=== PATIENT | female | born 1935 | race Caucasian/White ===

== ENCOUNTER 2016-11-21 21:41 | Inpatient (IN) | payer MEDICAID ==
[~2016-11-21] VITALS: Ht 160 cm; Wt 45.0 kg
[2016-11-21] MEDS: DEXTROSE 5%-0.45% NACL 1,000 ML IV SCH (01:00)
[~2016-11-21 21:41] MED LIST: ACET-2047 PO; AMLO5TAB4 PO; ATOR80TA75 PO; CIPR-193 PO; CLOP75TA4 PO; LISI40TA9 PO; METO-448 PO; NEPH PO
[2016-11-21] MEDS ORDERED: VANCOMYCIN 1 GM (PMX) 250 ML IVPB STA (21:58)
[2016-11-21] MEDS ORDERED: CEFEPIME 2GM/50 ML (PMX) 50 ML IVPB STA (21:58)
--- NOTE | 2016-11-21 22:53 | RADRPT ---
PROCEDURE: CT Brain without contrast. CLINICAL INDICATION: Altered mental status changes TECHNIQUE: A CT of the brain was performed on a GE Collaberapeed 64-slice CT scanner utilizing axial imaging from the skull base through the vertex without IV contrast. Multiplanar reformatted images were made. Images were reviewed on a PACS workstation. The CTDIvol is 45.01 mGy and the DLP is 720 .23 mGycm. One of the following 3 dose reduction techniques were used: Automated exposure control; adjustment of the mA and/or kV according to patient size; or use of iterative reconstruction technique. COMPARISON: None FINDINGS: There is no intracranial hemorrhage, mass effect, or midline shift. No extra-axial fluid collection is seen. The ventricles and sulci are age appropriate. Moderate diffuse volume loss is present. A large wedge-shaped decreased attenuation is present in the right cerebral hemisphere involving the right anterior and middle cerebral artery distribution as well as a right chronic occipital lobe inf arct in the right posterior cerebral artery distribution. Subtle decreased attenuation is also note d in the bilateral cerebellar hemispheres and in the right greater than left centrum semiovale and p eriventricular white matter. Moderate vascular calcifications are present of the bilateral intracra nial internal carotid arteries and the bilateral vertebral arteries. The appearance of right [place] tiana degeneration is noted. The visualized scalp and calvarium are normal. The bilateral orbits demonstrate sequela of prior ca taract surgery. The bilateral paranasal sinuses, mastoid air cells and middle ear cavities are royce r. IMPRESSION: 1. No evidence of acute intracranial hemorrhage, infarcts, or acute intracranial pathology. MRI is recommended to further evaluate this patient to exclude an acute superimposed on above chronic infar cts. 2. Chronic right anterior and middle cerebral artery as well as subtotal posterior cerebral artery infarct with involvement of the right cerebral hemisphere as noted above. 3. 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 Severe volume loss in the right cerebral hemisphere with moderate volume loss diffusely. 5. Moderate atherosclerotic vascular disease RPTAT: HDC .Cara Arteaga MD, Date Time Electronically viewed and signed by .Cara Arteaga MD, on 11/21/2016 22:52 .C/
--- NOTE | 2016-11-21 23:07 | RADRPT ---
PROCEDURE: XR Chest. CLINICAL INDICATION: Possible sepsis. TECHNIQUE: Single frontal view of the chest was obtained COMPARISON: None FINDINGS: The heart and mediastinum are within normal limits. Atherosclerotic calcifications in the tortuous thoracic aorta. The lungs are clear. There is no pleural effusion or pneumothorax. IMPRESSION: Atherosclerotic calcifications in the tortuous thoracic aorta, otherwise, no evident acute cardiopul monary disease. RPTAT: [facility] Physician Giovanni Date Time Electronically viewed and signed by Physician Giovanni on 11/21/2016 23:07 RS/
[2016-11-21] MEDS ORDERED: ALBUTEROL 0.5% (NEB) 2.5 MG/0.5 ML AMP NEB PRN (23:30)
[2016-11-21] MEDS ORDERED: NACL 0.9% 3 ML SYG IV SCH (23:30)
[2016-11-21] MEDS ORDERED: ACETAMINOPHEN 325 MG TAB PO PRN (23:30)
[2016-11-21] MEDS ORDERED: HYDROCODONE/APAP (5/325) TAB PO PRN (23:30)
[2016-11-21] MEDS ORDERED: VANCOMYCIN IV PER PHARMACY XX SCH (23:30)
[2016-11-21] MEDS ORDERED: IPRATROPIUM (NEB) 0.5 MG/2.5 ML AMP NEB PRN (23:30)
[2016-11-21] MEDS ORDERED: ONDANSETRON 4 MG INJ IV PRN (23:30)
[2016-11-21 23:31] LABS: BASOPHIL # 0.1 10^3/ul (0.0-0.1); BASOPHILS % 0.6 % (0.0-2.0); EOSINOPHILS % 0.1 % (0.0-7.0); HEMATOCRIT 40.3 % (37.0-47.0); HEMOGLOBIN 12.5 g/dl (12.0-16.0); LYMPHOCYTES # 2.9 10^3/ul (0.8-2.9); MEAN CORPUSCULAR HEMOGLOBIN 20.4 pg (29.0-33.0); MEAN CORPUSCULAR HGB CONC 31.1 g/dl (32.0-37.0); MEAN CORPUSCULAR VOLUME 65.5 fl (82.0-101.0); MEAN PLATELET VOLUME 9.3 fl (7.4-10.4); MONOCYTE # 0.9 10^3/ul (0.3-0.9); MONOCYTES % 5.2 % (0.0-11.0); NEUTROPHIL # 14.2 10^3/ul (1.6-7.5); NEUTROPHILS % 78.1 % (39.0-77.0); PLATELET COUNT 328 10^3/UL (140-440); RED BLOOD COUNT 6.16 10^6/ul (4.20-5.40); RED CELL DISTRIBUTION WIDTH 19.5 % (11.5-14.5); UNCORRECTED WBC 18.2 10^3/ul (4.8-10.8); WHITE BLOOD COUNT 18.2 10^3/ul (4.8-10.8)
[2016-11-21 23:32] LABS: CONDITION 1; LH ANALYZER COMMENTS 1
--- NOTE | 2016-11-21 23:46 | ERA ---
ER Documentation Chief Complaint Date/Time DATE: 11/21/16 TIME: 23:44 Chief Complaint biba from snf due to alocn and difficulty swallowing since this am hx ofcva HPI This is an 81-year-old was brought in by ambulance for altered level consciousness from a halfway facility. She does have difficulty swallowing. Her transition she possibly aspirated. No fevers no chills. No other current complaints ROS All systems reviewed and are negative except as per history of present illness. PMhx/Soc History of Surgery: No (tamika) Anesthesia Reaction: No Hx Neurological Disorder: Yes (cva with left side weakness) Hx Respiratory Disorders: No (tamika) Hx Cardiac Disorders: No (tamika) Hx Psychiatric Problems: No (tamika) Hx Miscellaneous Medical Probl: No (tamika) Hx Alcohol Use: No Hx Substance Use: No Hx Tobacco Use: No Smoking Status: Never smoker Physical Exam Vitals Vital Signs Date Time Temp Pulse Resp B/P Pulse Ox O2 Delivery O2 Flow Rate FiO2 11/21/16 22:08 97.7 91 20 103/66 97 11/21/16 22:08 Nasal Cannula 2 Physical Exam Const: [] Head: Atraumatic Eyes: Normal Conjunctiva ENT: Normal External Ears, Nose and Mouth. Neck: Full range of motion..~ No meningismus. Resp: Clear to auscultation bilaterally Cardio: Regular rate and rhythm, no murmurs Abd: Soft, non tender, non distended. Normal bowel sounds Skin: No petechiae or rashes Back: No midline or flank tenderness Ext: No cyanosis, or edema Neur: Awake and alert Psych: Normal Mood and Affect Result Diagram: 11/21/165 Results 24 hrs Laboratory Tests Test 11/21/16 22:15 Basophils # 0.110^3/ul Basophils % 0.6% Blood Morphology Comment Eosinophils # 0.010^3/ul Eosinophils % 0.1% Hematocrit 40.3% Hemoglobin 12.5g/dl Lymphocytes # 2.910^3/ul Lymphocytes % 16.0% Mean Corpuscular Hemoglobin 20.4pg Mean Corpuscular Hemoglobin Concent 31.1g/dl Mean Corpuscular Volume 65.5fl Mean Platelet Volume 9.3fl Monocytes # 0.910^3/ul Monocytes % 5.2% Neutrophils # 14.210^3/ul Neutrophils % 78.1% Nucleated Red Blood Cells # 0.010^3/ul Nucleated Red Blood Cells % 0.0/100WBC Platelet Count 42493^3/UL Red Blood Count 6.1610^6/ul Red Cell Distribution Width 19.5% White Blood Count 18.210^3/ul Current Medications Medications (Trade) Dose Ordered Sig/Kary Route PRN Reason Start Time Stop Time Status Last Admin Dose Admin Vancomycin HCl 250 ml @ 125 mls/hr ONCE STAT IVPB 11/21/16 21:58 11/21/16 23:57 Cefepime HCl 50 ml @ 100 mls/hr ONCE STAT IVPB 11/21/16 21:58 11/21/16 22:27 DC 11/21/16 23:14 Dextrose/Sodium Chloride (D5-1/2ns) 1,000 ml @ 70 mls/hr [id number] IV 11/21/16 23:25 UNV IV Flush (NS 3 ml) 3 ml PER PROTOCOL IV 11/21/16 23:30 UNV Ondansetron HCl (Zofran Inj) 4 mg Q6H PRN IV NAUSEA AND/OR VOMITING 11/21/16 23:30 UNV Acetaminophen (Tylenol Tab) 650 mg Q6H PRN PO PAIN LEVEL 1-3 OR FEVER 11/21/16 23:30 UNV Acetaminophen/ Hydrocodone Bitart ([place] (5/325)) 1 tab Q6H PRN PO PAIN LEVEL 4-6 11/21/16 23:30 UNV Morphine Sulfate (morphine) 2 mg Q4H PRN IV PAIN LEVEL 7-10 11/21/16 23:30 UNV Docusate Sodium (Colace) 100 mg Q12H PRN PO CONSTIPATION 11/21/16 23:30 UNV Pantoprazole 40 mg 40 mg DAILY@06 IV 11/22/16 06:00 UNV Cefepime HCl (Maxipime 1gm/50 ml (Pmx)) 50 ml @ 100 mls/hr Q12 IV 11/22/16 09:00 UNV Vancomycin HCl (Vanco Iv Per Pharmacy) 1 ea PER PROTOCOL XX 11/21/16 23:30 UNV Albuterol (Proventil 0.5% (Neb)) 2.5 mg Q2H RESP THERAPY PRN NEB SHORTNESS OF BREATH 11/21/16 23:30 UNV Ipratropium [place] (Atrovent 0.02% (Neb)) 0.5 mg Q2H RESP THERAPY PRN NEB SHORTNESS OF BREATH 11/21/16 23:30 UNV Procedures/MDM EKG: Rate/Rhythm: [Normal Sinus Rhythm] QRS, ST, T-waves: [No changes consistent w/ acute ischemia] Impression: [No evidence of ischemia or arrhythmia] Chest X-ray 1V Interpreted by me: Soft Tissue: No acute abnormalities Bones: No acute abnormalities Mediastinum/Cardiac Silhouette/Lungs: Aspiration pattern Medical decision making: Is an 78-year-old female as well as aspiration pattern pneumonia. At this point is clinically stable. Patient will be admitted to Dr. Lr who is the patient's primary care physician. Started on broad- spectrum antibiotics. Departure Diagnosis: Primary Impression: Altered level of consciousness Additional Impression: Aspiration pneumonia Qualified Code: J69.0 - Aspiration pneumonia, unspecified aspiration pneumonia type, unspecified laterality, unspecified part of lung Condition: Stable EMI PERALTA Nov 21, 2016 23:46
[2016-11-22] VITALS (13 sets, daily range): BP systolic 105–158; BP diastolic 63–92; PULSE 88–109; RESP 20; Ht 160 cm; Wt 45.0 kg
[2016-11-22 00:17] LABS: ADD UMIC YES; URINE BILIRUBIN (Dip) NEGATIVE (NEGATIVE); URINE BLOOD (Dip) 3+ (NEGATIVE); URINE COLOR YELLOW (YELLOW); URINE GLUCOSE (Dip) NEGATIVE (NEGATIVE); URINE KETONES (Dip) NEGATIVE (NEGATIVE); URINE LEUKOCYTE ESTERASE (Dip) 3+ (NEGATIVE); URINE NITRITE (Dip) POSITIVE (NEGATIVE); URINE TOTAL PROTEIN (Dip) 2+ (NEGATIVE); URINE UROBILINOGEN (Dip) 0.2 E.U./dL (0.1-1.0)
[2016-11-22 00:21] LABS: ALBUMIN 3.7 g/dl (3.3-4.9)
[2016-11-22 00:22] LABS: POTASSIUM 4.3 mmol/L (3.5-5.1)
[2016-11-22 00:24] LABS: ALBUMIN/GLOBULIN RATIO 0.75; BILIRUBIN,INDIRECT 0.1 mg/dl (0-1.1); BILIRUBIN,TOTAL 0.1 mg/dl (0.2-1.3); CREATININE 1.9 mg/dl (0.44-1.00); TOTAL PROTEIN 8.6 g/dl (6.1-8.1)
[2016-11-22 00:25] LABS: CALCIUM 11.6 mg/dl (8.4-10.2)
[2016-11-22 00:34] LABS: BACTERIA,URINE MANY; SQUAMOUS EPITHELIAL CELL,UR FEW
[2016-11-22 00:39] LABS: TROPONIN-I 0.203 ng/ml (0.00-0.12)
[2016-11-22 05:19] LABS: PROTIME 82.3 Sec (12.2-14.2); PT RATIO 6.4
[2016-11-22 05:38] LABS: ALBUMIN 3.6 g/dl (3.3-4.9); POTASSIUM 4.5 mmol/L (3.5-5.1)
[2016-11-22 05:40] LABS: BASOPHILS % 0.4 % (0.0-2.0); CREATININE 1.85 mg/dl (0.44-1.00); EOSINOPHILS # 0.1 10^3/ul (0.0-0.5); EOSINOPHILS % 0.5 % (0.0-7.0); HEMATOCRIT 42.4 % (37.0-47.0); HEMOGLOBIN 13.1 g/dl (12.0-16.0); LYMPHOCYTES # 2.6 10^3/ul (0.8-2.9); LYMPHOCYTES % 20.3 % (15.0-51.0); MEAN CORPUSCULAR HEMOGLOBIN 20.5 pg (29.0-33.0); MEAN CORPUSCULAR VOLUME 66.3 fl (82.0-101.0); MEAN PLATELET VOLUME 9.3 fl (7.4-10.4); MONOCYTES % 8.2 % (0.0-11.0); NEUTROPHIL # 8.9 10^3/ul (1.6-7.5); NEUTROPHILS % 70.6 % (39.0-77.0); PLATELET COUNT 318 10^3/UL (140-440); RED CELL DISTRIBUTION WIDTH 19.5 % (11.5-14.5); UNCORRECTED WBC 12.6 10^3/ul (4.8-10.8); WHITE BLOOD COUNT 12.6 10^3/ul (4.8-10.8)
[2016-11-22 05:41] LABS: ALBUMIN/GLOBULIN RATIO 0.73; BILIRUBIN,INDIRECT 0.1 mg/dl (0-1.1); BILIRUBIN,TOTAL 0.1 mg/dl (0.2-1.3); CALCIUM 11.4 mg/dl (8.4-10.2); TOTAL PROTEIN 8.5 g/dl (6.1-8.1)
[2016-11-22 05:52] LABS: CONDITION 1; LH ANALYZER COMMENTS 1
[2016-11-22 05:57] LABS: PARTIAL THROMBOPLASTIN TIME 99.2 Sec (25.0-35.0)
[2016-11-22 06:03] LABS: THYROID STIMULATING HORMONE 1.41 MIU/L (0.465-4.680)
[2016-11-22 06:04] LABS: INR > 10.00
[2016-11-22] MEDS: PANTOPRAZOLE 40 MG INJ IV SCH (06:20)
[2016-11-22] MEDS ORDERED: PHYTONADIONE 10 MG in DEXTROSE 5% 50 ML IVPB ONE (07:00)
[2016-11-22] MEDS ORDERED: CEFEPIME 1GM/50 ML (PMX) 50 ML IV SCH (09:00)
[2016-11-22] MEDS: DEXTROSE 5%-0.45% NACL 1,000 ML IV SCH ×2 (14:28→23:40)
[2016-11-22] MEDS: ASPIRIN 81 MG TAB PO SCH (20:30)
[2016-11-22] MEDS: METOPROLOL 25 MG TAB GTB SCH (21:00)
--- NOTE | 2016-11-22 21:09 | HP ---
DATE OF ADMISSION: 11/21/2016 REASON FOR ADMISSION: Sepsis, UTI, hypernatremia, non-ST elevation myocardial, profound dehydration . 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 Currently, she resides at [facility]. Unfortunately, she also developed a left heel necrotic ulcer. She is being followed closely at [facility]. The patient, unfortunately prior to adm ission, was noted to be more lethargic and not eating. I decided to send her to the hospital for ev aluation, as the patient was more confused and encephalopathic. Upon arrival to the hospital, the p atient underwent extensive workup. Labs revealed a white count of 18.2. UA was profoundly positive . She had +3 leukocyte esterase, positive nitrite, and WBC greater than 50. In addition, INR was s upratherapeutic, greater than 10. Chest x-ray was read as negative, but she may have developed omi y aspiration pneumonia. CAT scan of the brain did not reveal any evidence of acute bleeding. It wa s decided to admit the patient for further care, as patient also had elevated BUN and creatinine at BUN of 100, creatinine of 1.9 with a lactic acid of 3.2, all suggestive of sepsis. The patient was hydrated aggressively and started on broad-spectrum antibiotic with vancomycin and cefepime. Sodium was high as well at 160. Since arrival, I also gave her vitamin K 10 mg IV x1. The patient cannot provide any history because of her encephalopathy. Family is at bedside, both son and daughter. I spoke with them for over 50 minutes about patient's condition and plan of care. We reviewed labs a nd old radiographic imaging. Case discussed with nursing staff as well, and I have spoken today wit h the speech therapist, as patient is high risk of aspiration and currently lethargic because of her acute medical issues. The patient is admitted for further care stable, but guarded condition overa ll. 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 CODE STATUS: The patient is FULL CODE. SURGICAL HISTORY: None. MEDICATIONS: The patient's medication includes: 1. Coumadin 3 mg daily, currently on hold because of supratherapeutic INR. Actually was changed 2 mg daily. 2. Recently was treated with Cipro for UTI for 7 days, on 11/02/2016. 3. Folic acid 1 mg daily. 4. Multivitamin 1 tablet daily. 5. Plavix 75 mg daily. 6. On pureed diet, no added salt. 7. Metoprolol 25 b.i.d. 8. Tylenol p.r.n. 9. Lipitor 20 mg at bedtime. 10. Dexilant 20 mg daily. 11. Lisinopril 40 mg daily. 12. Vitamin D 50,000 every week. 13. ____ 30 mL daily. 14. Zofran p.r.n. 15. Ibuprofen p.r.n. ALLERGIES: NO KNOWN DRUG ALLERGIES. PHYSICAL EXAMINATION: VITAL SIGNS: Temperature 98.4, pulse is 100, respirations 20, blood pressure 125/79, saturation 96% on 2 liters. GENERAL: The patient in no acute distress, frail, thin looking, pale. CARDIOVASCULAR: S1, S2, regular rate. LUNGS: Decreased bilaterally, poor effort. ABDOMEN: Soft, nontender. EXTREMITIES: No clubbing, cyanosis, or edema. The patient with severe muscle atrophy throughout. She has a necrotic left heel ulcer. NEUROLOGIC: Decreased mobility throughout. EKG: Shows sinus rhythm with short CT, possible left atrial enlargement, septal infarct, age undete rmined, at 90 beats per minute. IMAGING: Chest x-ray shows atherosclerotic calcification and tortuous thoracic aorta, otherwise no evidence of acute cardiopulmonary disease. CT scan of the brain shows no evidence of acute intracra nial hemorrhage, infarct, or acute intracranial pathology. MRI is recommended to further evaluate t his patient to exclude an acute superimposed on above chronic infarct. There is chronic right anter ior and middle cerebral artery as well as subtotal posterior cerebral artery infarct with involvemen t of the right cerebral hemisphere noted. There is chronic, right greater than left, bilateral micr ovascular ischemic changes, severe volume loss in the right cerebral hemisphere with moderate volume loss diffusely, and moderate atherosclerotic vascular disease. LABORATORY DATA: White count initially was 18.2, now is 12.6, hemoglobin 13.1, hematocrit 42, plate let count 318 with normal differential. Chemistry: Sodium is 162, potassium 4.5, chloride 120, bic arbonate 23, BUN is 102, creatinine 1.85, glucose 141. Hemoglobin A1c 6.0. Troponin was slightly h igh at 0.29, 0.15. Calcium elevated at 11.4. Lactic acid normalized. It was 3.2 to 2.6, now 0.7. TSH 1.4. Cholesterol is 135, LDL 84. Total protein 8.5. UA was remarkably positive as noted abov e. INR greater than 10. Urine culture showed gram-negative rods greater than 100,000 ____. ASSESSMENT AND PLAN: This is an unfortunate 81-year-old female with history of cereb rovascular accident, very debilitated, dysphagia, hypertension, left hemiplegia, carotid stenosis wh o presents with encephalopathy, dehydration, acute renal failure, urinary tract infection, and sepsi s. 1. Respiratory. Stable. The patient is high risk for aspiration. In the meantime, we will keep h er n.p.o. until she is more alert. I appreciate speech therapy. May consider giving her food for o ral gratification, but overall will have to monitor. In the meantime, n.p.o. as the patient is too lethargic. Continue oxygen support and monitor. 2. Cardiovascular. The patient with supratherapeutic INR status post vitamin K 10 mg IV x1. Follo w up INR. Goal INR between 2 and 3, as she had history of deep vein thrombosis. We will obtain a l ower extremity ultrasound to rule out deep vein thrombosis and will follow. Continue medical manage ment, otherwise. This patient has elevated troponin as well. Cardiology was consulted. Aspirin on hold secondary to elevated INR. Continue statin and we will follow. 3. Renal. The patient with acute renal failure, severe dehydration, hypernatremia. Continue IV fl uids with D5 half normal saline. 4. Malnutrition. We will obtain GI consultation for G-tube placement, as family is overall in agre ement. 5. History of elevated CEA. We will repeat. GI to follow. Will check stool for occult blood. 6. Sepsis. The patient with urosepsis. We will continue antibiotics with vancomycin and cefepime. White count is already improving. Follow up urine culture results. 7. Left heel necrotic tissue. Will obtain venous and arterial ultrasound of the lower extremities to check for circulation. Will consult the [facility] for further recommendations . 8. Air mattress bed was ordered to be placed soon. 9. Case discussed with family members in detail at bedside. We will follow. Dictated By: SHAWNA DONALD/RAQUEL Conf#: [id number] DID#: [id number]
--- NOTE | 2016-11-22 21:34 | RADRPT ---
PROCEDURE: US bilateral lower extremity veins. CLINICAL INDICATION: Bilateral leg pain and swelling. Left heel ulcer. TECHNIQUE: Multiple longitudinal and transverse images of the bilateral lower extremity veins were obtained with quick scale and color Doppler imaging. The common femoral vein, femoral vein, and popl iteal vein were evaluated. 2D grayscale measurements with compression sonography, color Doppler, and pulsed Doppler with augmentation. COMPARISON: No prior studies are available for comparison. FINDINGS: The bilateral common femoral, femoral and popliteal veins are normally compressible throughout. Col or flow demonstrates normal filling of the vessels. Normal waveforms are visualized and there is no rmal response to augmentation. 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 IMPRESSION: 1. No evidence of deep vein thrombosis involving either lower extremity. 2. 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 RPTAT: QQ .Marc Hernandez MD, MD Date Time Electronically viewed and signed by .Marc Hernandez MD, on 11/22/2016 21:34 .R/
--- NOTE | 2016-11-22 21:38 | RADRPT ---
PROCEDURE: US bilateral lower extremity arteries. CLINICAL INDICATION: Bilateral leg pain. Claudication that interferes significantly with the julio césar ent's lifestyle. Left heel ulcer. TECHNIQUE: Multiple longitudinal and transverse images of the bilateral lower extremity arteries w ere obtained with quick scale, pulsed Doppler, and color Doppler imaging. COMPARISON: No prior studies are available for comparison. FINDINGS: Right COMMERCIAL REAL ESTATE AGENT:58 cm/sec PSFA:44 cm/sec MSFA:30 cm/sec DSFA:26 cm/sec POP:55 cm/sec CHUTE GREASER:30 cm/sec DPA:Not visualized Left COMMERCIAL REAL ESTATE AGENT:73 cm/sec PSFA:75 cm/sec MSFA:83 cm/sec DSFA:54 cm/sec POP:75 cm/sec CHUTE GREASER:34 cm/sec DPA:20 cm/sec This is a suboptimal study due to patient inability to cooperate. 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 IMPRESSION: 1. Suboptimal study. 2. 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 Correl ation with CT angiogram of the abdominal aorta and runoff vessel should be considered. RPTAT: QQ .Marc Hernandez MD, MD Date Time Electronically viewed and signed by .Marc Hernandez MD, on 11/22/2016 21:38 .R/
[2016-11-22] MEDS: ASPIRIN 300 MG SUPP PR SCH (22:34)
[2016-11-23] VITALS (12 sets, daily range): BP systolic 123–146; BP diastolic 74–90; PULSE 87–107; RESP 18–20
[2016-11-23] MEDS: PANTOPRAZOLE 40 MG INJ IV SCH (06:07)
[2016-11-23 07:10] LABS: BASOPHILS % 0.3 % (0.0-2.0); EOSINOPHILS # 0.1 10^3/ul (0.0-0.5); EOSINOPHILS % 0.9 % (0.0-7.0); HEMATOCRIT 41.9 % (37.0-47.0); LYMPHOCYTES # 2.3 10^3/ul (0.8-2.9); LYMPHOCYTES % 19.1 % (15.0-51.0); MEAN CORPUSCULAR HEMOGLOBIN 20.6 pg (29.0-33.0); MEAN CORPUSCULAR VOLUME 66.5 fl (82.0-101.0); MEAN PLATELET VOLUME 9.5 fl (7.4-10.4); MONOCYTE # 0.9 10^3/ul (0.3-0.9); MONOCYTES % 7.1 % (0.0-11.0); NEUTROPHIL # 8.9 10^3/ul (1.6-7.5); NEUTROPHILS % 72.6 % (39.0-77.0); PLATELET COUNT 261 10^3/UL (140-440); RED CELL DISTRIBUTION WIDTH 19.4 % (11.5-14.5); UNCORRECTED WBC 12.2 10^3/ul (4.8-10.8); WHITE BLOOD COUNT 12.2 10^3/ul (4.8-10.8)
[2016-11-23 07:45] LABS: INR 1.53; PROTIME 18.5 Sec (12.2-14.2); PT RATIO 1.4
[2016-11-23 07:46] LABS: CONDITION 1; LH ANALYZER COMMENTS 1; PARTIAL THROMBOPLASTIN TIME 41.9 Sec (25.0-35.0)
[2016-11-23 07:49] LABS: ALBUMIN 3.4 g/dl (3.3-4.9); POTASSIUM 4.7 mmol/L (3.5-5.1)
[2016-11-23 07:51] LABS: BILIRUBIN,INDIRECT 0.2 mg/dl (0-1.1); BILIRUBIN,TOTAL 0.2 mg/dl (0.2-1.3); CREATININE 1.17 mg/dl (0.44-1.00)
[2016-11-23 07:52] LABS: ALBUMIN/GLOBULIN RATIO 0.72; TOTAL PROTEIN 8.1 g/dl (6.1-8.1)
--- NOTE | 2016-11-23 08:07 | CONS ---
DATE OF ADMISSION: 11/21/2016 DATE OF CONSULTATION: 11/22/2016 TYPE OF CONSULTATION: Cardiology. REFERRING PHYSICIAN: Carlos Bowers MD REASON FOR CONSULTATION: Abnormal troponin. CHIEF COMPLAINT: Possible aspiration pneumonia, difficulty swallowing, altered level of consciousne ss. HISTORY OF PRESENT ILLNESS: Thank you for this referral. History obtained from the extensive revie w of the chart, review of the old chart, discussion with the staff and physician. The patient is un able to provide any history to me. This is an unfortunate 81-year-old female with multiple complica calos medical history who was brought from senior living, apparently because of altered level of consci ousness. She was felt to have underlying infection. Her troponin was mildly elevated for which I w as kindly asked ____. No history could be obtained from the patient. No reported chest pain or pre ssure; however, again unable to provide any history from the patient. PAST MEDICAL HISTORY: Mostly from review of the old chart, history of CVA, hypertension, hyponatrem ia, dyslipidemia, dysphagia, history of complete chronic occlusion of the right internal carotid art bunny. ALLERGIES: NO KNOWN DRUG ALLERGIES. PAST SURGICAL HISTORY: None. SOCIAL HISTORY: No reported active tobacco or drug abuse, in a senior living. FAMILY HISTORY: No reported coronary artery disease. MEDICATIONS: As per medication reconciliation, personally reviewed. REVIEW OF SYSTEMS: Unable to obtain except for the above-mentioned. PHYSICAL EXAMINATION: VITAL SIGNS: Temperature 98.4, heart rate 100, blood pressure 125/79, respiration rate of 20, satur ating 96%. HEENT: Normocephalic, atraumatic. Thin female. Pupils are equal. CARDIOVASCULAR: Regular rate and rhythm. PULMONARY: No wheezes heard. GASTROINTESTINAL: Soft. No rebound. EXTREMITIES: With positive ankle edema. NEUROLOGIC: Opens eyes. Does not answer questions. LABORATORY: 1. WBC of 12.6, hemoglobin 13.1, platelets of 318. Sodium 162, potassium 4.5, BUN of 102, creatini ne 1.85, glucose of 141. Troponin is 0.203, second was 0.153. Review of the old chart shows that c reatinine was normal at 0.6 a few months ago. 2. EKG shows normal sinus rhythm. Anteroseptal infarct, age undetermined. 3. Urine shows gram-negative rods. 4. Chest x-ray shows ____ calcification, tortuous thoracic aorta. No acute cardiopulmonary disease . Brain CT shows no evidence of acute intracranial hemorrhage, infarct, or acute intracranial patho logy. ASSESSMENT AND PLAN: 1. Abnormal troponin, most likely ____ false positive troponin secondary to renal failure. 2. Acute renal failure. 3. Acute hypernatremia. 4. Dehydration. 5. Urinary tract infection. 6. Encephalopathy, probably related to above. 7. History of cerebrovascular accident. 8. Hypertension. RECOMMENDATIONS: I will start the patient on aspirin. Will start the patient on low dose of beta-b locker. IV fluid as per internal medicine. Follow up electrolytes and correct as needed. Dictated By: REBECA RADFORD/RAQUEL Conf#: [id number] DID#: [id number]
[2016-11-23 08:21] LABS: THYROID STIMULATING HORMONE 2.8 MIU/L (0.465-4.680)
[2016-11-23] MEDS ORDERED: CEFEPIME 1GM/50 ML (PMX) 50 ML IV SCH (09:00)
[2016-11-23] MEDS: ASPIRIN 81 MG TAB PO SCH (09:00)
[2016-11-23] MEDS ORDERED: INFLUENZA VIRUS VACCINE 0.5 ML (DISPENSING) IM* ONE (09:00)
[2016-11-23] MEDS: METOPROLOL 25 MG TAB GTB SCH ×2 (09:00→21:00)
[2016-11-23 09:10] LABS: MAGNESIUM 2.6 mg/dl (1.7-2.5); PHOSPHORUS 3.4 mg/dl (2.5-4.9)
[2016-11-23] MEDS: DEXTROSE 5%-0.45% NACL 1,000 ML IV SCH ×2 (09:40→21:48)
--- NOTE | 2016-11-23 11:02 | RADRPT ---
Echocardiogram Report Patient Name: JASE LOYA Gender: Female Date: 1935 Study Date: 23-Nov-2016 Monitoring And Evaluation Advisor: Ed Mendieta [facility] Location: [id number] Ref. Physician: REBECA CLANCY Quality: Technically Difficult Study Procedures: Transthoracic echocardiogram with complete 2D, M-Mode, and doppler examination. Indications: positive troponin. 2D/M Mode Doppler Measurement Value Normal Ranges Measurement Value Normal Ranges LVIDd 2D 3.2 3.5 - 5.6 cm AV Peak Matthew 1.7 m/sec LVIDs 2D 2.0 2.1 - 4.1 cm AV Peak PG 11.0 mmHg FS 2D 38.9 % LVOT Peak Matthew 1.0 m/sec LVPWd 2D 0.9 0.6 - 1.1 cm LVOT Peak PG 4.0 mmHg IVSd 2D 0.8 0.6 - 1.1 cm MV E Peak Matthew 0.5 m/sec IVS/LVPW 2D 0.9 MV A Peak Matthew 1.1 m/sec AoR Diam 2D 2.6 2.0 - 3.7 cm MV E/A 0.5 LA/Ao 2D 1 0 - 1 MV Decel Time 173 msec EDV 2D 33.1 cm3 MV E/A 0.5 ESV 2D 7.5 cm3 TR Peak Matthew 2.5 m/sec LA Dimen 2D 3.2 2.3 - 4.0 cm TR Peak PG 25.0 mmHg RVSP 28.0 mmHg Findings Left Ventricle: Normal left ventricular systolic function. Normal left ventricular cavity size. Normal left ventricular wall thickness. Ejection fraction is visually estimated at 65 - 70 %. Tissue Doppler/Mitral Doppler indices are consistent with impaired relaxation (Stage I diastolic dysfunction). Right Ventricle: Mild enlargement of right ventricle. Mild right ventricular hypokinesis. Left Atrium: The left atrium is normal in size. Right Atrium: There is mild enlargement of right atrium. Mitral Valve: Mitral valve leaflets appear mildly thickened. Mild mitral annular calcification. Trace mitral regurgitation. Aortic Valve: No significant aortic stenosis or insufficiency. Aortic cusps appear moderately calcified. Tricuspid Valve: Normal appearance of the tricuspid valve. Estimated peak PA systolic pressure 28 mmHg. There is trace tricuspid regurgitation. Pericardium: Normal pericardium with no significant pericardial effusion. Aorta: Normal aortic root. IVC: Normal size and normal respiratory collapse consistent with normal right atrial pressure. Conclusions 1.Normal left ventricular systolic function. Normal left ventricular cavity size. Normal left ventricular wall thickness. Ejection fraction is visually estimated at 65 - 70 %. Tissue Doppler/Mitral Doppler indices are consistent with impaired relaxation (Stage I diastolic dysfunction). 2.The left atrium is normal in size. 3.Mitral valve leaflets appear mildly thickened. Mild mitral annular calcification. Trace mitral regurgitation. 4.No significant aortic stenosis or insufficiency. Aortic cusps appear moderately calcified. 5.Normal appearance of the tricuspid valve. Estimated peak PA systolic pressure 28 mmHg. There is trace tricuspid regurgitation. Electronically Signed By: Rebeca Clancy 23-Nov-2016 11:01:30 -0800 Patient Name: JASE LOYA Study Date: 23-Nov-[id number]
[2016-11-23 11:43] LABS: CK-MB 4.49 ng/ml (0.0-2.4)
[2016-11-23 11:46] LABS: TROPONIN-I 0.093 ng/ml (0.00-0.12)
[2016-11-23] MEDS ORDERED: VANCOMYCIN 750 MG in SOD CHLORIDE 0.9% 150 ML IVPB SCH ×2 (12:00→23:00)
[2016-11-23] MEDS: ASPIRIN 300 MG SUPP PR SCH (13:00)
[2016-11-23] MEDS ORDERED: GENTAMICIN IV PER PHARMACY XX SCH (15:00)
[2016-11-23] MEDS ORDERED: GENTAMICIN 80 MG/NS (PMX) 50 ML IVPB SCH (16:00)
--- NOTE | 2016-11-23 17:32 | PN ---
DATE: 11/23/2016 CARDIOLOGY FOLLOWUP PROGRESS NOTE SUBJECTIVE: Surgery discussed with the staff. Rhythm strip was reviewed. The patient remains in s inus rhythm, frequent PACs, nonverbal, unable to obtain history from the patient. MEDICATIONS: Reviewed. The patient is n.p.o., unable to take any p.o. medications. PHYSICAL EXAMINATION: VITAL SIGNS: Temperature 97.8, heart rate of 103, blood pressure 137/85, respiratory rate of 18. HEENT: Normocephalic, atraumatic. Elderly female. Pupils are equal. NECK: No JVD. CARDIOVASCULAR: Regular rate and rhythm. Systolic murmur. PULMONARY: With minimal rhonchi. GASTROINTESTINAL: Soft, nontender. EXTREMITIES: With no significant lower extremity edema. NEUROLOGIC: Opens her eyes, but drowsy. Left-sided weakness noted as well. LABORATORY: WBC of 12.2, hemoglobin 13.0, platelets 261. Sodium 157, potassium 4.7, BUN of 70, cre atinine 1.17, glucose 125. Troponin 0.093. Echocardiogram was obtained which was personally review ed, showed ejection fraction of 65% to 70%. ASSESSMENT AND PLAN: 1. Abnormal troponin consistent with false positive troponin. 2. Acute renal failure. 3. Severe hypernatremia. 4. Dehydration. 5. Urinary tract infection. 6. Severe encephalopathy with history of cerebrovascular accident. 7. Hypertension. RECOMMENDATIONS: Will correct electrolytes as needed. IV fluid as per internal medicine. Aspirin will be continued. Otherwise, beta sandip to be started once the patient tolerates p.o. medication . Dictated By: REBECA RADFORD/RAQUEL Conf#: [id number] DID#: [id number]
--- NOTE | 2016-11-23 18:54 | PN ---
DATE: 11/23/2016 SUBJECTIVE: The patient seen, alert and nonverbal, overall appears to be comfortable. Noted wound care consult. I spoke with the son today who has stated that he would like to defer the G-tube plac ement for 1 more day when he is here and present for the procedure. PHYSICAL EXAMINATION: VITAL SIGNS: Temperature 97.6, pulse 103, respirations 18, blood pressure 137/95, saturation 98% on 2 liters. GENERAL: The patient is in no acute distress. Pale, and very debilitated. CARDIOVASCULAR: S1 and S2, tachycardic. LUNGS: Decreased bilaterally. ABDOMEN: Soft, nontender. EXTREMITIES: No clubbing, cyanosis, or edema. Patient has a left heel necrotic wound and some sacr al skin changes. LABORATORY DATA: White count is 12.2, hemoglobin 13, hematocrit 42, platelet count is 261, neutroph ils 72%, lymphocytes 19%, MCV is low at 67. Chemistry: Sodium improved to ____, potassium 4.7, chl oride 120, bicarbonate 21, BUN is 70, creatinine 1.17, glucose 125. AST 32, ALT 18, alkaline phosph atase 96. TSH 2.8, free T4 is 1.46. INR went down to 1.53, status post vitamin K. We will hold it and start her on Lovenox until she gets the G-tube. UA was positive for +3 leukocyte esterase, WBC greater than 50. Cultures of the urine showed Proteus mirabilis actually resistant to cefotaxime, resistant to Bactrim, only sensitive to tobramycin, gentamicin, intermediate for imipenem. MEDICATIONS: 1. Vancomycin IV dose per pharmacy. 2. Cefepime 1 gram q.24 hours. 3. Lopressor 12.5 b.i.d. 4. Aspirin 81 mg daily. 5. Protonix 40 mg IV daily. 6. Zofran p.r.n. 7. Tylenol p.r.n. 8. [place] p.r.n. 9. Morphine p.r.n. 10. Colace p.r.n. 11. Albuterol and Atrovent p.r.n. 12. Remains on D5 half normal at 100 mL an hour. ASSESSMENT AND PLAN: This is an unfortunate 81-year-old female with history of cereb rovascular accident, very debilitated, dysphagia, hypertension, left hemiplegia, carotid stenosis wh o presented with encephalopathy, dehydration, acute renal failure, urinary tract infection and sepsi s. 1. Respiratory. Stable. Continue aspiration precautions. I would definitely recommend a feeding tube until she is more alert. Speech therapy may follow to see if patient can be fed for ____. The patient is treated for possible early aspiration pneumonia. 2. Cardiovascular. Resume Lovenox. Hold Coumadin or Eliquis as the patient to undergo G-tube plac ement. Beta blockers to be initiated. We will place a possible NG tube to perform medication admin istration and feeding for now until consent is obtained for G-tube. 3. Renal. Continue IV hydration with D5 half normal saline. Sodium level is improving. Kidney fu nction is improving. 4. Malnutrition. Definitely needs a G-tube placement. 5. Left heel wound with peripheral vascular disease. Amputation Prevention consultation was obtain ed. Continue wound care consult recommendations. 6. History of elevated CEA, we will follow up with levels, check stool for occult blood. 7. Urosepsis and possible aspiration pneumonia and multidrug resistant urinary tract infection. I added gentamicin. May switch cefepime to imipenem. 8. The patient now with air mattress bed to keep the patient comfortable. Family was informed. Dictated By: SHAWNA DONALD/RAQUEL Conf#: [id number] DID#: [id number]
--- NOTE | 2016-11-23 20:34 | CONS ---
Date/Time of Note Date/Time of Note DATE: 11/23/16 TIME: 20:29 Assessment/Plan Assessment/Plan Additional Assessment/Plan ASSESSMENT AND PLAN: 1. Abnormal troponin, most likely false positive troponin secondary to renal failure. 2. Acute renal failure. 3. Acute hypernatremia. 4. Dehydration. 5. Urinary tract infection. 6. Encephalopathy, probably related to above. 7. History of cerebrovascular accident. 8. Hypertension. 9.dysphagia Plan PEG if family agrees,pt.failed swallow studyand family wants to repeat it Consultation Date/Type/Reason Admit Date/Time Nov 21, 2016 at 23:08 Subjective hx not possible: pt non-verbal Constitutional: poor po Gastrointestinal: other (dysphagia) Genitourinary: dysuria Neurologic: confusion Past Medical History Medical History: GERD, hypertension, urinary tract infection, other (cva) Family History Significant Family History: no pertinent family hx Social History Alcohol Use: none Smoking Status: Current every day smoker Drug Use: none Exam/Review of Systems Vital Signs Vitals Vital Signs Date Time Temp Pulse Resp B/P Pulse Ox O2 Delivery O2 Flow Rate FiO2 11/23/16 20:23 87 11/23/16 19:53 97.7 18 138/90 98 11/23/16 18:42 2.0 11/23/16 08:30 Nasal Cannula Intake and Output 11/22/16 11/22/16 11/23/16 15:00 23:00 07:00 Intake Total 0 ml 0 ml Output Total 600 ml 550 ml Balance -600 ml -550 ml Exam Constitutional: frail Psych: confusion Head: atraumatic, normocephalic Eyes: EOMI, PERRL, nl conjunctiva, nl lids, nl sclera ENMT: nl external ears & nose, nl lips & teeth, nl nasal mucosa & septum Neck: non-tender, supple Respiratory: clear to auscultation, normal air movement Cardiovascular: nl pulses, regular rate and rhythm Gastrointestinal: nl liver, spleen, non-tender, soft Results Result Diagram: 11/23/16 0600 11/23/16 0600 Results 24 hrs Laboratory Tests Test 11/23/16 06:00 Activated Partial Thromboplast Time 41.9 H Alanine Aminotransferase (ALT/SGPT) 18 Albumin 3.4 Albumin/Globulin Ratio 0.72 Alkaline Phosphatase 96 Anion Gap 21 H Aspartate Amino Transf (AST/SGOT) 32 B-Type Natriuretic Peptide 428 Basophils # 0.0 Basophils % 0.3 Blood Morphology Comment Blood Urea Nitrogen 70 #H Calcium Level 11.0 H Carbon Dioxide Level 21 Chloride Level 120 H Cholesterol Level 125 Cholesterol/HDL Ratio 5.0 Creatine Kinase 52 Creatine Kinase Index 8.6 Creatinine 1.17 H Creatinine Kinase MB (Mass) 4.49 H Direct Bilirubin 0.00 Eosinophils # 0.1 Eosinophils % 0.9 Free Thyroxine 1.46 Globulin 4.70 H Glucose Level 125 HDL Cholesterol 25 L Hematocrit 41.9 Hemoglobin 13.0 INR International Normalized Ratio 1.53 Indirect Bilirubin 0.2 LDL Cholesterol, Calculated 76 Lymphocytes # 2.3 Lymphocytes % 19.1 Magnesium Level 2.6 H Mean Corpuscular Hemoglobin 20.6 L Mean Corpuscular Hemoglobin Concent 31.0 L Mean Corpuscular Volume 66.5 L Mean Platelet Volume 9.5 Monocytes # 0.9 Monocytes % 7.1 Neutrophils # 8.9 H Neutrophils % 72.6 Nucleated Red Blood Cells # 0.0 Nucleated Red Blood Cells % 0.0 Phosphorus Level 3.4 Platelet Count 261 Potassium Level 4.7 Prothrombin Time 18.5 #H Prothrombin Time Ratio 1.4 Red Blood Count 6.30 H Red Cell Distribution Width 19.4 H Sodium Level 157 H Thyroid Stimulating Hormone (TSH) 2.800 Total Bilirubin 0.2 Total Protein 8.1 Triglycerides Level 119 Troponin I 0.093 White Blood Count 12.2 H Medications Medications Current Medications Dextrose/Sodium Chloride (D5-1/2ns) 1,000 ml @ 100 mls/hr Q10H IV Last administered on 11/22/16t 23:40; Admin Dose 100 MLS/HR; Start 11/21/16 at 23:25 Ondansetron HCl (Zofran Inj) 4 mg Q6H PRN IV NAUSEA AND/OR VOMITING; Start at 23:30 Acetaminophen (Tylenol Tab) 650 mg Q6H PRN PO PAIN LEVEL 1-3 OR FEVER; Start at 23:30 Acetaminophen/ Hydrocodone Bitart ([place] (5/325)) 1 tab Q6H PRN PO PAIN LEVEL 4 -6; Start 11/21/16 at 23:30 Morphine Sulfate (morphine) 2 mg Q4H PRN IV PAIN LEVEL 7-10; Start 11/21/16 at 23:30 Docusate Sodium (Colace) 100 mg Q12H PRN PO CONSTIPATION; Start 11/21/16 at 23: 30 Pantoprazole (Protonix Iv) 40 mg DAILY@06 IV Last administered on 11/23/16 06: 07; Admin Dose 40 MG; Start 11/22/16 at 06:00 Aspirin (Aspirin) 81 mg DAILY PO ; Start 11/22/16 at 20:30 Aspirin (Aspirin) 300 mg DAILY MA Last administered on 11/23/16 13:00; Admin Dose 300 MG; Start 11/22/16 at 20:30 Metoprolol Tartrate 25 mg 25 mg BID GTB ; Start 11/23/16 at 21:00 Imipenem/ Cilastatin Sodium (Primaxin 500 Mg/ 100 ml (Pmx)) 100 ml @ 100 mls/ hr Q12 IVPB ; Start 11/23/16 at 21:00 Gentamicin Sulfate GENTAMICIN PER PHARMACY NOTE XX ; Start 11/23/16 at 15:00 Gentamicin Sulfate (Gentamicin) 50 ml @ 104 mls/hr Q48H IVPB Last administered on 11/23/16 16:22; Admin Dose 104 MLS/HR; Start 11/23/16 at 16:00 LEANDRO BELL MD Nov 23, 2016 20:34
[2016-11-23] MEDS: IMIPENEM-CILAST 500MG IV (PMX) 100 ML IVPB SCH (21:47)
--- NOTE | 2016-11-23 23:34 | CONS ---
Date/Time of Note Date/Time of Note DATE: 11/23/16 TIME: 23:33 Assessment/Plan Assessment/Plan Problems: (1) Decubitus ulcer, heel Qualifiers: Additional Assessment/Plan Heels must be touching AIR only; no surgery recommended at this time. Thank you very much for involving me in the care of this patient. Patient will be followed in-house. Consultation Date/Type/Reason Admit Date/Time Nov 21, 2016 at 23:08 Date of Consultation: Dec 24, 2016 Type of Consultation: Foot and ankle surgery Reason for Consultation Evaluation of b/l feet and heel ulcers. Referring Provider: SHAWNA CAROLINA MD Hx of Present Illness Thank you very much for involving me in the care of this patient. As you know, this is an 81 year old female patient with multiple medical problems including history of CVA with left sided hemiplegia, hypertension, right ICA occlusion, GERD, dysphagia, and is debilitated. Patient resides at [facility] where she has developed an ulcer on her left heel. I was consulted for evaluation and treatment. At the time of the visit, patient's daughter was present and most of the history was obtained from her and chart review. Patient apparently has been treated for her ulceration at [facility]. Patient is currently on antibiotics and there are no heel elevators on her feet As per history of present illness. Constitutional: poor po Gastrointestinal: other (dysphagia) Genitourinary: dysuria Neurologic: confusion Psychological: confusion Past Medical History As per history of present illness. Medical History: GERD, hypertension, urinary tract infection, other (cva) Past Surgical History As per history of present illness. Social History As per history of present illness. Alcohol Use: none Smoking Status: Current every day smoker Drug Use: none Exam/Review of Systems Vital Signs Vitals Vital Signs Date Time Temp Pulse Resp B/P Pulse Ox O2 Delivery O2 Flow Rate FiO2 11/23/16 21:21 2.0 11/23/16 20:23 87 11/23/16 20:00 Nasal Cannula 11/23/16 19:53 97.7 18 138/90 98 Intake and Output 11/22/16 11/22/16 11/23/16 15:00 23:00 07:00 Intake Total 0 ml 0 ml Output Total 600 ml 550 ml Balance -600 ml -550 ml Exam Patient is laying supine in bed. She appears to be debilitated and contracted. Patient is non-communicative. Patient's daughter is present in the room and reports on her history. Bilateral feet were examined. Left heel decubitus ulceration present. The ulcer appears to be dry with black eschar plug. Surrounding skin is hyperkeratotic and there is no erythema. No fluctuance noted. Mild malodor present. There is dry skin noted on the posterior aspect of the right heel as well. No other open wounds noted on bilateral feet. Dorsalis pedis and posterior tibial pulse is weakly palpable bilateral feet. Temperature gradient is increased bilaterally. Labs and imaging were reviewed. Results Result Diagram: 11/23/16 0600 11/23/16 0600 Results 24 hrs Laboratory Tests Test 11/23/16 06:00 Activated Partial Thromboplast Time 41.9 H Alanine Aminotransferase (ALT/SGPT) 18 Albumin 3.4 Albumin/Globulin Ratio 0.72 Alkaline Phosphatase 96 Anion Gap 21 H Aspartate Amino Transf (AST/SGOT) 32 B-Type Natriuretic Peptide 428 Basophils # 0.0 Basophils % 0.3 Blood Morphology Comment Blood Urea Nitrogen 70 #H Calcium Level 11.0 H Carbon Dioxide Level 21 Chloride Level 120 H Cholesterol Level 125 Cholesterol/HDL Ratio 5.0 Creatine Kinase 52 Creatine Kinase Index 8.6 Creatinine 1.17 H Creatinine Kinase MB (Mass) 4.49 H Direct Bilirubin 0.00 Eosinophils # 0.1 Eosinophils % 0.9 Free Thyroxine 1.46 Globulin 4.70 H Glucose Level 125 HDL Cholesterol 25 L Hematocrit 41.9 Hemoglobin 13.0 INR International Normalized Ratio 1.53 Indirect Bilirubin 0.2 LDL Cholesterol, Calculated 76 Lymphocytes # 2.3 Lymphocytes % 19.1 Magnesium Level 2.6 H Mean Corpuscular Hemoglobin 20.6 L Mean Corpuscular Hemoglobin Concent 31.0 L Mean Corpuscular Volume 66.5 L Mean Platelet Volume 9.5 Monocytes # 0.9 Monocytes % 7.1 Neutrophils # 8.9 H Neutrophils % 72.6 Nucleated Red Blood Cells # 0.0 Nucleated Red Blood Cells % 0.0 Phosphorus Level 3.4 Platelet Count 261 Potassium Level 4.7 Prothrombin Time 18.5 #H Prothrombin Time Ratio 1.4 Red Blood Count 6.30 H Red Cell Distribution Width 19.4 H Sodium Level 157 H Thyroid Stimulating Hormone (TSH) 2.800 Total Bilirubin 0.2 Total Protein 8.1 Triglycerides Level 119 Troponin I 0.093 White Blood Count 12.2 H Medications Medications Current Medications Dextrose/Sodium Chloride (D5-1/2ns) 1,000 ml @ 100 mls/hr Q10H IV Last administered on 11/23/16 21:48; Admin Dose 100 MLS/HR; Start 11/21/16 at 23:25 Ondansetron HCl (Zofran Inj) 4 mg Q6H PRN IV NAUSEA AND/OR VOMITING; Start at 23:30 Acetaminophen (Tylenol Tab) 650 mg Q6H PRN PO PAIN LEVEL 1-3 OR FEVER; Start at 23:30 Acetaminophen/ Hydrocodone Bitart ([place] (5/325)) 1 tab Q6H PRN PO PAIN LEVEL 4 -6; Start 11/21/16 at 23:30 Morphine Sulfate (morphine) 2 mg Q4H PRN IV PAIN LEVEL 7-10; Start 11/21/16 at 23:30 Docusate Sodium (Colace) 100 mg Q12H PRN PO CONSTIPATION; Start 11/21/16 at 23: 30 Pantoprazole (Protonix Iv) 40 mg DAILY@06 IV Last administered on 11/23/16 06: 07; Admin Dose 40 MG; Start 11/22/16 at 06:00 Aspirin (Aspirin) 81 mg DAILY PO ; Start 11/22/16 at 20:30 Aspirin (Aspirin) 300 mg DAILY IN Last administered on 11/23/16 13:00; Admin Dose 300 MG; Start 11/22/16 at 20:30 Metoprolol Tartrate 25 mg 25 mg BID GTB ; Start 11/23/16 at 21:00 Imipenem/ Cilastatin Sodium (Primaxin 500 Mg/ 100 ml (Pmx)) 100 ml @ 100 mls/ hr Q12 IVPB Last administered on 11/23/16 21:47; Admin Dose 100 MLS/HR; Start 11/23/16 at 21:00 Gentamicin Sulfate GENTAMICIN PER PHARMACY NOTE XX ; Start 11/23/16 at 15:00 Gentamicin Sulfate (Gentamicin) 50 ml @ 104 mls/hr Q48H IVPB Last administered on 11/23/16 16:22; Admin Dose 104 MLS/HR; Start 11/23/16 at 16:00 LEON FLYNN DPM Nov 23, 2016 23:34
[2016-11-24] VITALS (12 sets, daily range): BP systolic 131–164; BP diastolic 72–95; PULSE 101–132; RESP 18–20
[2016-11-24] MEDS: DEXTROSE 5%-0.45% NACL 1,000 ML IV SCH ×3 (05:40→23:40)
[2016-11-24] MEDS: PANTOPRAZOLE 40 MG INJ IV SCH (05:45)
[2016-11-24 07:05] LABS: BASOPHIL # 0.1 10^3/ul (0.0-0.1); BASOPHILS % 0.5 % (0.0-2.0); EOSINOPHILS # 0.1 10^3/ul (0.0-0.5); EOSINOPHILS % 1.1 % (0.0-7.0); HEMATOCRIT 38.6 % (37.0-47.0); HEMOGLOBIN 12.1 g/dl (12.0-16.0); LYMPHOCYTES # 1.8 10^3/ul (0.8-2.9); LYMPHOCYTES % 15.7 % (15.0-51.0); MEAN CORPUSCULAR HEMOGLOBIN 20.8 pg (29.0-33.0); MEAN CORPUSCULAR HGB CONC 31.4 g/dl (32.0-37.0); MEAN CORPUSCULAR VOLUME 66.3 fl (82.0-101.0); MEAN PLATELET VOLUME 9.2 fl (7.4-10.4); MONOCYTES % 9.4 % (0.0-11.0); NEUTROPHIL # 8.2 10^3/ul (1.6-7.5); NEUTROPHILS % 73.3 % (39.0-77.0); PLATELET COUNT 259 10^3/UL (140-440); RED BLOOD COUNT 5.82 10^6/ul (4.20-5.40); RED CELL DISTRIBUTION WIDTH 19.8 % (11.5-14.5); UNCORRECTED WBC 11.2 10^3/ul (4.8-10.8); WHITE BLOOD COUNT 11.2 10^3/ul (4.8-10.8)
[2016-11-24 07:11] LABS: CONDITION 1; LH ANALYZER COMMENTS 1
[2016-11-24 07:18] LABS: MAGNESIUM 2.2 mg/dl (1.7-2.5); PHOSPHORUS 3.4 mg/dl (2.5-4.9); POTASSIUM 4.2 mmol/L (3.5-5.1)
[2016-11-24 07:20] LABS: CREATININE 0.99 mg/dl (0.44-1.00)
[2016-11-24] MEDS: IMIPENEM-CILAST 500MG IV (PMX) 100 ML IVPB SCH ×2 (08:36→23:44)
[2016-11-24] MEDS: METOPROLOL 25 MG TAB GTB SCH ×2 (09:00→21:00)
[2016-11-24] MEDS: ASPIRIN 81 MG TAB PO SCH (09:00)
--- NOTE | 2016-11-24 10:45 | PN ---
DATE: SUBJECTIVE: Regular rate and rhythm strip, patient remains in sinus rhythm with sinus tachycardia w ith frequent PACs. Remains nonverbal. MEDICATIONS: Reviewed. PHYSICAL EXAMINATION: VITAL SIGNS: Temperature 97.6, heart rate of 100, blood pressure 130/90, respiration rate of 20, sa turating 98%. HEENT: Normocephalic, atraumatic. Elderly female. CARDIOVASCULAR: Regular rate and rhythm. Systolic murmur. PULMONARY: With mild wheezes heard. GASTROINTESTINAL: Soft, nontender. EXTREMITIES: With trivial edema. NEUROLOGIC: Opens her eyes, does not verbalize, appears to have left-sided weakness. LABORATORY: WBC of 7.2, hemoglobin 12.1, platelets 25. Sodium 156, potassium 4.2, BUN of 49, creat inine 0.99, glucose of 93. ASSESSMENT AND PLAN: 1. Mildly abnormal troponin consistent with false positive troponin. 2. Renal failure, currently improved. 3. Hypernatremia. 4. Dehydration. 5. Urinary tract infection. 6. Encephalopathy. 7. History of cerebrovascular accident. 8. Hypertension 9. Dysphagia. RECOMMENDATIONS: We will continue with the aspirin as tolerated. IV fluid will be continued. Anti biotic as per Dr. Bowers and associates. Dictated By: REBECA RADFORD/RAQUEL Conf#: [id number] DID#: [id number]
[2016-11-24] MEDS: ASPIRIN 300 MG SUPP PR SCH (11:06)
[2016-11-24] MEDS: FLUCONAZOLE 100 MG/NS (PMX) 50 ML IVPB SCH (16:00)
--- NOTE | 2016-11-24 16:36 | PN ---
DATE: 11/24/2016 SUBJECTIVE: The patient is seen and remains encephalopathic. Not much responsive to me. Lying on the right side. The patient failed swallowing evaluation. A video swallow to be done as discussed with the son. In the meantime, he agreed to proceed with NG tube feeding. In addition, per nursing staff, the patient has some vaginal discharge. OBJECTIVE: VITAL SIGNS: Temperature is 98.1, pulse 62 to 118, respirations 18, blood pressure 150/77, saturati on 100% on 2 liters. GENERAL: The patient again lethargic, pale. CARDIOVASCULAR: S1 and S2, tachycardic. LUNGS: Decreased bilaterally. ABDOMEN: Soft, nontender. EXTREMITIES: No clubbing, cyanosis, or edema. The patient with left heel ulcer. LABORATORIES: Arterial ultrasound showed suboptimal study, biphasic and monophasic flow throughout bilaterally consistent with aortoiliac disease. Correlation with CT angiogram of the abdominal aort a and runoff vessels should be considered. Venous ultrasound showed no evidence of DVT. There is a neurysm or pseudoaneurysm measuring 1.5 x 1.5 cm arising from the left common femoral vein posterior ly. MEDICATIONS: Include 1. Lopressor 25 b.i.d. 2. Imipenem 500 IV q. 12. 3. Gentamicin IV dose per pharmacy. 4. Aspirin 81 mg daily. 5. Protonix 40 IV daily. 6. Zofran p.r.n. 7. Tylenol p.r.n. 8. [place] p.r.n. 9. Morphine p.r.n. 10. Colace p.r.n. 11. Albuterol and Atrovent p.r.n. 12. D5 half normal at 100 mL an hour. ASSESSMENT AND PLAN: This is an 81-year-old female with history of cerebrovascular, very debilitated, dysphagia, hypertension, left hemiplegia, carotid stenosis who presented with ence phalopathy, dehydration, acute renal failure, urinary tract infection, and sepsis. 1. Respiratory. Continue O2 support. The patient is too risky for feeding. In the meantime, we w ill place an NG tube. Video swallow will be done. Again, the patient may have early aspiration pne umonia. 2. Cardiovascular. Eliquis is on hold as patient may need a G-tube placement. In the meantime, co ntinue Lovenox for DVT prophylaxis. The patient with tachycardia in sinus with PVCs. Continue beta sandip, aspirin. Cardiology is following. 3. Mal[address]. Place NG tube for feeding for now. I would recommend a G-tube feeding to maximiz e wound healing and safety. 4. History of elevated CEA. Awaiting stool occult blood and CEA level. 5. Acute renal failure and hypernatremia. Continue D5 half normal saline. We will reduce the rate to 50 mL an hour. Then we can do free water flushes via NG tube when it is placed. 6. Infectious disease. The patient with broad spectrum antibiotic with imipenem, vancomycin, and G entamicin. This patient has multiple drug resistant UTI. 7. Continue air mattress bed. Keep heel off pressure. Long-term prognosis is guarded. I believe the family is more optimistic than medical history sugges ts and medical condition. We will continue to monitor. The patient remains FULL CODE. Condition r emains guarded. We will follow. Dictated By: SHAWNA DONALD/RAQUEL Conf#: [id number] DID#: [id number]
[2016-11-24] MEDS ORDERED: LIDOCAINE 1% (MDV) 20 ML INJ SC ONE (20:30)
[2016-11-24] MEDS ORDERED: GENTAMICIN 80 MG/NS (PMX) 50 ML IVPB SCH (22:00)
[2016-11-25] VITALS (18 sets, daily range): BP systolic 91–130; BP diastolic 52–87; PULSE 91–124; RESP 17–19
--- NOTE | 2016-11-25 02:30 | RADRPT ---
PROCEDURE: XR Chest. CLINICAL INDICATION: For NG tube placement verification TECHNIQUE: Portable single view of the chest COMPARISON: 08/11/2016 FINDINGS: Nasogastric tube is seen in place with the tip and side-hole within the stomach. Heart size appears within normal limits. The aorta is ectatic and calcified. No acute infiltrate, pleural effusion, or overt congestive heart failure is seen. No bony abnormality. IMPRESSION: Nasogastric tube and side-hole within the stomach. Aortic atherosclerosis. RPTAT: [facility] Physician Yayo Date Time Electronically viewed and signed by Fe Mccann Physician on 11/25/2016 02:29 LE/
[2016-11-25] MEDS: PANTOPRAZOLE 40 MG INJ IV SCH (05:25)
[2016-11-25] MEDS: DEXTROSE 5%-0.45% NACL 1,000 ML IV SCH ×2 (05:28→11:55)
[2016-11-25 08:17] LABS: BASOPHILS % 0.2 % (0.0-2.0); EOSINOPHILS % 0.2 % (0.0-7.0); HEMATOCRIT 38.5 % (37.0-47.0); HEMOGLOBIN 12.1 g/dl (12.0-16.0); LYMPHOCYTES # 1.7 10^3/ul (0.8-2.9); LYMPHOCYTES % 14.7 % (15.0-51.0); MEAN CORPUSCULAR HEMOGLOBIN 20.8 pg (29.0-33.0); MEAN CORPUSCULAR HGB CONC 31.5 g/dl (32.0-37.0); MEAN CORPUSCULAR VOLUME 65.9 fl (82.0-101.0); MEAN PLATELET VOLUME 9.3 fl (7.4-10.4); MONOCYTE # 0.7 10^3/ul (0.3-0.9); NEUTROPHIL # 9.3 10^3/ul (1.6-7.5); NEUTROPHILS % 78.9 % (39.0-77.0); PLATELET COUNT 246 10^3/UL (140-440); RED BLOOD COUNT 5.84 10^6/ul (4.20-5.40); RED CELL DISTRIBUTION WIDTH 19.4 % (11.5-14.5); UNCORRECTED WBC 11.8 10^3/ul (4.8-10.8); WHITE BLOOD COUNT 11.8 10^3/ul (4.8-10.8)
[2016-11-25 08:24] LABS: CREATININE 1.05 mg/dl (0.44-1.00)
[2016-11-25 08:31] LABS: CONDITION 1; LH ANALYZER COMMENTS 1
[2016-11-25] MEDS: METOPROLOL 25 MG TAB GTB SCH (09:00)
[2016-11-25] MEDS: ASPIRIN 81 MG TAB PO SCH (09:00)
[2016-11-25] MEDS: ASPIRIN 300 MG SUPP PR SCH (09:19)
[2016-11-25] MEDS: IMIPENEM-CILAST 500MG IV (PMX) 100 ML IVPB SCH ×2 (09:19→20:27)
--- NOTE | 2016-11-25 10:37 | PN ---
DATE: 11/25/2016 CARDIOLOGY FOLLOWUP SUBJECTIVE: Discussed with the surgeons. The patient remains in sinus rhythm, sinus tachycardia. Remains nonverbal. MEDICATIONS: Reviewed as per medication reconciliation, personally reviewed. PHYSICAL EXAMINATION: VITAL SIGNS: Temperature 98.1, heart rate of 120, blood pressure 92/52, respiration rate of 17. HEENT: Normocephalic, atraumatic. Elderly female. Status post NG tube in place. CARDIOVASCULAR: Tachycardic. PULMONARY: No wheezes heard. GASTROINTESTINAL: Soft, no rebound or guarding. EXTREMITIES: No significant edema. NEUROLOGIC: Opens her eyes. Does not answer questions. LABORATORY: Chest x-ray done shows NG tube in the stomach. ASSESSMENT AND PLAN: 1. Mildly abnormal troponin consistent with false positive troponin. 2. Renal failure, improved now. 3. Severe hypernatremia. 4. Dehydration. 5. Tachycardia. 6. Urinary tract infection. 7. Encephalopathy with history of cerebrovascular accident. 8. History of hypertension, currently hypotensive. 7. Dysphagia, status post NG tube in place. RECOMMENDATIONS: Will continue IV fluids. Followup labs from the morning. Beta sandip as tolerat ed to be given. Aspirin will be continued. Dictated By: REBECA SOLIMAN MD AV/NTS Conf#: [id number] DID#: [id number] CC: SHAWNA CAROLINA MD;*End*
[2016-11-25] MEDS ORDERED: BARIUM SULFATE 135 ML (E-Z HD) PO ONE (10:57)
[2016-11-25 12:45] LABS: PHOSPHORUS 3.2 mg/dl (2.5-4.9)
[2016-11-25 12:46] LABS: MAGNESIUM 2.1 mg/dl (1.7-2.5)
--- NOTE | 2016-11-25 13:52 | RADRPT ---
PROCEDURE: Video-fluoroscopy swallowing study. CLINICAL INDICATION: Dysphagia. TECHNIQUE: Fluoroscopic guided video swallowing study was done in conjunction with the speech ther apist. The study was confined to the oral, pharyngeal, and cervical phases of the swallowing mechani sm. 2.9 minutes of fluoroscopy time was used. COMPARISON: No prior study is available for comparison. FINDINGS: There is no evidence of aspiration during the exam. IMPRESSION: 1. Normal study. No aspiration. 2. Please refer to the speech therapist's recommendations for future feedings. RPTAT: QQ .Marc Hernandez MD, MD Date Time Electronically viewed and signed by .Marc Hernandez MD, on 11/25/2016 13:51 .R/
--- NOTE | 2016-11-25 13:56 | RADRPT ---
PROCEDURE: Ultrasound guidance for placement of needle in right upper extremity vein. CLINICAL INDICATION: Venous access. TECHNIQUE: Limited sonography of the right upper extremity was performed. Ultrasound images were recorded and stored in the patient's medical record. COMPARISON: None. FINDINGS: The ultrasound images demonstrate a patent right upper extremity vein. The PICC line was inserted b y the PICC line nurse. IMPRESSION: 1. Ultrasound guidance for a needle placement in a right upper extremity vein. 2. The visualized right upper extremity vein is patent. RPTAT: QQ .Marc Hernandez MD, MD Date Time Electronically viewed and signed by .Marc Hernandez MD, MD on 11/25/2016 13:56 .R/
--- NOTE | 2016-11-25 13:57 | RADRPT ---
PROCEDURE: XR Chest. CLINICAL INDICATION: Check PICC line position. TECHNIQUE: Single frontal view. COMPARISON: 11/24/2016. FINDINGS: There is a right arm PICC line with the tip in the lower superior vena cava. The lungs are clear. The heart size is normal. There is calcification in the aorta consistent with atherosclerosis. There is no pleural effusion or pneumothorax. Contrast is present in the colon from a prior study. IMPRESSION: 1. Satisfactory position of right arm PICC line. 2. Atherosclerosis. 3. Clear lungs. RPTAT: QQ .Marc Hernandez MD, MD Date Time Electronically viewed and signed by .Marc Hernandez MD, on 11/25/2016 13:57 .R/
[2016-11-25] MEDS: FLUCONAZOLE 100 MG/NS (PMX) 50 ML IVPB SCH (15:31)
--- NOTE | 2016-11-25 15:41 | PN ---
DATE: The patient is seen, appears lethargic upon evaluation. The son is at bedside. Case was discussed. The patient is in no distress. The patient is status post a video swallow test. I was informed t hat she passed the test, but looking at her she looks quite weak and lethargic, so I doubt this a sa fety of feeding her. The patient's speech therapy notes stated overall the patient presented with mi ld to moderately delayed swallow. The patient can go on pureed and nectar thickened liquids by spoon , but the patient remains at high risk. The patient may not meet nutritional needs for the p.o. diet . Recommend a dietary consult. The patient will be a good candidate for PEG, for meeting nutrition needs and p.o. for oral if unable to get nutritional needs with a p.o. diet only. PHYSICAL EXAMINATION: VITAL SIGNS: The patient's temperature is 97.9, pulse is 64 to 109. Currently on the monitor the p atient is in sinus, but multiple PACs. Again, blood pressure is 125/78, saturation is 100% on 2 lit ers. GENERAL: The patient is frail, pale. CARDIOVASCULAR: S1 and S2. Irregular. LUNGS: Decreased bilaterally. ABDOMEN: Soft, thin. EXTREMITIES: No clubbing, cyanosis, or edema. Left heel necrotic tissue. LABORATORY: White count remains high at 11.8, hemoglobin 12.1, hematocrit 39, platelet count is 246 , neutrophils 79%, lymphocytes 15%. Chemistry: Sodium 133, potassium 4.0, chloride 121, bicarbonat e 21, BUN is 41, creatinine 1.05, glucose of 96. Calcium is high at 11. CEA is 4.3. UA did show positive nitrites, +2 leukocyte esterase. Urine cultures did show Pr oteus mirabilis, only sensitive to gentamicin and tobramycin. MEDICATIONS: Include the followin. Gentamicin, IV dose per pharmacy. 2. Diflucan 100 mg IV daily, was held because of the planned procedure. She has a PICC line placed also in the right upper extremity. Other medications include: 3. Metoprolol 25 b.i.d. 4. Imipenem 500 IV q.12. 5. Aspirin 81 daily. 6. Protonix 40 mg IV daily. 7. Zofran p.r.n. 8. Tylenol p.r.n. 9. Morphine p.r.n. 10. Colace p.r.n. 11. Breathing treatments p.r.n. 12. On D5 half-normal saline at 50 mL an hour. Chest x-ray done yesterday shows a NG tube in a side hole within the stomach. Aortic atherosclerosi s. Again, since then the NG tube was removed as the patient had a swallow evaluation. ASSESSMENT AND PLAN: This is an 81-year-old female with a history of cerebrovascular , very debilitated, dysphagia, hypertension, left hemiplegia and carotid stenosis, who presented wit h encephalopathy, dehydration, acute renal failure, UTI, sepsis, and left heel wound. 1. Respiratory. Continue O2 support. Continue aspiration precautions. 2. Cardiovascular. The patient with arrhythmia. Continue beta blockers. Aspirin for cardiac prot ection. 3. Malnutrition. Recommend G-tube feedings for nutritional support. In the meantime, also oral fe eding, as the patient passed a video swallow, but would do placement on a nectar pureed diet. 4. Anemia. H and H is stable. 5. Acute renal failure and hypernatremia, improving with D5 half-normal saline. 6. Infectious disease. The patient with a urinary tract infection and possible aspiration pneumoni a. Urinary tract infection is Proteus mirabilis. On gentamicin and also on imipenem and vancomycin. Try to disconnect antibiotics soon. 7. Continue wound care and avoid pressure to the left heel, keep off pressure. 8. Long-term prognosis is guarded. Patient remains FULL CODE. The case was discussed with the son at bedside. 9. Vaginal discharge. I started her on Diflucan. Long-term prognosis remains guarded. 10. The patient is with a BMI of 17.6, suggestive at least of moderate protein malnutrition. We wi ll check a prealbumin. We will follow. Dictated By: SHAWNA DONALD/RAQUEL Conf#: [id number] DID#: [id number]
[2016-11-25] MEDS: METOPROLOL 25 MG TAB PO SCH (18:49)
[2016-11-25] MEDS ORDERED: METOPROLOL 25 MG TAB PO SCH (21:00)
--- NOTE | 2016-11-25 23:45 | CONS ---
Date/Time of Note Date/Time of Note DATE: 11/25/16 TIME: 23:45 Consult Date/Type/Reason Admit Date/Time Nov 21, 2016 at 23:08 Initial Consult Date Subjective Patient was seen at bedside. Daughter is present. Daughter denies any overnight adverse events. Patient remains unresponsive to verbal command. She is in no acute distress laying supine in bed. Objective Vital Signs Date Time Temp Pulse Resp B/P Pulse Ox O2 Delivery O2 Flow Rate FiO2 11/25/16 22:12 98.5 91 18 124/75 100 Nasal Cannula 2.0 Intake and Output 11/24/16 11/24/16 11/25/16 15:00 23:00 07:00 Intake Total 1100 ml 0 ml 420 ml Output Total 400 ml 400 ml Balance 1100 ml -400 ml 20 ml Patient is laying supine in bed in no acute distress. Patient has heel protectors intact to both feet. Left heel decubitus ulceration is unchanged. There is no sign of infection. Pedal pulses remain palpable and temperature gradient continues to be increased. No other major changes noted on examination. Results/Medications Result Diagram: 11/25/16 0700 11/25/16 0700 Results 24 hrs Laboratory Tests Test 11/25/16 07:00 Anion Gap 15 Basophils # 0.0 Basophils % 0.2 Blood Morphology Comment Blood Urea Nitrogen 41 H Calcium Level 11.0 H Carbon Dioxide Level 21 Carcinoembryonic Antigen 4.3 Chloride Level 121 H Creatinine 1.05 H Eosinophils # 0.0 Eosinophils % 0.2 Glucose Level 96 Hematocrit 38.5 Hemoglobin 12.1 Lymphocytes # 1.7 Lymphocytes % 14.7 L Magnesium Level 2.1 Mean Corpuscular Hemoglobin 20.8 L Mean Corpuscular Hemoglobin Concent 31.5 L Mean Corpuscular Volume 65.9 L Mean Platelet Volume 9.3 Monocytes # 0.7 Monocytes % 6.0 Neutrophils # 9.3 H Neutrophils % 78.9 H Nucleated Red Blood Cells # 0.0 Nucleated Red Blood Cells % 0.0 Phosphorus Level 3.2 Platelet Count 246 Potassium Level 4.0 Red Blood Count 5.84 H Red Cell Distribution Width 19.4 H Sodium Level 153 H White Blood Count 11.8 H Medications Current Medications Dextrose/Sodium Chloride (D5-1/2ns) 1,000 ml @ 50 mls/hr Q20H IV Last administered on 11/24/16t 23:40; Admin Dose 50 MLS/HR; Start 11/21/16 at 23:25 Ondansetron HCl (Zofran Inj) 4 mg Q6H PRN IV NAUSEA AND/OR VOMITING; Start at 23:30 Acetaminophen (Tylenol Tab) 650 mg Q6H PRN PO PAIN LEVEL 1-3 OR FEVER; Start at 23:30 Acetaminophen/ Hydrocodone Bitart ([place] (5/325)) 1 tab Q6H PRN PO PAIN LEVEL 4 -6; Start 11/21/16 at 23:30 Morphine Sulfate (morphine) 2 mg Q4H PRN IV PAIN LEVEL 7-10; Start 11/21/16 at 23:30 Docusate Sodium (Colace) 100 mg Q12H PRN PO CONSTIPATION; Start 11/21/16 at 23: 30 Pantoprazole (Protonix Iv) 40 mg DAILY@06 IV Last administered on 11/25/16 05: 25; Admin Dose 40 MG; Start 11/22/16 at 06:00 Aspirin (Aspirin) 81 mg DAILY PO ; Start 11/22/16 at 20:30 Aspirin 300 mg 300 mg DAILY [place] Last administered on 11/25/16 09:19; Admin Dose 300 MG; Start 11/22/16 at 20:30 Imipenem/ Cilastatin Sodium (Primaxin 500 Mg/ 100 ml (Pmx)) 100 ml @ 100 mls/ hr Q12 IVPB Last administered on 11/25/16 20:27; Admin Dose 100 MLS/HR; Start 11/23/16 at 21:00 Gentamicin Sulfate GENTAMICIN PER PHARMACY NOTE XX ; Start 11/23/16 at 15:00 Fluconazole/ Sodium Chloride (Diflucan 100 Mg/ NS (Pmx)) 50 ml @ 50 mls/hr Q24H IVPB Last administered on 11/25/16 15:31; Admin Dose 50 MLS/HR; Start at 16:00 IV Flush 10 ml 10 ml PRN PRN IV IV PROTOCOL; Start 11/25/16 at 14:00 Gentamicin Sulfate (Gentamicin) 50 ml @ 100 mls/hr Q24H IVPB ; Start 11/26/16 at 01:00 Miscellaneous Information (*Rx Drug Level Order Reminder*) 1 ONCE ONCE XX ; Start 11/26/16 at 00:00; Stop 11/26/16 at 00:01 Miscellaneous Information (*Rx Drug Level Order Reminder*) 1 ONCE ONCE XX ; Start 11/26/16 at 01:00; Stop 11/26/16 at 01:01 Miscellaneous Information (*Rx Drug Level Order Reminder*) 1 ONCE ONCE XX ; Start 11/26/16 at 02:00; Stop 11/26/16 at 02:01 Metoprolol Tartrate (Lopressor) 25 mg BID PO Last administered on 11/25/16t 18: 49; Admin Dose 25 MG; Start 11/25/16 at 18:44 Assessment/Plan Problems: (1) Decubitus ulcer, heel (2) Altered level of consciousness Additional Assessment/Plan Continue heel elevators bilateral feet. Patient will be followed in-house. The ulceration on the heel is stable. Remains at risk for infection. LEON FLYNN DPM Nov 25, 2016 23:45
[2016-11-26] VITALS (14 sets, daily range): BP systolic 98–129; BP diastolic 67–78; PULSE 63–86; RESP 17–19
[2016-11-26] MEDS ORDERED: GENTAMICIN 80 MG/NS (PMX) 50 ML IVPB SCH ×2 (01:00→13:00)
[2016-11-26] MEDS: DEXTROSE 5%-0.45% NACL 1,000 ML IV SCH ×2 (04:03→07:55)
[2016-11-26] MEDS: PANTOPRAZOLE 40 MG INJ IV SCH (05:08)
--- NOTE | 2016-11-26 06:59 | CONS ---
Date/Time of Note Date/Time of Note DATE: 11/26/16 TIME: 06:58 Assessment/Plan Assessment/Plan Additional Assessment/Plan Additional Assessment/Plan ASSESSMENT AND PLAN: 1. Abnormal troponin, most likely false positive troponin secondary to renal failure. 2. Acute renal failure. 3. Acute hypernatremia. 4. Dehydration. 5. Urinary tract infection. 6. Encephalopathy, probably related to above. 7. History of cerebrovascular accident. 8. Hypertension. 9.dysphagia,barium swallow study negative for aspiration Plan dysphagia diet as per speech therapist. Consultation Date/Type/Reason Admit Date/Time Nov 21, 2016 at 23:08 Initial Consult Date 24 HR Interval Summary Constitutional: no complaints Exam/Review of Systems Vital Signs Vitals Vital Signs Date Time Temp Pulse Resp B/P Pulse Ox O2 Delivery O2 Flow Rate FiO2 11/26/16 06:08 2.0 11/26/16 06:00 97.4 86 18 129/78 95 Nasal Cannula Intake and Output 11/25/16 11/25/16 11/26/16 15:00 23:00 07:00 Intake Total 210 ml 600 ml Output Total 350 ml 460 ml Balance -140 ml 140 ml Exam Constitutional: alert, oriented, well developed Psych: nl mood/affect, no complaints Head: atraumatic, normocephalic Eyes: EOMI, PERRL, nl conjunctiva, nl lids, nl sclera ENMT: nl external ears & nose, nl lips & teeth, nl nasal mucosa & septum Neck: non-tender, supple Respiratory: clear to auscultation, normal air movement Cardiovascular: nl pulses, regular rate and rhythm Gastrointestinal: nl liver, spleen, non-tender, soft Musculoskeletal: nl extremities to inspection, nl gait and stance Extremities: normal pulses Neurological: VESSEL LINER II-XII intact, nl mental status, nl speech, nl strength Skin: nl turgor, No rash or lesions Lymph: nl lymph nodes Results Result Diagram: 11/25/16 0700 11/25/16 0700 Results 24 hrs Laboratory Tests Test 11/25/16 07:00 11/26/16 00:05 Anion Gap 15 Basophils # 0.0 Basophils % 0.2 Blood Morphology Comment Blood Urea Nitrogen 41 H Calcium Level 11.0 H Carbon Dioxide Level 21 Carcinoembryonic Antigen 4.3 Chloride Level 121 H Creatinine 1.05 H Eosinophils # 0.0 Eosinophils % 0.2 Glucose Level 96 Hematocrit 38.5 Hemoglobin 12.1 Lymphocytes # 1.7 Lymphocytes % 14.7 L Magnesium Level 2.1 Mean Corpuscular Hemoglobin 20.8 L Mean Corpuscular Hemoglobin Concent 31.5 L Mean Corpuscular Volume 65.9 L Mean Platelet Volume 9.3 Monocytes # 0.7 Monocytes % 6.0 Neutrophils # 9.3 H Neutrophils % 78.9 H Nucleated Red Blood Cells # 0.0 Nucleated Red Blood Cells % 0.0 Phosphorus Level 3.2 Platelet Count 246 Potassium Level 4.0 Red Blood Count 5.84 H Red Cell Distribution Width 19.4 H Sodium Level 153 H White Blood Count 11.8 H Gentamicin Level Trough 2.5 *H Medications Medications Current Medications Dextrose/Sodium Chloride (D5-1/2ns) 1,000 ml @ 50 mls/hr Q20H IV Last administered on 11/26/16 04:03; Admin Dose 50 MLS/HR; Start 11/21/16 at 23:25 Ondansetron HCl (Zofran Inj) 4 mg Q6H PRN IV NAUSEA AND/OR VOMITING; Start at 23:30 Acetaminophen (Tylenol Tab) 650 mg Q6H PRN PO PAIN LEVEL 1-3 OR FEVER; Start at 23:30 Acetaminophen/ Hydrocodone Bitart ([place] (5/325)) 1 tab Q6H PRN PO PAIN LEVEL 4 -6; Start 11/21/16 at 23:30 Morphine Sulfate (morphine) 2 mg Q4H PRN IV PAIN LEVEL 7-10; Start 11/21/16 at 23:30 Docusate Sodium (Colace) 100 mg Q12H PRN PO CONSTIPATION; Start 11/21/16 at 23: 30 Pantoprazole (Protonix Iv) 40 mg DAILY@06 IV Last administered on 11/26/16 05: 08; Admin Dose 40 MG; Start 11/22/16 at 06:00 Aspirin (Aspirin) 81 mg DAILY PO ; Start 11/22/16 at 20:30 Aspirin 300 mg 300 mg DAILY [place] Last administered on 11/25/16 09:19; Admin Dose 300 MG; Start 11/22/16 at 20:30 Imipenem/ Cilastatin Sodium (Primaxin 500 Mg/ 100 ml (Pmx)) 100 ml @ 100 mls/ hr Q12 IVPB Last administered on 11/25/16 20:27; Admin Dose 100 MLS/HR; Start 11/23/16 at 21:00 Gentamicin Sulfate GENTAMICIN PER PHARMACY NOTE XX ; Start 11/23/16 at 15:00 Fluconazole/ Sodium Chloride (Diflucan 100 Mg/ NS (Pmx)) 50 ml @ 50 mls/hr Q24H IVPB Last administered on 11/25/16 15:31; Admin Dose 50 MLS/HR; Start at 16:00 IV Flush (NS 10 ml) 10 ml PRN PRN IV IV PROTOCOL; Start 11/25/16 at 14:00 Metoprolol Tartrate 25 mg 25 mg BID PO Last administered on 11/25/16 18:49; Admin Dose 25 MG; Start 11/25/16 at 18:44 Gentamicin Sulfate (Gentamicin) 50 ml @ 100 mls/hr Q36H IVPB ; Start 11/26/16 at 13:00 LEANDRO BELL MD Nov 26, 2016 06:59
[2016-11-26 08:09] LABS: BASOPHILS % 0.1 % (0.0-2.0); EOSINOPHILS # 0.2 10^3/ul (0.0-0.5); EOSINOPHILS % 1.3 % (0.0-7.0); HEMATOCRIT 32.4 % (37.0-47.0); HEMOGLOBIN 10.2 g/dl (12.0-16.0); LYMPHOCYTES # 1.9 10^3/ul (0.8-2.9); LYMPHOCYTES % 14.5 % (15.0-51.0); MEAN CORPUSCULAR HEMOGLOBIN 20.9 pg (29.0-33.0); MEAN CORPUSCULAR HGB CONC 31.6 g/dl (32.0-37.0); MEAN CORPUSCULAR VOLUME 66.2 fl (82.0-101.0); MEAN PLATELET VOLUME 9.5 fl (7.4-10.4); MONOCYTES % 7.7 % (0.0-11.0); NEUTROPHIL # 10.3 10^3/ul (1.6-7.5); NEUTROPHILS % 76.4 % (39.0-77.0); PLATELET COUNT 195 10^3/UL (140-440); RED CELL DISTRIBUTION WIDTH 19.5 % (11.5-14.5); UNCORRECTED WBC 13.4 10^3/ul (4.8-10.8); WHITE BLOOD COUNT 13.4 10^3/ul (4.8-10.8)
[2016-11-26 08:24] LABS: ALBUMIN 2.6 g/dl (3.3-4.9)
[2016-11-26 08:25] LABS: POTASSIUM 3.5 mmol/L (3.5-5.1)
[2016-11-26 08:27] LABS: ALBUMIN/GLOBULIN RATIO 0.7; CREATININE 1.06 mg/dl (0.44-1.00); TOTAL PROTEIN 6.3 g/dl (6.1-8.1)
[2016-11-26 08:28] LABS: CALCIUM 10.2 mg/dl (8.4-10.2); MAGNESIUM 1.9 mg/dl (1.7-2.5)
[2016-11-26 08:31] LABS: CONDITION 1; LH ANALYZER COMMENTS 1; SUSPECT 1
[2016-11-26] MEDS: ASPIRIN 300 MG SUPP PR SCH (09:00)
[2016-11-26] MEDS: ASPIRIN 81 MG TAB PO SCH (09:25)
[2016-11-26] MEDS: METOPROLOL 25 MG TAB PO SCH ×2 (09:26→20:49)
[2016-11-26] MEDS: IMIPENEM-CILAST 500MG IV (PMX) 100 ML IVPB SCH (10:05)
[2016-11-26] MEDS ORDERED: SOD CHLORIDE 0.9% 100 ML ONE (11:23)
[2016-11-26] MEDS ORDERED: METOCLOPRAMIDE 5 MG TAB PO SCH (15:30)
--- NOTE | 2016-11-26 16:07 | PN ---
DATE: 11/26/2016 SUBJECTIVE: The patient is seen and remains lethargic. She does respond to verbal stimuli, but ear lier she attempted to eat with the son, but unfortunately she vomited. I noted extensive recommenda tion by speech therapy which were noted. Case discussed in detail with nursing staff. In addition, the son was concerned about epigastric pain. I told him that she is on Protonix. As I recall, I t hink she had a history of C. diff, so we will entertain that to see if that is maybe the issue. We will deescalate antibiotics. OBJECTIVE: VITAL SIGNS: Temperature is 97.9, pulse 72, respirations 17, blood pressure is 98/67, saturation 95 % on 2 liters. GENERAL: The patient is in no acute distress, appears comfortable, pale, nonresponsive. CARDIOVASCULAR: S1 and S2, irregular at times. LUNGS: Clear bilaterally. ABDOMEN: Soft, nontender. EXTREMITIES: No clubbing, cyanosis, or edema. She does have a left heel necrotic wound. LABORATORY DATA: White count is 13.4, hemoglobin 10.2, hematocrit 32, platelet count 195, neutrophi ls 76%, lymphocytes 15%. Chemistry: Sodium is 151, potassium 3.5, chloride 118, bicarbonate 21, BU N is 37, creatinine 1.06, glucose of 100. Prealbumin is low at 8.8, albumin 2.6. CEA is 4.3, twan l. Urine culture did show Proteus mirabilis sensitive to gentamicin and tobramycin intermediate to imipenem. MEDICATIONS: Include 1. Gentamicin. 2. Lopressor 25 b.i.d. 3. Diflucan daily. 4. Imipenem 500 IV q.12 which I just stopped. 5. Aspirin 81 daily. 6. Protonix 40 IV daily. 7. Zofran p.r.n. 8. Tylenol p.r.n. 9. [place] p.r.n. 10. Morphine p.r.n. 11. Colace p.r.n. 12. Breathing treatments p.r.n. 13. D5 half normal at 50 mL an hour until patient will tolerate diet. ASSESSMENT AND PLAN: This is an 81-year-old female with history of cerebrovascular a ccident, debilitated, dysphagia, hypertension, left hemiplegia, colic, stenosis who presented with e ncephalopathy, dehydration, acute renal failure, UTI, sepsis, and left heel wound. 1. Respiratory. Continue O2 support. Recent chest x-ray does not show any evidence of any infecti on. Continue oxygen support. 2. Cardiovascular. The patient with arrhythmia. Continue beta sandip. Continue aspirin for card iac protection. Continue Lovenox for DVT prophylaxis. 3. Malnutrition. We will obtain a dietitian consultation. We will start the patient on a calorie count. In the meantime, we will continue pureed diet as per request. She does not want right now a ny form of feedings. I will put on Reglan around the clock and observe. 4. Persistent leukocytosis with remote history of C. diff. We will obtain stool for C. difficile. The patient is with persistent leukocytosis, and we will start the patient on Flagyl and discontinu e imipenem. 5. Urinary tract infection. Continue gentamicin. 6. Dehydration. Remains on D5 half normal saline at 50 mL an hour. 7. The patient remains FULL CODE. Long-term prognosis remains guarded. DISCHARGE: 1. I placed her on Diflucan. 2. Moderate protein malnutrition with prealbumin of 8.8. I again recommend other forms of feedings . 3. Left heel wound. I appreciate podiatry consultation. Recommended elevation of the left heel ab ove the mattress. Case discussed with son in detail. We will follow. Dictated By: SHAWNA DONALD/RAQUEL Conf#: [id number] DID#: [id number]
[2016-11-26] MEDS: metroNIDAZOLE 500 MG/NS (PMX) 100 ML IVPB SCH ×2 (16:30→22:21)
--- NOTE | 2016-11-26 16:45 | PN ---
DATE: 11/26/2016 CARDIOLOGY FOLLOWUP SUBJECTIVE: Discussed with staff. No new cardiac events. The patient remains in sinus rhythm, sin us tachycardia with frequent PACs, nonverbal. MEDICATIONS: Reviewed. PHYSICAL EXAMINATION: VITAL SIGNS: Temperature 97.9, heart rate of 72, blood pressure 98/68, respiration rate of 18, sat urating 95%. HEENT: Normocephalic, atraumatic. Elderly female. Pupils are equal. CARDIOVASCULAR: Regular rate and rhythm. Systolic murmur. PULMONARY: With no wheezes anteriorly. GASTROINTESTINAL: Soft. No rebound or guarding. EXTREMITIES: Positive lower extremity edema. NEUROLOGIC: Awake. Does not answer my questions. LABORATORY: WBC of 13.4, hemoglobin 10.2, platelets of 195. Sodium 151, potassium 3.5, BUN of 37, creatinine of 1.006, glucose 100. ASSESSMENT AND PLAN: 1. Mildly abnormal troponin consistent with false positive troponin with normal ejection fraction. 2. Renal failure, improved. 3. Hypernatremia with dehydration. 4. Tachycardia secondary to above. 5. Urinary tract infection. 6. Encephalopathy with history of cerebrovascular accident. 7. History of hypertension. 8. Dysphagia. RECOMMENDATIONS: We will continue with the current cardiac care. Electrolytes including potassium and magnesium to be replaced as needed. Beta sandip was initiated to be given as tolerated. No fu rther cardiac workup is needed. Will follow up p.r.n. over the weekend. Dictated By: REBECA RADFORD/RAQUEL Conf#: [id number] DID#: [id number]
[2016-11-26] MEDS ORDERED: POTASSIUM CHLORIDE 20 MEQ in SOD CHLORIDE 0.9% 100 ML IVPB ONE (17:30)
[2016-11-26] MEDS: FLUCONAZOLE 100 MG/NS (PMX) 50 ML IVPB SCH (17:38)
[2016-11-26] MEDS: METOCLOPRAMIDE 10 MG INJ IV SCH (20:47)
[2016-11-27] VITALS (12 sets, daily range): BP systolic 112–157; BP diastolic 61–88; PULSE 63–84; RESP 15–20
[2016-11-27] MEDS: DEXTROSE 5%-0.45% NACL 1,000 ML IV SCH ×2 (03:55→23:55)
[2016-11-27] MEDS: metroNIDAZOLE 500 MG/NS (PMX) 100 ML IVPB SCH ×3 (06:16→21:43)
[2016-11-27] MEDS: PANTOPRAZOLE 40 MG INJ IV SCH (06:16)
[2016-11-27 06:31] LABS: BASOPHIL # 0.1 10^3/ul (0.0-0.1); BASOPHILS % 0.4 % (0.0-2.0); EOSINOPHILS # 0.1 10^3/ul (0.0-0.5); EOSINOPHILS % 0.5 % (0.0-7.0); HEMATOCRIT 35.3 % (37.0-47.0); HEMOGLOBIN 11.3 g/dl (12.0-16.0); LYMPHOCYTES # 2.9 10^3/ul (0.8-2.9); LYMPHOCYTES % 22.3 % (15.0-51.0); MEAN CORPUSCULAR HEMOGLOBIN 20.8 pg (29.0-33.0); MEAN CORPUSCULAR HGB CONC 31.8 g/dl (32.0-37.0); MEAN CORPUSCULAR VOLUME 65.3 fl (82.0-101.0); MEAN PLATELET VOLUME 9.5 fl (7.4-10.4); MONOCYTE # 1.1 10^3/ul (0.3-0.9); MONOCYTES % 8.7 % (0.0-11.0); NEUTROPHIL # 8.8 10^3/ul (1.6-7.5); NEUTROPHILS % 68.1 % (39.0-77.0); PLATELET COUNT 184 10^3/UL (140-440); RED BLOOD COUNT 5.41 10^6/ul (4.20-5.40); RED CELL DISTRIBUTION WIDTH 19.8 % (11.5-14.5); UNCORRECTED WBC 12.9 10^3/ul (4.8-10.8); WHITE BLOOD COUNT 12.9 10^3/ul (4.8-10.8)
[2016-11-27 06:35] LABS: CONDITION 1; LH ANALYZER COMMENTS 1; SUSPECT 1
[2016-11-27 06:55] LABS: POTASSIUM 4.6 mmol/L (3.5-5.1)
[2016-11-27 06:57] LABS: CREATININE 1.01 mg/dl (0.44-1.00)
[2016-11-27 06:58] LABS: CALCIUM 10.3 mg/dl (8.4-10.2)
[2016-11-27] MEDS: ASPIRIN 300 MG SUPP PR SCH (09:00)
[2016-11-27] MEDS: METOCLOPRAMIDE 10 MG INJ IV SCH ×3 (09:13→21:09)
[2016-11-27] MEDS: ENOXAPARIN 30 MG/0.3 ML SYG SC SCH (09:14)
[2016-11-27] MEDS: ASPIRIN 81 MG TAB PO SCH (09:15)
[2016-11-27] MEDS: METOPROLOL 25 MG TAB PO SCH ×2 (09:15→21:10)
[2016-11-27 10:12] LABS: PHOSPHORUS 2.5 mg/dl (2.5-4.9)
--- NOTE | 2016-11-27 14:55 | CONS ---
Date/Time of Note Date/Time of Note DATE: 11/27/16 TIME: 14:50 Assessment/Plan Assessment/Plan Chief Complaint/Hosp Course Impression: 1. Dysphagia 2. protein calorie malnutrition 3. Arrhythmia: stable 4. Persistent leukocytosis with remote history of C. diff. 5. Urinary tract infection. 6. Dehydration. REcommendation: 1. agree with starting Megace. 2. continue current dysphagia diet 3. Placed dietitian consult for calorie count and assess for adequate nutrition and hydration per speech therapy. 4. f/u stool for C. difficile. 5. continue current abx per pcp and ID Problems: Consultation Date/Type/Reason Admit Date/Time Nov 21, 2016 at 23:08 Initial Consult Date Type of Consultation: GI 24 HR Interval Summary Free Text/Dictation lethargic, discussed with nurse and no n/v, tolerates PO including medications Exam/Review of Systems Vital Signs Vitals Vital Signs Date Time Temp Pulse Resp B/P Pulse Ox O2 Delivery O2 Flow Rate FiO2 11/27/16 12:25 63 11/27/16 12:01 98.2 16 130/67 95 11/27/16 08:09 Nasal Cannula 2.0 Intake and Output 11/26/16 11/26/16 11/27/16 15:00 23:00 07:00 Intake Total 400 ml 0 ml Output Total 350 ml 300 ml Balance 50 ml -300 ml Exam Psych: confusion Head: atraumatic, normocephalic Eyes: EOMI, nl conjunctiva, nl lids, nl sclera ENMT: mucosa pink and moist, nl external ears & nose, nl lips & teeth, nl nasal mucosa & septum Neck: non-tender, supple Respiratory: clear to auscultation, normal air movement Cardiovascular: nl pulses, regular rate and rhythm Gastrointestinal: bowel sounds, nl liver, spleen, non-tender, soft Results Result Diagram: 11/27/16 0515 11/27/16 0515 Results 24 hrs Laboratory Tests Test 11/27/16 05:15 Anion Gap 14 Basophils # 0.1 Basophils % 0.4 Blood Morphology Comment Blood Urea Nitrogen 35 H Calcium Level 10.3 H Carbon Dioxide Level 22 Chloride Level 117 H Creatinine 1.01 H Eosinophils # 0.1 Eosinophils % 0.5 Glucose Level 97 Hematocrit 35.3 L Hemoglobin 11.3 L Lymphocytes # 2.9 Lymphocytes % 22.3 Magnesium Level 2.0 Mean Corpuscular Hemoglobin 20.8 L Mean Corpuscular Hemoglobin Concent 31.8 L Mean Corpuscular Volume 65.3 L Mean Platelet Volume 9.5 Monocytes # 1.1 H Monocytes % 8.7 Neutrophils # 8.8 H Neutrophils % 68.1 Nucleated Red Blood Cells # 0.0 Nucleated Red Blood Cells % 0.0 Phosphorus Level 2.5 Platelet Count 184 Potassium Level 4.6 Red Blood Count 5.41 H Red Cell Distribution Width 19.8 H Sodium Level 148 H White Blood Count 12.9 H Medications Medications Current Medications Dextrose/Sodium Chloride (D5-1/2ns) 1,000 ml @ 50 mls/hr Q20H IV Last administered on 11/26/16 04:03; Admin Dose 50 MLS/HR; Start 11/21/16 at 23:25 Ondansetron HCl (Zofran Inj) 4 mg Q6H PRN IV NAUSEA AND/OR VOMITING; Start at 23:30 Acetaminophen (Tylenol Tab) 650 mg Q6H PRN PO PAIN LEVEL 1-3 OR FEVER; Start at 23:30 Acetaminophen/ Hydrocodone Bitart ([place] (5/325)) 1 tab Q6H PRN PO PAIN LEVEL 4 -6; Start 11/21/16 at 23:30 Morphine Sulfate (morphine) 2 mg Q4H PRN IV PAIN LEVEL 7-10; Start 11/21/16 at 23:30 Docusate Sodium (Colace) 100 mg Q12H PRN PO CONSTIPATION; Start 11/21/16 at 23: 30 Pantoprazole (Protonix Iv) 40 mg DAILY@06 IV Last administered on 11/27/16 06: 16; Admin Dose 40 MG; Start 11/22/16 at 06:00 Aspirin (Aspirin) 81 mg DAILY PO Last administered on 11/27/16 09:15; Admin Dose 81 MG; Start 11/22/16 at 20:30 Aspirin (Aspirin) 300 mg DAILY [place] Last administered on 11/25/16 09:19; Admin Dose 300 MG; Start 11/22/16 at 20:30 Gentamicin Sulfate GENTAMICIN PER PHARMACY NOTE XX ; Start 11/23/16 at 15:00 Fluconazole/ Sodium Chloride (Diflucan 100 Mg/ NS (Pmx)) 50 ml @ 50 mls/hr Q24H IVPB Last administered on 11/26/16 17:38; Admin Dose 50 MLS/HR; Start at 16:00 IV Flush (NS 10 ml) 10 ml PRN PRN IV IV PROTOCOL; Start 11/25/16 at 14:00 Metoprolol Tartrate 25 mg 25 mg BID PO Last administered on 11/27/16 09:15; Admin Dose 25 MG; Start 11/25/16 at 18:44 Metronidazole (Flagyl 500 Mg (Pmx)) 100 ml @ 100 mls/hr Q8 IVPB Last administered on 11/27/16 14:36; Admin Dose 100 MLS/HR; Start 11/26/16 at 15:00 Enoxaparin Sodium (Lovenox) 30 mg DAILY [place] Last administered on 11/27/16 09:14 ; Admin Dose 30 MG; Start 11/27/16 at 09:00 Metoclopramide HCl 5 mg 5 mg TID IV Last administered on 11/27/16 14:36; Admin Dose 5 MG; Start 11/26/16 at 21:00 Gentamicin Sulfate (Gentamicin) 50 ml @ 100 mls/hr Q36H IVPB ; Start 11/28/16 at 03:00 Megestrol Acetate (Megace Susp) 400 mg BID PO ; Start 11/27/16 at 14:00 RICO LATIF MD Nov 27, 2016 14:55
[2016-11-27] MEDS: FLUCONAZOLE 100 MG/NS (PMX) 50 ML IVPB SCH (15:06)
[2016-11-27] MEDS: MEGESTROL (40 MG/ML) 10ML CUP PO SCH ×2 (15:06→21:09)
--- NOTE | 2016-11-27 18:04 | PN ---
DATE: 11/27/2016 SUBJECTIVE: Patient is seen. The patient is awake, alert, does not speak much, does not seem to ea t much. She has a pureed diet next to her bed, there is probably she ate a few spoons. Noted xavier acosta recommendations, as the patient most likely cannot meet ____calorie needs, as the patient is al ready malnourished. However, tried to convince the family to proceed with G-tube feeding as the pat ient remains FULL CODE and family wants everything done. I also consulted Dr. Putnam, the GI specia list for G-tube placement. In the meantime, we do not have a consent. PHYSICAL EXAMINATION: VITAL SIGNS: Temperature 98.2, pulse 62, respirations 18, blood pressure 130/67, saturation 95% on 2 liters. GENERAL: The patient remains frail, pale. HEENT: Decreased dentition. CARDIOVASCULAR: S1 and S2. LUNGS: Decreased bilaterally with poor inspiratory effort. ABDOMEN: Soft, nontender. EXTREMITIES: No clubbing, cyanosis, or edema. Left heel wound. Overall very debilitated. LABORATORY DATA: Done today: White count is slightly better at 12.9, hemoglobin 11.2, hematocrit 3 5, platelet count is 184, neutrophils 68%, lymphocytes 22%. Chemistry: Sodium is 148, potassium 4. 6, chloride 117, bicarbonate 22, BUN is 35, creatinine 1.01 and glucose of 97, calcium 10.3. UA was positive on admission, which shows Proteus mirabilis sensitive both to gentamicin and tobramycin. MRSA of the nares was negative. CURRENT MEDICATIONS: Include: 1. Gentamicin, dosed per pharmacy. 2. Lovenox 30 mg subcutaneous daily. 3. Reglan 5 mg t.i.d. 4. Flagyl 500 q.8 hours. 5. Lopressor 25 b.i.d. 6. Diflucan 100 mg daily. 7. Aspirin 81 mg daily. 8. Protonix 40 mg IV daily. 9. Zofran p.r.n. 10. Tylenol p.r.n. 11. [place] p.r.n. 12. Morphine p.r.n. 13. Colace p.r.n. 14. Albuterol and Atrovent every 2 hours p.r.n. 15. Remains on D5 half normal saline at 50 mL an hour. ASSESSMENT AND PLAN: This is a very unfortunate 81-year-old female with history of c erebrovascular accident, debilitated, dysphagia, hypertension, left hemiplegia, carotid stenosis who presented with encephalopathy, dehydration, acute renal failure, urinary tract infection, sepsis, a nd left heel wound. 1. Respiratory. Continue O2 support. Always I am concerned about dysphagia. The patient did pass a video swallow for now. Continue O2 support and will monitor; breathing treatments are being prov ided as needed. 2. Cardiovascular. Patient with history of arrhythmia. Continue beta blockers. Continue aspirin and Lovenox for deep venous thrombosis prophylaxis. 3. Malnutrition. Recommended the G-tube placement. Will proceed when family agrees. In the meant lou[place], the patient remains on a pureed diet. I will add Megace to see if that may help her appetite. Continue calorie count. Patient with prealbumin of 8.8, overall, suggestive of moderate to almost severe protein malnutrition. 4. Dehydration with hypernatremia, improving with D5 half normal saline, continue fluid hydration, low dose. 5. The patient is FULL CODE. 6. Urinary tract infection. The patient is on gentamicin, empirically I started her on Flagyl. 7. Has previous history of Clostridium difficile. Would follow up with Clostridium difficile resu lts. White count is slightly better. 8. Left heel wound. Continue offloading. Keep left lower extremity elevated. 9. Overall, long-term prognosis is not good. I believe the family is more optimistic. Continue Re glan prior to meals and observe. Make sure the patient is comfortable at all times. We will follow . Dictated By: SHAWNA DONALD/RAQUEL Conf#: [id number] DID#: [id number]
[2016-11-28] VITALS (12 sets, daily range): BP systolic 97–138; BP diastolic 63–86; PULSE 69–88; RESP 15–18
[2016-11-28] MEDS: GENTAMICIN 80 MG/NS (PMX) 50 ML IVPB SCH (03:09)
[2016-11-28] MEDS: PANTOPRAZOLE 40 MG INJ IV SCH (05:51)
[2016-11-28] MEDS: metroNIDAZOLE 500 MG/NS (PMX) 100 ML IVPB SCH ×3 (05:52→22:19)
[2016-11-28 08:41] LABS: BASOPHIL # 0.1 10^3/ul (0.0-0.1); BASOPHILS % 0.4 % (0.0-2.0); EOSINOPHILS % 0.3 % (0.0-7.0); HEMOGLOBIN 10.1 g/dl (12.0-16.0); LYMPHOCYTES % 21.1 % (15.0-51.0); MEAN CORPUSCULAR HEMOGLOBIN 20.9 pg (29.0-33.0); MEAN CORPUSCULAR HGB CONC 32.7 g/dl (32.0-37.0); MEAN CORPUSCULAR VOLUME 63.9 fl (82.0-101.0); MEAN PLATELET VOLUME 9.4 fl (7.4-10.4); MONOCYTE # 1.3 10^3/ul (0.3-0.9); MONOCYTES % 9.6 % (0.0-11.0); NEUTROPHIL # 9.6 10^3/ul (1.6-7.5); NEUTROPHILS % 68.6 % (39.0-77.0); PLATELET COUNT 192 10^3/UL (140-440); RED BLOOD COUNT 4.84 10^6/ul (4.20-5.40); RED CELL DISTRIBUTION WIDTH 19.9 % (11.5-14.5)
--- NOTE | 2016-11-28 08:59 | CONS ---
Date/Time of Note Date/Time of Note DATE: 11/28/16 TIME: 08:55 Assessment/Plan Assessment/Plan Chief Complaint/Hosp Course Impression: 1. Dysphagia 2. protein calorie malnutrition 3. Arrhythmia: stable 4. Persistent leukocytosis with remote history of C. diff. 5. Urinary tract infection. 6. Dehydration. REcommendation: 1. continue Megace to stimulate appetite 2. continue current dysphagia diet 3. f/u calorie count 4. f/u stool for C. difficile. 5. continue current abx per pcp and ID 6. If calorie count documents pt not eating enough to meet nutrition requirement , will need to place PEG. Awaiting consent for PEG. Family not at bedside and will sign out to Dr. Putnam to d/w family regarding PEG. Problems: Consultation Date/Type/Reason Admit Date/Time Nov 21, 2016 at 23:08 Type of Consultation: GI 24 HR Interval Summary Free Text/Dictation patient very lethargic, not eating much, nutrition eval noted, I&O -800 yesterday Exam/Review of Systems Vital Signs Vitals Vital Signs Date Time Temp Pulse Resp B/P Pulse Ox O2 Delivery O2 Flow Rate FiO2 11/28/16 08:09 98.9 73 18 123/74 98 11/28/16 06:31 2.0 11/27/16 20:38 Nasal Cannula Intake and Output 11/27/16 11/27/16 11/28/16 15:00 23:00 07:00 Intake Total 400 ml 150 ml Output Total 550 ml 800 ml Balance -150 ml -650 ml Exam Constitutional: frail Psych: nl mood/affect, no complaints Head: atraumatic, normocephalic Eyes: EOMI, nl conjunctiva, nl lids, nl sclera ENMT: mucosa pink and moist, nl external ears & nose, nl lips & teeth, nl nasal mucosa & septum Neck: non-tender, supple Respiratory: clear to auscultation, normal air movement Cardiovascular: nl pulses, regular rate and rhythm Gastrointestinal: bowel sounds, non-tender, soft Results Result Diagram: 11/27/16 0515 11/27/16 0515 Medications Medications Current Medications Dextrose/Sodium Chloride (D5-1/2ns) 1,000 ml @ 50 mls/hr Q20H IV Last administered on 11/26/16t 04:03; Admin Dose 50 MLS/HR; Start 11/21/16 at 23:25 Ondansetron HCl (Zofran Inj) 4 mg Q6H PRN IV NAUSEA AND/OR VOMITING; Start at 23:30 Acetaminophen (Tylenol Tab) 650 mg Q6H PRN PO PAIN LEVEL 1-3 OR FEVER; Start at 23:30 Acetaminophen/ Hydrocodone Bitart ([place] (5/325)) 1 tab Q6H PRN PO PAIN LEVEL 4 -6; Start 11/21/16 at 23:30 Morphine Sulfate (morphine) 2 mg Q4H PRN IV PAIN LEVEL 7-10; Start 11/21/16 at 23:30 Docusate Sodium (Colace) 100 mg Q12H PRN PO CONSTIPATION; Start 11/21/16 at 23: 30 Pantoprazole (Protonix Iv) 40 mg DAILY@06 IV Last administered on 11/28/16 05: 51; Admin Dose 40 MG; Start 11/22/16 at 06:00 Aspirin (Aspirin) 81 mg DAILY PO Last administered on 11/27/16 09:15; Admin Dose 81 MG; Start 11/22/16 at 20:30 Aspirin (Aspirin) 300 mg DAILY CO Last administered on 11/25/16 09:19; Admin Dose 300 MG; Start 11/22/16 at 20:30 Gentamicin Sulfate GENTAMICIN PER PHARMACY NOTE XX ; Start 11/23/16 at 15:00 Fluconazole/ Sodium Chloride (Diflucan 100 Mg/ NS (Pmx)) 50 ml @ 50 mls/hr Q24H IVPB Last administered on 11/27/16 15:06; Admin Dose 50 MLS/HR; Start at 16:00 IV Flush (NS 10 ml) 10 ml PRN PRN IV IV PROTOCOL; Start 11/25/16 at 14:00 Metoprolol Tartrate 25 mg 25 mg BID PO Last administered on 11/27/16 21:10; Admin Dose 25 MG; Start 11/25/16 at 18:44 Metronidazole (Flagyl 500 Mg (Pmx)) 100 ml @ 100 mls/hr Q8 IVPB Last administered on 11/28/16 05:52; Admin Dose 100 MLS/HR; Start 11/26/16 at 15:00 Enoxaparin Sodium (Lovenox) 30 mg DAILY SC Last administered on 11/27/16 09:14 ; Admin Dose 30 MG; Start 11/27/16 at 09:00 Metoclopramide HCl 5 mg 5 mg TID IV Last administered on 11/27/16 21:09; Admin Dose 5 MG; Start 11/26/16 at 21:00 Gentamicin Sulfate (Gentamicin) 50 ml @ 100 mls/hr Q36H IVPB Last administered on 11/28/16 03:09; Admin Dose 100 MLS/HR; Start 11/28/16 at 03:00 Megestrol Acetate (Megace Susp) 400 mg BID PO Last administered on 11/27/16 21 :09; Admin Dose 400 MG; Start 11/27/16 at 14:00 RICO LATIF MD Nov 28, 2016 08:59
[2016-11-28] MEDS: ASPIRIN 300 MG SUPP PR SCH (09:00)
[2016-11-28 09:02] LABS: CONDITION 1; LH ANALYZER COMMENTS 1; SUSPECT 1
[2016-11-28 09:13] LABS: POTASSIUM 3.6 mmol/L (3.5-5.1)
[2016-11-28 09:15] LABS: CREATININE 0.81 mg/dl (0.44-1.00)
[2016-11-28 09:16] LABS: CALCIUM 9.8 mg/dl (8.4-10.2)
[2016-11-28 09:17] LABS: MAGNESIUM 1.7 mg/dl (1.7-2.5); PHOSPHORUS 2.5 mg/dl (2.5-4.9)
[2016-11-28] MEDS: METOCLOPRAMIDE 10 MG INJ IV SCH ×3 (10:12→20:39)
[2016-11-28] MEDS: MEGESTROL (40 MG/ML) 10ML CUP PO SCH ×2 (10:15→20:50)
[2016-11-28] MEDS: ASPIRIN 81 MG TAB PO SCH (10:15)
[2016-11-28] MEDS: METOPROLOL 25 MG TAB PO SCH ×2 (10:15→20:40)
[2016-11-28] MEDS: ENOXAPARIN 30 MG/0.3 ML SYG SC SCH (10:17)
[2016-11-28] MEDS: DEXTROSE 5%-0.45% NACL 1,000 ML IV SCH (13:10)
[2016-11-28] MEDS: FLUCONAZOLE 100 MG/NS (PMX) 50 ML IVPB SCH (16:30)
--- NOTE | 2016-11-28 19:10 | PN ---
DATE: 11/28/2016 SUBJECTIVE: The patient seen. She is still on a calorie count. Since the son is at bedside he is feeding her. I did advise them still to proceed with G-tube placement. Family still has to make a decision. Clinically improving as she is tolerating her diet with her son. ____ she does have sign ificant moderate to severe protein malnutrition with a low BMI and low prealbumin. PHYSICAL EXAMINATION: VITAL SIGNS: T-max is 99, temperature 98.7, pulse 70, respirations 16, blood pressure 97/63, satura tion is 98% on 2 liters. GENERAL: The patient is in no acute distress, frail, pale. HEENT: Temporal wasting. CARDIOVASCULAR: S1 and S2, regular rate and rhythm. LUNGS: Decreased bilaterally. ABDOMEN: Soft, distended. EXTREMITIES: No clubbing, cyanosis, or edema. Very debilitated. She has a left heel wound. LABORATORY DATA: White count increased to 14, hemoglobin 10.1, hematocrit 31, platelet count is 192 , neutrophils 69%, lymphocytes 21%. Chemistry: Sodium 143, potassium 3.6, chloride 112, bicarbonat e 24, BUN is 25, creatinine 0.81 and glucose of 87. Kidney function has improved. UA did show Prot eus mirabilis sensitive to tobramycin and gentamicin. MEDICATIONS: Include: 1. Gentamicin IV dose per pharmacy. 2. Megace 400 b.i.d. 3. Lovenox 30 mg subcutaneous daily. 4. Reglan 5 mg IV t.i.d. 5. Flagyl 500 q.8 IV. 6. Lopressor 25 b.i.d. 7. Diflucan q.24 hours. 8. Aspirin 81 daily. 9. Protonix 40 mg IV daily. 10. Zofran p.r.n. 11. Tylenol p.r.n. 12. [place] p.r.n. 13. Albuterol and Atrovent p.r.n. 14. D5 half normal at 50 mL an hour. ASSESSMENT AND PLAN: This is an 81-year-old female with history of cerebrovascular, debilitated, dysphagia, hypertension, left hemiplegia, carotid stenosis, who presented with encephal opathy, dehydration, acute renal failure, urinary tract infection, left heel wound. 1. Respiratory. Continue O2 support. Continue aspiration precautions, remains on a pureed diet. 2. Cardiovascular: Patient with history of arrhythmia. Continue beta blockers. Continue Lovenox for deep venous thrombosis prophylaxis. 3. Acute renal failure and hypernatremia, resolving with fluid hydration. Hep-Lock IV fluids. 4. Malnutrition with presentation initially with severe dehydration, would recommend feeding tube f or fluids and nutrition. 5. The patient is FULL CODE. 6. Urinary tract infection. Continue IV gentamicin. White count remains elevated. 7. Previous history of Clostridium difficile. We will follow up with CT results. Continue Flagyl IV. 8. Let hip wound, continue offloading, keep the left heel off pressure. 9. Long-term prognosis remains guarded. Try to keep the patient comfortable at all times. Case di scussed in detail with the son at bedside, remains on Reglan IV t.i.d. Will taper that off as well. We will follow. Dictated By: SHAWNA DONALD/RAQUEL Conf#: [id number] DID#: [id number]
[2016-11-29] VITALS (13 sets, daily range): BP systolic 99–146; BP diastolic 64–78; PULSE 79–100; RESP 17–20
[2016-11-29] MEDS: metroNIDAZOLE 500 MG/NS (PMX) 100 ML IVPB SCH ×3 (06:23→21:54)
[2016-11-29] MEDS: PANTOPRAZOLE 40 MG INJ IV SCH (06:23)
[2016-11-29 08:43] LABS: BASOPHILS % 0.3 % (0.0-2.0); EOSINOPHILS # 0.1 10^3/ul (0.0-0.5); EOSINOPHILS % 0.6 % (0.0-7.0); HEMATOCRIT 29.8 % (37.0-47.0); HEMOGLOBIN 9.8 g/dl (12.0-16.0); LYMPHOCYTES # 2.9 10^3/ul (0.8-2.9); LYMPHOCYTES % 22.8 % (15.0-51.0); MEAN CORPUSCULAR HEMOGLOBIN 20.9 pg (29.0-33.0); MEAN CORPUSCULAR HGB CONC 32.8 g/dl (32.0-37.0); MEAN CORPUSCULAR VOLUME 63.7 fl (82.0-101.0); MEAN PLATELET VOLUME 9.6 fl (7.4-10.4); MONOCYTE # 1.3 10^3/ul (0.3-0.9); MONOCYTES % 10.2 % (0.0-11.0); NEUTROPHIL # 8.4 10^3/ul (1.6-7.5); NEUTROPHILS % 66.1 % (39.0-77.0); PLATELET COUNT 186 10^3/UL (140-440); RED BLOOD COUNT 4.68 10^6/ul (4.20-5.40); RED CELL DISTRIBUTION WIDTH 18.9 % (11.5-14.5); UNCORRECTED WBC 12.7 10^3/ul (4.8-10.8); WHITE BLOOD COUNT 12.7 10^3/ul (4.8-10.8)
[2016-11-29 08:46] LABS: CONDITION 1; LH ANALYZER COMMENTS 1; SUSPECT 1
[2016-11-29 08:50] LABS: POTASSIUM 3.3 mmol/L (3.5-5.1)
[2016-11-29 08:53] LABS: CALCIUM 9.5 mg/dl (8.4-10.2); CREATININE 0.89 mg/dl (0.44-1.00); MAGNESIUM 1.6 mg/dl (1.7-2.5); PHOSPHORUS 2.3 mg/dl (2.5-4.9)
[2016-11-29] MEDS: ASPIRIN 300 MG SUPP PR SCH (09:00)
[2016-11-29] MEDS: METOPROLOL 25 MG TAB PO SCH ×2 (09:00→20:51)
[2016-11-29] MEDS: MEGESTROL (40 MG/ML) 10ML CUP PO SCH ×2 (09:39→20:51)
[2016-11-29] MEDS: METOCLOPRAMIDE 10 MG INJ IV SCH ×3 (09:40→20:50)
[2016-11-29] MEDS: ASPIRIN 81 MG TAB PO SCH (09:40)
[2016-11-29] MEDS: ENOXAPARIN 30 MG/0.3 ML SYG SC SCH (09:45)
[2016-11-29] MEDS ORDERED: MAGNESIUM SULFATE 2 GM/50 ML 50 ML IVPB ONE (13:30)
[2016-11-29] MEDS ORDERED: POTASSIUM PHOSPHATE 20 MEQ in SOD CHLORIDE 0.9% 250 ML IVPB ONE (14:30)
--- NOTE | 2016-11-29 15:38 | CONS ---
Date/Time of Note Date/Time of Note DATE: 11/29/16 TIME: 15:37 Assessment/Plan Assessment/Plan Additional Assessment/Plan Impression: 1. Dysphagia 2. protein calorie malnutrition 3. Arrhythmia: stable 4. Persistent leukocytosis with remote history of C. diff. 5. Urinary tract infection. 6. Dehydration. REcommendation: 1. continue Megace to stimulate appetite 2. continue current dysphagia diet 3. f/u calorie count 4. f/u stool for C. difficile. 5. continue current abx per pcp and ID 6. If calorie count documents pt not eating enough to meet nutrition requirement , will need to place PEG. Awaiting consent for PEG. son has agreed for PEG Consultation Date/Type/Reason Admit Date/Time Nov 21, 2016 at 23:08 Type of Consultation: GI 24 HR Interval Summary Constitutional: no complaints Exam/Review of Systems Vital Signs Vitals Vital Signs Date Time Temp Pulse Resp B/P Pulse Ox O2 Delivery O2 Flow Rate FiO2 11/29/16 12:05 79 11/29/16 12:00 98.7 18 137/71 100 Nasal Cannula 2.0 Intake and Output 11/28/16 11/28/16 11/29/16 15:00 23:00 07:00 Intake Total 980 ml Output Total 400 ml 400 ml Balance 580 ml -400 ml Exam Constitutional: alert, oriented, well developed Psych: nl mood/affect, no complaints Head: atraumatic, normocephalic Eyes: EOMI, PERRL, nl conjunctiva, nl lids, nl sclera ENMT: nl external ears & nose, nl lips & teeth, nl nasal mucosa & septum Neck: non-tender, supple Respiratory: clear to auscultation, normal air movement Cardiovascular: nl pulses, regular rate and rhythm Gastrointestinal: nl liver, spleen, non-tender, soft Musculoskeletal: nl extremities to inspection, nl gait and stance Extremities: normal pulses Neurological: PROGRESS WORKER II-XII intact, nl mental status, nl speech, nl strength Skin: nl turgor, No rash or lesions Lymph: nl lymph nodes Results Result Diagram: 11/29/16 0745 11/29/16 0745 Results 24 hrs Laboratory Tests Test 11/29/16 07:45 11/29/16 13:45 Anion Gap 12 Basophils # 0.0 Basophils % 0.3 Blood Morphology Comment Blood Urea Nitrogen 22 H Calcium Level 9.5 Carbon Dioxide Level 23 Chloride Level 112 H Creatinine 0.89 Eosinophils # 0.1 Eosinophils % 0.6 Glucose Level 85 Hematocrit 29.8 L Hemoglobin 9.8 L Lymphocytes # 2.9 Lymphocytes % 22.8 Magnesium Level 1.6 L Mean Corpuscular Hemoglobin 20.9 L Mean Corpuscular Hemoglobin Concent 32.8 Mean Corpuscular Volume 63.7 L Mean Platelet Volume 9.6 Monocytes # 1.3 H Monocytes % 10.2 Neutrophils # 8.4 H Neutrophils % 66.1 Nucleated Red Blood Cells # 0.0 Nucleated Red Blood Cells % 0.0 Phosphorus Level 2.3 L Platelet Count 186 Potassium Level 3.3 L Red Blood Count 4.68 Red Cell Distribution Width 18.9 H Sodium Level 144 White Blood Count 12.7 H Gentamicin Level Trough 1.2 Medications Medications Current Medications Ondansetron HCl (Zofran Inj) 4 mg Q6H PRN IV NAUSEA AND/OR VOMITING; Start at 23:30 Acetaminophen (Tylenol Tab) 650 mg Q6H PRN PO PAIN LEVEL 1-3 OR FEVER; Start at 23:30 Acetaminophen/ Hydrocodone Bitart ([place] (5/325)) 1 tab Q6H PRN PO PAIN LEVEL 4 -6; Start 11/21/16 at 23:30 Morphine Sulfate (morphine) 2 mg Q4H PRN IV PAIN LEVEL 7-10; Start 11/21/16 at 23:30 Docusate Sodium (Colace) 100 mg Q12H PRN PO CONSTIPATION; Start 11/21/16 at 23: 30 Pantoprazole (Protonix Iv) 40 mg DAILY@06 IV Last administered on 11/29/16 06: 23; Admin Dose 40 MG; Start 11/22/16 at 06:00 Aspirin (Aspirin) 81 mg DAILY PO Last administered on 11/29/16 09:40; Admin Dose 81 MG; Start 11/22/16 at 20:30 Gentamicin Sulfate GENTAMICIN PER PHARMACY NOTE XX ; Start 11/23/16 at 15:00 Fluconazole/ Sodium Chloride (Diflucan 100 Mg/ NS (Pmx)) 50 ml @ 50 mls/hr Q24H IVPB Last administered on 11/28/16 16:30; Admin Dose 50 MLS/HR; Start at 16:00 IV Flush (NS 10 ml) 10 ml PRN PRN IV IV PROTOCOL; Start 11/25/16 at 14:00 Metoprolol Tartrate 25 mg 25 mg BID PO Last administered on 11/28/16 20:40; Admin Dose 25 MG; Start 11/25/16 at 18:44 Metronidazole (Flagyl 500 Mg (Pmx)) 100 ml @ 100 mls/hr Q8 IVPB Last administered on 11/29/16 14:07; Admin Dose 100 MLS/HR; Start 11/26/16 at 15:00 Enoxaparin Sodium (Lovenox) 30 mg DAILY SC Last administered on 11/29/16 09:45 ; Admin Dose 30 MG; Start 11/27/16 at 09:00 Metoclopramide HCl 5 mg 5 mg TID IV Last administered on 11/29/16 14:07; Admin Dose 5 MG; Start 11/26/16 at 21:00 Gentamicin Sulfate (Gentamicin) 50 ml @ 100 mls/hr Q36H IVPB Last administered on 11/28/16 03:09; Admin Dose 100 MLS/HR; Start 11/28/16 at 03:00 Megestrol Acetate 400 mg 400 mg BID PO Last administered on 11/29/16 09:39; Admin Dose 400 MG; Start 11/27/16 at 14:00 Potassium Phosphate/Sodium Chloride (K Phos (Meq)/NS) 254.5455 ml @ 63.636 m... ONCE ONCE IVPB ; Start 11/29/16 at 14:30; Stop 11/29/16 at 18:29 LEANDRO BELL MD Nov 29, 2016 15:38
[2016-11-29] MEDS: GENTAMICIN 80 MG/NS (PMX) 50 ML IVPB SCH (15:57)
--- NOTE | 2016-11-29 16:53 | PN ---
DATE: 11/29/2016 SUBJECTIVE: Patient seen, overall appears comfortable, but still not much responding to me. Case d iscussed with nursing staff as she informed me that the son opted for a G-tube placement. Also, he is concerned about the patient's left wrist contracture. Noted this morning electrolytes as patient has hypokalemia, hypophosphatemia and hypomagnesemia. PHYSICAL EXAMINATION: VITAL SIGNS: Temperature 98.7, pulse 79, respirations 18, blood pressure 137/71, saturation 100% on 2 liters. GENERAL: The patient is in no acute distress, thin looking, pale. CARDIOVASCULAR: S1 and S2, regular rate and rhythm. LUNGS: Decreased bilaterally. ABDOMEN: Soft, nontender. EXTREMITIES: No clubbing, cyanosis, or edema. LABORATORY DATA: White count is 12.7, hemoglobin 10, hematocrit 30, platelet count of 186, neutroph ils 66%, lymphocytes 23%. Chemistry: Sodium is 144, potassium 3.3, chloride 112, bicarbonate 23, B UN is 22, creatinine 0.89, glucose of 85. Phosphorus 2.3, magnesium 1.6. UA on admission did show Proteus mirabilis sensitive to gentamicin. The patient's swab of the nares negative. MEDICATIONS: 1. K-Phos x1. 2. Magnesium sulfate x1. 3. Gentamicin dosed per pharmacy. 4. Megace 400 b.i.d. 5. Lovenox 30 mg subq every day. 6. Reglan 5 mg IV t.i.d. 7. Metronidazole 500 IV q.8 hours. 8. Lopressor b.i.d. 9. Diflucan 100 mg q.24h. 10. Gentamicin dosed per pharmacy. 11. Aspirin 81 mg daily. 12. Protonix 40 IV daily. 13. Zofran p.r.n. 14. Tylenol p.r.n. 15. [place] p.r.n. 16. Morphine p.r.n. 17. Albuterol and Atrovent p.r.n. ASSESSMENT AND PLAN: This 81-year-old female with history of cerebrovascular acciden t, debilitated, dysphagia, hypertension, left hemiplegia, carotid stenosis who presented with enceph alopathy, dehydration, acute renal failure, urinary tract infection and left heel wound. 1. Respiratory. Continue O2 support would definitely recommend feeding tube placement. The patien t is overall at risk of aspiration, despite passing the video swallow test. Remains on pureed diet for now. 2. Cardiovascular. Patient with history of arrhythmia, currently on beta blockers. Continue deep venous thrombosis prophylaxis with Lovenox. Recent venous ultrasound shows no evidence of deep veno us thrombosis. 3. Acute renal failure and hypernatremia, resolved with fluid hydration. 4. Malnutrition. The patient does not appear to meet caloric intake. Once she is eating again, we will proceed with G-tube placement if okay with family. 5. The patient is FULL CODE. 6. Urinary tract infection. Continue IV gentamicin. 7. Empirically also on Flagyl for possible Clostridium difficile colitis. 8. Left heel wound. Continue offloading and nutritional support. 9. Overall long-term prognosis is guarded. Patient is status post cerebrovascular accident and damien y debilitated and cachectic. 10. Moderate protein malnutrition. Again, we will proceed with G-tube placement as discussed with Dr. Putnam in the a.m. hopefully. 11. Left wrist contractures. Will consult orthopedics for possible brace placement. In the meanti me, pain control. 12. Renal. Replace magnesium, phosphorous and potassium. Monitor electrolytes. We will follow. Dictated By: SHAWNA DONALD/RAQUEL Conf#: [id number] DID#: [id number]
[2016-11-29] MEDS: FLUCONAZOLE 100 MG/NS (PMX) 50 ML IVPB SCH (16:54)
--- NOTE | 2016-11-29 20:03 | PN ---
DATE: 11/29/2016 SUBJECTIVE: Discussed with the staff. Rhythm strip was reviewed. The patient remains in sinus rhy thm, sinus tachycardia with frequent PACs. Nonverbal. Appears to be comfortable, is not in respira tory failure. MEDICATIONS: Reviewed. PHYSICAL EXAMINATION: VITAL SIGNS: Temperature 98.9, heart rate of 89, blood pressure 134/69, respiratory rate of 18, sat urating 100%. HEENT: Normocephalic, atraumatic. Pupils are equal. CARDIOVASCULAR: Regular rate and rhythm. PULMONARY: No wheezes anteriorly. Minimal rhonchi. GASTROINTESTINAL: Soft, nontender. EXTREMITIES: No significant edema. NEUROLOGIC: Awake and alert. Opens her eyes, does not answer questions though. LABORATORY: WBC of 12.7, hemoglobin 9.8, platelets of 186. Sodium 144, potassium 3.3, BUN of 22, c reatinine 0.89, glucose of 85. ASSESSMENT AND PLAN: 1. Mildly abnormal troponin. 2. Renal failure, improved now. 3. Hypernatremia. 4. Dehydration. 5. Tachycardia. 6. Urinary tract infection. 7. Encephalopathy. 8. History of cerebrovascular accident. 9. History of hypertension. 10. Dysphagia. RECOMMENDATIONS: Electrolytes including potassium and magnesium to be replaced. Will continue with the beta sandip as tolerated. Nutritional support as tolerated. Antibiotic as per Dr. Carolina. Dictated By: REBECA SOLIMAN MD AV/RAQUEL Conf#: [id number] DID#: [id number] CC: SHAWNA CAROLINA MD;*End*
[2016-11-30] VITALS (15 sets, daily range): BP systolic 101–176; BP diastolic 70–111; PULSE 93–129; RESP 18–24
[2016-11-30] MEDS: PANTOPRAZOLE 40 MG INJ IV SCH (05:23)
[2016-11-30] MEDS: metroNIDAZOLE 500 MG/NS (PMX) 100 ML IVPB SCH ×3 (05:23→21:33)
[2016-11-30 07:10] LABS: POTASSIUM 3.7 mmol/L (3.5-5.1)
[2016-11-30 07:13] LABS: CALCIUM 9.5 mg/dl (8.4-10.2); CREATININE 0.78 mg/dl (0.44-1.00)
[2016-11-30 07:14] LABS: BASOPHIL # 0.1 10^3/ul (0.0-0.1); BASOPHILS % 0.5 % (0.0-2.0); EOSINOPHILS # 0.1 10^3/ul (0.0-0.5); EOSINOPHILS % 0.6 % (0.0-7.0); HEMATOCRIT 31.7 % (37.0-47.0); HEMOGLOBIN 10.2 g/dl (12.0-16.0); LYMPHOCYTES # 2.7 10^3/ul (0.8-2.9); LYMPHOCYTES % 22.7 % (15.0-51.0); MEAN CORPUSCULAR HEMOGLOBIN 20.8 pg (29.0-33.0); MEAN CORPUSCULAR VOLUME 64.8 fl (82.0-101.0); MONOCYTE # 1.2 10^3/ul (0.3-0.9); MONOCYTES % 10.1 % (0.0-11.0); NEUTROPHIL # 7.9 10^3/ul (1.6-7.5); NEUTROPHILS % 66.1 % (39.0-77.0); PLATELET COUNT 257 10^3/UL (140-440); RED BLOOD COUNT 4.89 10^6/ul (4.20-5.40); RED CELL DISTRIBUTION WIDTH 19.2 % (11.5-14.5)
[2016-11-30 07:33] LABS: MAGNESIUM 2.1 mg/dl (1.7-2.5); PHOSPHORUS 3.7 mg/dl (2.5-4.9)
[2016-11-30 07:46] LABS: CONDITION 1; LH ANALYZER COMMENTS 1
[2016-11-30] MEDS: METOPROLOL 25 MG TAB PO SCH ×3 (09:00→21:33)
[2016-11-30] MEDS: ASPIRIN 81 MG TAB PO SCH (09:00)
[2016-11-30] MEDS: MEGESTROL (40 MG/ML) 10ML CUP PO SCH ×3 (09:00→21:32)
[2016-11-30] MEDS: METOCLOPRAMIDE 10 MG INJ IV SCH ×3 (09:44→21:33)
[2016-11-30] MEDS ORDERED: PROPOFOL 20 ML ONE (11:52)
[2016-11-30] MEDS ORDERED: CEFAZOLIN 1 GM/50 ML (PMX) 50 ML IVPB ONE (11:55)
[2016-11-30] MEDS ORDERED: EPHEDrine SULFATE 50 MG/5 ML SYG ONE (13:34)
--- NOTE | 2016-11-30 14:21 | PN ---
DATE: 11/30/2016 The patient is currently undergoing a G-tube placement. I saw the patient in the GI lab. The son i s present. He consented for the procedure, as he stated that he understands the patient has not bee n eating or not doing very well recently and definitely he is okay with G-tube placement. Case disc ussed with Dr. Putnam. PHYSICAL EXAMINATION: VITAL SIGNS: Temperature 96.8, slightly tachycardic today. Heart rate 129, respirations 22, blood pressure 148/98, saturation is 100% on 2 liters. GENERAL: The patient is in no acute distress, not much responsive. The patient is pale. CARDIOVASCULAR: S1 and S2. LUNGS: Decreased bilaterally. ABDOMEN: Soft, nontender. EXTREMITIES: No clubbing, cyanosis, or edema. LABORATORY DATA: White count is 12, hemoglobin 10.2, hematocrit 32, platelets of 57, lymphocytes 66 %, lymphocytes 23%. Chemistry: Sodium is 145, potassium 3.7, chloride 112, bicarbonate 21, BUN is 21, creatinine 0.7, glucose of 85. Phosphorus 3.7, magnesium is 2.1. Urine culture did show Proteu s mirabilis sensitive to gentamicin. MEDICATIONS: 1. Gentamicin dose per pharmacy. 2. Megace 400 b.i.d., which we can discontinue as patient will be placed on G-tube feedings soon. 3. Reglan 5 mg IV t.i.d. 4. Flagyl 500 IV q.8h. hours. 5. Lopressor 25 b.i.d. 6. Diflucan q.24h. 7. Gentamicin dose to pharmacy. 8. Aspirin 81 mg daily. 9. Protonix 40 mg daily. 10. Zofran p.r.n. 11. Tylenol p.r.n. 12. [place] p.r.n. 13. Colace p.r.n. 14. Breathing treatments p.r.n. ASSESSMENT AND PLAN: This is a very unfortunate 81-year-old female with history of c erebrovascular, debilitated, dysphagia, hypertension, left hemiplegia, carotid stenosis, who present ed with encephalopathy, dehydration, acute renal failure, UTI and left heel wound. 1. Respiratory. Continue O2 support. We will definitely recommend and possibly keep her n.p.o. fo r now until she is stronger to prevent aspiration. Follow up with chest x-ray. 2. Cardiovascular. Patient with arrhythmia on beta blockers. Continue Lovenox for DVT prophylaxis . Cardiology is following. 3. Gastrointestinal. The patient with moderate protein malnutrition. Risk for aspiration G-tube t o be placed and feeding will be started. We will consult dietitian for recommendations. 4. Infectious disease. The patient is on IV and gentamicin for urinary tract infection. We will r epeat urine studies to document resolution. 5. Left heel wound. Continue nutritional support, offloading vitamins. 6. Long-term prognosis remains guarded. 7. Left wrist contractures. I asked Dr. Fragoso to see the patient in consultation. Awaiting further recommendations from possible brace placement. Empirically on Flagyl for possible C. difficile. 8. Tachycardia, may be multifactorial from possible pain, possible infection, etc. SIMPSONMarco Antonio mike. Case discussed with son and Dr. Putnam, who will follow. Dictated By: SHAWNA DONALD/RAQUEL Conf#: [id number] DID#: [id number]
[2016-11-30] MEDS: FLUCONAZOLE 100 MG/NS (PMX) 50 ML IVPB SCH (17:42)
--- NOTE | 2016-11-30 18:02 | PN ---
Date/Time of Note Date/Time of Note DATE: 11/30/16 TIME: 17:55 Assessment/Plan Lines/Catheters IV Catheter Type (from Nrs): Peripheral IV [place] in Place (from Nrs): Yes Assessment/Plan Problems: (1) Decubitus ulcer, heel Qualifiers: Pressure ulcer stage: stage III Assessment/Plan Continue heel elevation on both feet. Patient will be followed in-house. Subjective 24 Hr Interval Summary Patient was seen and examined at bedside. Patient apparently had a GI operation today. Patient is daughter was in the room. Patient's daughter states that the heel elevators have been applied to both feet. Constitutional: no complaints Pain Control: well controlled Exam/Review of Systems Vital Signs Vitals Vital Signs Date Time Temp Pulse Resp B/P Pulse Ox O2 Delivery O2 Flow Rate FiO2 11/30/16 16:14 98.7 126 22 170/98 99 11/30/16 13:51 Nasal Cannula 2.0 Intake and Output 11/29/16 11/29/16 11/30/16 15:00 23:00 07:00 Intake Total 50 ml 150 ml Output Total 600 ml 400 ml Balance -550 ml -250 ml Exam Free Text/Dictation Patient was seen today at bedside. She is lethargic. She has boots on both feet with heels off the bed. Decubitus heel ulcerations present noninfected with no pus and no bleeding. Palpable pulses weak bilateral feet. Edema of both feet noted. Results Result Diagram: 11/30/16 0628 11/30/16 0625 LEON FLYNN DPM Nov 30, 2016 18:02
--- NOTE | 2016-11-30 21:05 | GILP ---
DATE OF PROCEDURE: An 81-year-old female suffering from dysphagia and also failure to thrive. Her p.o. intake had been extremely poor. The purpose of this procedure is to put a G-tube into the stomach for custodial ent eral nutrition. INFORMED CONSENT: The risk of the procedure, related and unrelated complications, anesthetic risks, alternatives discussed and informed consent was obtained. DESCRIPTION OF PROCEDURE: The patient was brought to the GI lab, sedated by Dr. Griffith and hari or to the procedure. After appropriate sedation, scope was passed with much ease into the esophagus , advanced further down into stomach and duodenum. There was no evidence of obstruction. By transi llumination and digital palpation technique, appropriate site was chosen on anterior abdominal wall. The site was sterilized with chlorhexidine solution, 2% Xylocaine instilled by safe method. A sma ll incision was made. Through that incision, trocar stylet passed into the stomach. Stylet was rem cj through the hollow tip of the catheter, the insertion wire was passed and the entire procedure was completed by modified Ponsky technique. The patient was rescoped. The position of the internal bumper confirmed. External bumper secured. Tolerated the procedure very well. IMPRESSION: Successful placement of G-tube done. PLAN: Resume feeding at 8 p.m., 20 mL per hour and gradually will increase it. Abdominal binder al l the time. Dictated By: LEANDRO DUMONT/RAQUEL Conf#: [id number] DID#: [id number]
--- NOTE | 2016-11-30 22:34 | GILP ---
DATE OF PROCEDURE: INDICATION: An 81-year-old female undergoing this procedure for failure to thrive. The risk of the procedure, related and unrelated complications, anesthetic risks, alternatives discussed and inform ed consent was obtained. DESCRIPTION OF PROCEDURE: The patient was brought to the GI lab, sedated by Dr. Griffith. After optima l sedation, she was given antibiotic. Scope was passed with much ease into esophagus, advanced down into stomach, then into the duodenum. No evidence of obstruction. By transillumination and digita l palpation technique, appropriate site was chosen on the anterior abdominal wall. The site was humberto rilized with chlorhexidine solution. Xylocaine 2% instilled by safe method. Small incision was mad e. Through that incision, trocar stylus passed into the stomach. Stylet was removed. Over the tip of the catheter, the insertion wire was passed and the entire procedure was completed by modified P estherky technique. The patient was rescoped. The position of the internal bumper confirmed. Externa l bumper secured. She tolerated the procedure very well. IMPRESSION: Percutaneous endoscopic gastrostomy done without any complication. PLAN: Resume feeding tonight. Abdominal binder all the time. Dictated By: LEANDRO DUMONT/RAQUEL Conf#: [id number] DID#: [id number] CC: LEANDRO BELL MD; SHAWNA CAROLINA MD;*End*
[2016-12-01] VITALS (13 sets, daily range): BP systolic 127–180; BP diastolic 66–94; PULSE 88–127; RESP 18–20
[2016-12-01] MEDS: GENTAMICIN 80 MG/NS (PMX) 50 ML IVPB SCH (03:00)
[2016-12-01] MEDS: PANTOPRAZOLE 40 MG INJ IV SCH (06:25)
[2016-12-01] MEDS: metroNIDAZOLE 500 MG/NS (PMX) 100 ML IVPB SCH ×3 (06:25→20:53)
[2016-12-01] MEDS: METOCLOPRAMIDE 10 MG INJ IV SCH ×3 (10:00→20:52)
[2016-12-01] MEDS: METOPROLOL 25 MG TAB PEG SCH ×2 (10:07→20:53)
[2016-12-01] MEDS: ASPIRIN 81 MG TAB PO SCH (10:07)
[2016-12-01] MEDS: MEGESTROL (40 MG/ML) 10ML CUP PO SCH (10:07)
--- NOTE | 2016-12-01 11:34 | PN ---
DATE: 12/01/2016 CARDIOLOGY FOLLOWUP SUBJECTIVE: Discussed with the staff. Rhythm strip was reviewed. The patient remains in sinus rhy thm, sinus tachycardia, mostly. Has frequent PACs. Patient remains nonverbal, still n.p.o. to take medication, even now. MEDICATIONS: Reviewed. PHYSICAL EXAMINATION: VITAL SIGNS: Temperature 98.3, heart rate of 125, blood pressure of 127/70, respiration rate of 20, saturating 100%. HEENT: Normocephalic, atraumatic. Elderly female. EYES: Pupils are equal. CARDIOVASCULAR: Tachycardic. PULMONARY: With no wheezes heard. GASTROINTESTINAL: Soft, nontender. EXTREMITIES: Trivial edema. NEUROLOGIC: Awake, nonverbal. ASSESSMENT AND PLAN: 1. Mildly abnormal troponin ____. 2. Renal failure, improved. 3. Electrolyte abnormality, hypernatremia. 4. Dysphagia, status post percutaneous endoscopic gastrostomy placement. 5. History of cerebrovascular accident. 6. Hypertension. RECOMMENDATIONS: The patient will resume her beta sandip through a PEG placement. We will continu e to correct electrolytes as needed. Antibiotic as per Dr. Bowers and associates. Dictated By: REBECA SOLIMAN MD AV/RAQUEL Conf#: [id number] DID#: [id number]
--- NOTE | 2016-12-01 16:01 | CONS ---
Date/Time of Note Date/Time of Note DATE: 12/01/16 TIME: 16:00 Assessment/Plan Assessment/Plan Additional Assessment/Plan Additional Assessment/Plan Impression: 1. Dysphagia,s/p PEG 2. protein calorie malnutrition 3. Arrhythmia: stable 4. Persistent leukocytosis with remote history of C. diff. 5. Urinary tract infection. 6. Dehydration. REcommendation: 1. continue Megace to stimulate appetite 2. continue current dysphagia diet 3. f/u calorie count 4. f/u stool for C. difficile. 5. continue current abx per pcp and ID 6.resume feeding Consultation Date/Type/Reason Admit Date/Time Nov 21, 2016 at 23:08 Type of Consultation: GI 24 HR Interval Summary Constitutional: improved, no complaints Exam/Review of Systems Vital Signs Vitals Vital Signs Date Time Temp Pulse Resp B/P Pulse Ox O2 Delivery O2 Flow Rate FiO2 12/01/16 12:12 125 12/01/16 12:00 98.3 19 138/81 99 12/01/16 08:26 2.0 12/01/16 08:10 Nasal Cannula Intake and Output 11/30/16 11/30/16 12/01/16 15:00 23:00 07:00 Intake Total 0 ml 150 ml Output Total 750 ml 250 ml 375 ml Balance -750 ml -250 ml -225 ml Exam Constitutional: alert, oriented, well developed Psych: nl mood/affect, no complaints Head: atraumatic, normocephalic Eyes: EOMI, PERRL, nl conjunctiva, nl lids, nl sclera ENMT: nl external ears & nose, nl lips & teeth, nl nasal mucosa & septum Neck: non-tender, supple Respiratory: clear to auscultation, normal air movement Cardiovascular: nl pulses, regular rate and rhythm Gastrointestinal: nl liver, spleen, non-tender, soft Musculoskeletal: nl extremities to inspection, nl gait and stance Extremities: normal pulses Neurological: EC TEACHER II-XII intact, nl mental status, nl speech, nl strength Skin: nl turgor, No rash or lesions Lymph: nl lymph nodes Results Result Diagram: 11/30/16 0628 11/30/16 0625 Medications Medications Current Medications Ondansetron HCl (Zofran Inj) 4 mg Q6H PRN IV NAUSEA AND/OR VOMITING; Start at 23:30 Acetaminophen (Tylenol Tab) 650 mg Q6H PRN PO PAIN LEVEL 1-3 OR FEVER; Start at 23:30 Acetaminophen/ Hydrocodone Bitart ([place] (5/325)) 1 tab Q6H PRN PO PAIN LEVEL 4 -6; Start 11/21/16 at 23:30 Morphine Sulfate (morphine) 2 mg Q4H PRN IV PAIN LEVEL 7-10; Start 11/21/16 at 23:30 Docusate Sodium (Colace) 100 mg Q12H PRN PO CONSTIPATION; Start 11/21/16 at 23: 30 Pantoprazole (Protonix Iv) 40 mg DAILY@06 IV Last administered on 12/01/16 06: 25; Admin Dose 40 MG; Start 11/22/16 at 06:00 Aspirin (Aspirin) 81 mg DAILY PO Last administered on 12/01/16 10:07; Admin Dose 81 MG; Start 11/22/16 at 20:30 Gentamicin Sulfate GENTAMICIN PER PHARMACY NOTE XX ; Start 11/23/16 at 15:00 Fluconazole/ Sodium Chloride (Diflucan 100 Mg/ NS (Pmx)) 50 ml @ 50 mls/hr Q24H IVPB Last administered on 11/30/16 17:42; Admin Dose 50 MLS/HR; Start at 16:00 IV Flush 10 ml 10 ml PRN PRN IV IV PROTOCOL; Start 11/25/16 at 14:00 Metronidazole (Flagyl 500 Mg (Pmx)) 100 ml @ 100 mls/hr Q8 IVPB Last administered on 12/01/16 15:05; Admin Dose 100 MLS/HR; Start 11/26/16 at 15:00 Metoclopramide HCl 5 mg 5 mg TID IV Last administered on 12/01/16 15:04; Admin Dose 5 MG; Start 11/26/16 at 21:00 Gentamicin Sulfate (Gentamicin) 50 ml @ 100 mls/hr Q36H IVPB Last administered on 12/01/16 03:00; Admin Dose 100 MLS/HR; Start 11/28/16 at 03:00 Megestrol Acetate (Megace Susp) 400 mg BID PO Last administered on 12/01/16 10: 07; Admin Dose 400 MG; Start 11/27/16 at 14:00 Metoprolol Tartrate (Lopressor) 25 mg BID PEG Last administered on 12/01/16t 10: 07; Admin Dose 25 MG; Start 12/01/16 at 09:00 LEANDRO BELL MD Dec 01, 2016 16:01
[2016-12-01] MEDS: FLUCONAZOLE 100 MG/NS (PMX) 50 ML IVPB SCH (17:15)
--- NOTE | 2016-12-01 18:39 | PN ---
DATE: 12/01/2016 SUBJECTIVE: The patient seen status post G-tube placement done yesterday. The patient tolerated th e procedure well. The patient is awaiting G-tube feeding. Case discussed with daughter at bedside. The patient continues to have a low-grade temperature. PHYSICAL EXAMINATION: VITAL SIGNS: T-max is 99.1, which was just now. Pulse 88, respirations 18, blood pressure 145/66, saturation 100% on 2 liters. GENERAL: The patient is in no acute distress, not very responsive, pale, staring. CARDIOVASCULAR: S1 and S2, regular rate. LUNGS: Clear bilaterally. ABDOMEN: Soft, nontender. EXTREMITIES: Upper extremity trace to +1 edema. Lower extremities, no significant edema. LABORATORY DATA: White count is 12, that was yesterday, with a BUN and creatinine of 21/0.78 yester day. No new labs today. Urine culture: She shows Proteus mirabilis sensitive to gentamicin. Othe rwise, MRSA of the nares negative. Blood cultures were negative. Chest x-ray dated 11/24/2016 show s no acute infiltrates. MEDICATIONS: Include the followin. Metoprolol 25 b.i.d. 2. Gentamicin IV dose per pharmacy. 3. Megace 400 b.i.d. 4. Reglan 5 mg IV t.i.d. 5. Flagyl 500 IV q.8h. 6. Diflucan q.24h. 7. Gentamicin dosed per pharmacy. 8. Aspirin 81 mg daily. 9. Protonix 40 IV daily. 10. Zofran p.r.n. 11. Tylenol p.r.n. 12. [place] p.r.n. 13. Morphine p.r.n. 14. Colace p.r.n. 15. Albuterol and Atrovent p.r.n. ASSESSMENT AND PLAN: This is an 81-year-old female with history of cerebrovascular a ccident, debility, dysphagia, hypertension, left hemiplegia, carotid stenosis who presented with enc ephalopathy, dehydration, acute renal failure, urinary tract infection, and left heel wounds. 1. Respiratory. Continue O2 support. Continue aspiration precautions. 2. Cardiovascular. The patient with arrhythmia on beta-blockers. Will restart patient on blood inner for deep vein thrombosis prophylaxis. Recent ultrasound of lower extremity shows no evidence of deep vein thrombosis. 3. Gastrointestinal. The patient with moderate protein malnutrition status post G-tube placement. Diet will be advanced and started. Monitor closely. Titrate the Reglan off. 4. Infectious disease. Remains on gentamicin for urinary tract infection. Stool for Clostridium d ifficile was not done, but empirically on Flagyl. Follow up a.m. CBC. Monitor fevers and white cou nt. 5. Left heel wound. Continue nutritional support, offloading, and vitamins. 6. Long-term prognosis is guarded. 7. Tachycardia, improved. Observe. Make sure the patient is pain free. 8. Case discussed with family. We will follow. Dictated By: SHAWNA DONALD/RAQUEL Conf#: [id number] DID#: [id number]
[2016-12-01] MEDS: ENOXAPARIN 40 MG/0.4 ML SYG SC SCH (18:56)
[2016-12-02] VITALS (12 sets, daily range): BP systolic 103–152; BP diastolic 59–94; PULSE 72–93; RESP 20
[2016-12-02] MEDS: metroNIDAZOLE 500 MG/NS (PMX) 100 ML IVPB SCH ×3 (05:37→21:31)
[2016-12-02] MEDS: PANTOPRAZOLE 40 MG INJ IV SCH (05:37)
[2016-12-02 07:52] LABS: BASOPHILS % 0.3 % (0.0-2.0); EOSINOPHILS % 0.2 % (0.0-7.0); HEMOGLOBIN 9.5 g/dl (12.0-16.0); LYMPHOCYTES # 2.1 10^3/ul (0.8-2.9); LYMPHOCYTES % 20.2 % (15.0-51.0); MEAN CORPUSCULAR HEMOGLOBIN 20.8 pg (29.0-33.0); MEAN CORPUSCULAR HGB CONC 31.7 g/dl (32.0-37.0); MEAN CORPUSCULAR VOLUME 65.7 fl (82.0-101.0); MEAN PLATELET VOLUME 8.9 fl (7.4-10.4); MONOCYTES % 9.2 % (0.0-11.0); NEUTROPHIL # 7.3 10^3/ul (1.6-7.5); NEUTROPHILS % 70.1 % (39.0-77.0); PLATELET COUNT 235 10^3/UL (140-440); RED BLOOD COUNT 4.56 10^6/ul (4.20-5.40); RED CELL DISTRIBUTION WIDTH 19.9 % (11.5-14.5); UNCORRECTED WBC 10.4 10^3/ul (4.8-10.8); WHITE BLOOD COUNT 10.4 10^3/ul (4.8-10.8)
[2016-12-02 07:54] LABS: POTASSIUM 3.2 mmol/L (3.5-5.1)
[2016-12-02 07:57] LABS: CREATININE 0.82 mg/dl (0.44-1.00)
[2016-12-02 07:58] LABS: CALCIUM 9.2 mg/dl (8.4-10.2); PHOSPHORUS 2.7 mg/dl (2.5-4.9)
[2016-12-02 08:04] LABS: CONDITION 1; LH ANALYZER COMMENTS 1
[2016-12-02] MEDS ORDERED: POTASSIUM CHLORIDE 20 MEQ POWDER FOR ORAL SOLN PEG STA (08:45)
[2016-12-02] MEDS: METOCLOPRAMIDE 10 MG INJ IV SCH ×3 (08:54→21:31)
[2016-12-02] MEDS: ASPIRIN 81 MG TAB PO SCH (08:54)
[2016-12-02] MEDS: METOPROLOL 25 MG TAB PEG SCH ×3 (08:55→21:32)
[2016-12-02] MEDS: ENOXAPARIN 40 MG/0.4 ML SYG SC SCH (08:56)
--- NOTE | 2016-12-02 12:09 | PN ---
DATE: 12/02/2016 CARDIOLOGY FOLLOWUP PROGRESS NOTE SUBJECTIVE: Discussed with the staff. The patient remains in sinus rhythm, sinus tachycardia, freq uent PACs, stable, but improved. The patient nonverbal, not able to provide any history to me. MEDICATIONS: Reviewed. PHYSICAL EXAMINATION: VITAL SIGNS: Temperature 97.8, heart rate of 93, blood pressure 126/69, respiratory rate of 20, sat urating 96%. HEENT: Normocephalic, atraumatic. Elderly female. Pupils are equal. CARDIOVASCULAR: Regular rate and rhythm, systolic murmur. PULMONARY: With no wheezes anteriorly. GASTROINTESTINAL: Soft, status post percutaneous endoscopic gastrostomy placement. EXTREMITIES: With positive edema. NEUROLOGIC: Awake, does not verbalize. LABORATORY: WBC of 10.4, hemoglobin 9.5, platelets of 235. Sodium 144, potassium 3.2, BUN of 23, c reatinine 0.82, glucose of 137. Magnesium is 2. ASSESSMENT AND PLAN: 1. Mildly abnormal troponin consistent with false positive troponin. 2. Renal failure, improved now. 3. Electrolyte abnormality, hypernatremia, and hypokalemia. 4. Dysphagia, status post percutaneous endoscopic gastrostomy placement. 5. History of cerebrovascular accident. 6. Encephalopathy. 7. Hypertension. RECOMMENDATIONS: Will replace the potassium. Will increase the beta sandip to t.i.d. dose. We wi ll monitor her closely. Continue with nutritional support. Antibiotic as per Dr. Carolina. Dictated By: REBECA SOLIMAN MD AV/NTS Conf#: [id number] DID#: [id number] CC: SHAWNA CAROLINA MD;*End*
--- NOTE | 2016-12-02 15:47 | RADRPT ---
PROCEDURE: Left wrist radiographs. CLINICAL INDICATION: Left wrist pain. TECHNIQUE: Two views. Frontal and lateral. COMPARISON: No prior studies are available for comparison. FINDINGS: There is no fracture or dislocation. The soft tissues are normal. There is diffuse osteopenia. Articular surfaces are intact. There is no lytic or blastic lesion. There is no radiopaque foreign body. IMPRESSION: 1. No fracture or dislocation. 2. Diffuse osteopenia. 3. Otherwise normal images of the left wrist. RPTAT: QQ .Marc Hernandez MD, MD Date Time Electronically viewed and signed by .Marc Hernandez MD, on 12/02/2016 15:46 .R/
[2016-12-02] MEDS: GENTAMICIN 80 MG/NS (PMX) 50 ML IVPB SCH (16:27)
--- NOTE | 2016-12-02 17:15 | CONS ---
DATE OF ADMISSION: 11/21/2016 DATE OF CONSULTATION: 12/02/2016 TYPE OF CONSULTATION: Orthopedic consultation 12/02/2016. HISTORY OF PRESENT ILLNESS: The patient is an 87-year-old female, a resident of [facility] with dementia and known CVA with left-sided hemiplegia who was admitted on 11/21/2016 when sh richelle developed signs of septicemia with lethargy. The initial evaluation revealed the presence of seps is, most probably from urinary treatment tract infection with the possibility of aspiration pneumoni a and she was admitted. 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 On inquiring, she had 2 episodes of CVA resulting in left-sided hemiplegia. PHYSICAL EXAMINATION: My examination revealed an 81-year-old female who cannot participate in any h istory taking or physical examination. There obviously was a hemiplegia involving the left upper ext remity. There was a volar flexion contracture of the left wrist with a pronation component. This flexion contracture component has an element of forceful flexion and the pronation. The flexion contracture could not be corrected with extension and maintained in a corrected wrist ex tension unless the forceful pressure is applied on the volar side of the left hand and left wrist. 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 RECOMMENDATIONS: Mobilization in a static extended position with the cock-up wrist brace is not rec ommended because it is not improving the situation other than making it look better and applying a f orceful brace on the wrist has a danger of causing pressure ulceration over the volar aspect. Her condition and the recommendation against the bracing was discussed with the family members at [facility] and they understood. Dictated By: JAMI PERDOMO/RAQUEL Conf#: [id number] DID#: [id number]
[2016-12-02] MEDS: FLUCONAZOLE 100 MG/NS (PMX) 50 ML IVPB SCH (18:00)
--- NOTE | 2016-12-02 20:11 | CONS ---
Date/Time of Note Date/Time of Note DATE: 12/02/16 TIME: 20:10 Assessment/Plan Assessment/Plan Additional Assessment/Plan Additional Assessment/Plan Impression: 1. Dysphagia,s/p PEG 2. protein calorie malnutrition 3. Arrhythmia: stable 4. Persistent leukocytosis with remote history of C. diff. 5. Urinary tract infection. 6. Dehydration. REcommendation: 1. continue Megace to stimulate appetite 2. continue current dysphagia diet 3. f/u calorie count 4. f/u stool for C. difficile. 5. continue current abx per pcp and ID 6.resume feeding,increase it gradually as per dietitian Consultation Date/Type/Reason Admit Date/Time Nov 21, 2016 at 23:08 Type of Consultation: GI 24 HR Interval Summary Constitutional: no complaints Exam/Review of Systems Vital Signs Vitals Vital Signs Date Time Temp Pulse Resp B/P Pulse Ox O2 Delivery O2 Flow Rate FiO2 12/02/16 17:29 2.0 12/02/16 16:22 97.5 84 20 126/75 97 12/02/16 08:10 Nasal Cannula Intake and Output 12/01/16 12/01/16 12/02/16 15:00 23:00 07:00 Intake Total 250 ml 540 ml Output Total 375 ml 600 ml Balance -125 ml -60 ml Exam Constitutional: alert, oriented, well developed Psych: nl mood/affect, no complaints Head: atraumatic, normocephalic Eyes: EOMI, PERRL, nl conjunctiva, nl lids, nl sclera ENMT: nl external ears & nose, nl lips & teeth, nl nasal mucosa & septum Neck: non-tender, supple Respiratory: clear to auscultation, normal air movement Cardiovascular: nl pulses, regular rate and rhythm Gastrointestinal: nl liver, spleen, non-tender, soft Musculoskeletal: nl extremities to inspection, nl gait and stance Extremities: normal pulses Neurological: MARINE INSURANCE CLAIM EXAMINER II-XII intact, nl mental status, nl speech, nl strength Skin: nl turgor, No rash or lesions Lymph: nl lymph nodes Results Result Diagram: 12/02/16 0705 12/02/16 0705 Results 24 hrs Laboratory Tests Test 12/02/16 07:05 Anion Gap 15 Basophils # 0.0 Basophils % 0.3 Blood Morphology Comment Blood Urea Nitrogen 23 H Calcium Level 9.2 Carbon Dioxide Level 21 Chloride Level 111 H Creatinine 0.82 Eosinophils # 0.0 Eosinophils % 0.2 Glucose Level 137 Hematocrit 30.0 L Hemoglobin 9.5 L Lymphocytes # 2.1 Lymphocytes % 20.2 Magnesium Level 2.0 Mean Corpuscular Hemoglobin 20.8 L Mean Corpuscular Hemoglobin Concent 31.7 L Mean Corpuscular Volume 65.7 L Mean Platelet Volume 8.9 Monocytes # 1.0 H Monocytes % 9.2 Neutrophils # 7.3 Neutrophils % 70.1 Nucleated Red Blood Cells # 0.0 Nucleated Red Blood Cells % 0.0 Phosphorus Level 2.7 Platelet Count 235 Potassium Level 3.2 L Red Blood Count 4.56 Red Cell Distribution Width 19.9 H Sodium Level 144 White Blood Count 10.4 Medications Medications Current Medications Ondansetron HCl (Zofran Inj) 4 mg Q6H PRN IV NAUSEA AND/OR VOMITING; Start at 23:30 Acetaminophen (Tylenol Tab) 650 mg Q6H PRN PO PAIN LEVEL 1-3 OR FEVER; Start at 23:30 Acetaminophen/ Hydrocodone Bitart ([place] (5/325)) 1 tab Q6H PRN PO PAIN LEVEL 4 -6; Start 11/21/16 at 23:30 Morphine Sulfate (morphine) 2 mg Q4H PRN IV PAIN LEVEL 7-10; Start 11/21/16 at 23:30 Docusate Sodium (Colace) 100 mg Q12H PRN PO CONSTIPATION; Start 11/21/16 at 23: 30 Pantoprazole (Protonix Iv) 40 mg DAILY@06 IV Last administered on 12/02/16 05: 37; Admin Dose 40 MG; Start 11/22/16 at 06:00 Aspirin (Aspirin) 81 mg DAILY PO Last administered on 12/02/16 08:54; Admin Dose 81 MG; Start 11/22/16 at 20:30 Gentamicin Sulfate GENTAMICIN PER PHARMACY NOTE XX ; Start 11/23/16 at 15:00 Fluconazole/ Sodium Chloride (Diflucan 100 Mg/ NS (Pmx)) 50 ml @ 50 mls/hr Q24H IVPB Last administered on 12/02/16 18:00; Admin Dose 50 MLS/HR; Start 11/24/16 at 16:00 IV Flush 10 ml 10 ml PRN PRN IV IV PROTOCOL; Start 11/25/16 at 14:00 Metronidazole (Flagyl 500 Mg (Pmx)) 100 ml @ 100 mls/hr Q8 IVPB Last administered on 12/02/16 14:55; Admin Dose 100 MLS/HR; Start 11/26/16 at 15:00 Metoclopramide HCl 5 mg 5 mg TID IV Last administered on 12/02/16 14:56; Admin Dose 5 MG; Start 11/26/16 at 21:00 Gentamicin Sulfate (Gentamicin) 50 ml @ 100 mls/hr Q36H IVPB Last administered on 12/02/16 16:27; Admin Dose 100 MLS/HR; Start 11/28/16 at 03:00 Enoxaparin Sodium (Lovenox) 40 mg DAILY SC Last administered on 12/02/16 08:56 ; Admin Dose 40 MG; Start 12/01/16 at 18:30 Metoprolol Tartrate (Lopressor) 25 mg TID PEG Last administered on 12/02/16 14: 56; Admin Dose 25 MG; Start 12/02/16 at 09:00 LEANDRO BELL MD Dec 02, 2016 20:11
[2016-12-03] VITALS (12 sets, daily range): BP systolic 125–169; BP diastolic 74–103; PULSE 8–141; RESP 18–20
[2016-12-03] MEDS: metroNIDAZOLE 500 MG/NS (PMX) 100 ML IVPB SCH (06:02)
[2016-12-03] MEDS: PANTOPRAZOLE 40 MG INJ IV SCH (06:02)
[2016-12-03 06:46] LABS: BASOPHILS % 0.2 % (0.0-2.0); EOSINOPHILS % 0.4 % (0.0-7.0); HEMATOCRIT 30.2 % (37.0-47.0); HEMOGLOBIN 9.7 g/dl (12.0-16.0); LYMPHOCYTES % 20.9 % (15.0-51.0); MEAN CORPUSCULAR HEMOGLOBIN 20.8 pg (29.0-33.0); MEAN CORPUSCULAR HGB CONC 32.2 g/dl (32.0-37.0); MEAN CORPUSCULAR VOLUME 64.5 fl (82.0-101.0); MONOCYTES % 10.2 % (0.0-11.0); NEUTROPHIL # 6.4 10^3/ul (1.6-7.5); NEUTROPHILS % 68.3 % (39.0-77.0); PLATELET COUNT 235 10^3/UL (140-440); RED BLOOD COUNT 4.67 10^6/ul (4.20-5.40); RED CELL DISTRIBUTION WIDTH 19.8 % (11.5-14.5); UNCORRECTED WBC 9.4 10^3/ul (4.8-10.8); WHITE BLOOD COUNT 9.4 10^3/ul (4.8-10.8)
[2016-12-03 06:47] LABS: ALBUMIN 2.3 g/dl (3.3-4.9)
[2016-12-03 06:48] LABS: POTASSIUM 3.8 mmol/L (3.5-5.1)
[2016-12-03 06:50] LABS: ALBUMIN/GLOBULIN RATIO 0.67; CREATININE 0.72 mg/dl (0.44-1.00); TOTAL PROTEIN 5.7 g/dl (6.1-8.1)
[2016-12-03 06:51] LABS: MAGNESIUM 1.9 mg/dl (1.7-2.5)
--- NOTE | 2016-12-03 07:09 | PN ---
DATE: SUBJECTIVE: Patient is status post G-tube placement ____. Diet was started, currently on high dose ____thirsty now. Follow up dietitian recommendation regarding diet. I spoke to ____ the patie nt ____ contractures to see if she would benefit from a brace as family was requesting. Otherwise, no acute events. PHYSICAL EXAMINATION: VITAL SIGNS: T-max 99____., temperature 99, pulse 80, respirations 20, blood pressure ____, saturat ion ____ on oxygen nasal cannula. GENERAL: She is frail, inability to respond. CARDIOVASCULAR: S1, S2. Distant heart sounds. LUNGS: Clear. ABDOMEN: Soft. She has abdominal binder. EXTREMITIES: No clubbing, cyanosis, or edema. ____. LABORATORY DATA: White count 10.4, ____ hemoglobin 9.5, platelets ____. Chemistry: Sodium 144, po tassium 3.2, chloride 107, bicarbonate 23, creatinine ____. ____ was positive. ____she has Proteus mirabilis sensitive to gentamicin ____. MEDICATIONS: 1. Lopressor 25 b.i.d. 2. Lovenox ____, 3. Gentamicin IV dose per pharmacy, 4. Reglan 5 mg t.i.d. 5. Flagyl 500 IV q.8h. 6. Diflucan IV q. 24. 7. Aspirin ____. 8. Protonix 40 p.o. daily. 9. Zofran p.r.n. 10. Tylenol p.r.n. 22. ____ ASSESSMENT AND PLAN: This is an unfortunate 81-year-old female with history of ____C [facility], debilitated state, dysphagia, hypertension, left hemiplegia, carotid stenosis with encephalopath y, dehydration and acute renal failure and left heel wound. 1. Respiratory. Remains stable. Continue aspiration precautions. 2. Cardiovascular: The patient with arrhythmia, remains on beta blockers. The patient does have h istory of DVT. Venous ultrasound was negative for DVT, but I am continuing to place her on Eliquis 2.5 b.i.d. for DVT prevention. Discontinue the patient's Lovenox. Continue aspirin for cardiac pro tection. 3. Gastrointestinal. The patient with moderate protein malnutrition, soft dysphagia status post G- tube placement. Titrate it up to goal and taper off Reglan. 4. Infectious disease. The patient with urinary tract infection, ____, white count is normal. Mo nitor for fevers. 5. Left heel wound. I appreciate podiatry input. Continue offloading, vitamins, nutritional suppo rt. 6. Disposition soon to longterm facility. 7. Left wrist fracture. Dr. Fragoso to see the patient, recommend brace ____may be beneficial, as vee zhao is requesting. We will follow. Dictated By: SHAWNA DONALD/RAQUEL Conf#: [id number] DID#: [id number]
[2016-12-03 07:56] LABS: CONDITION 1; LH ANALYZER COMMENTS 1
[2016-12-03] MEDS: ASPIRIN 81 MG TAB PO SCH (09:26)
[2016-12-03] MEDS: METOPROLOL 25 MG TAB PEG SCH (09:26)
[2016-12-03] MEDS: METOCLOPRAMIDE 10 MG INJ IV SCH ×3 (09:27→21:24)
[2016-12-03] MEDS ORDERED: MAGNESIUM SULFATE 2 GM/50 ML 50 ML IVPB ONE (09:30)
[2016-12-03] MEDS: ENOXAPARIN 40 MG/0.4 ML SYG SC SCH (09:45)
[2016-12-03] MEDS ORDERED: POTASSIUM PHOSPHATE 20 MEQ in SOD CHLORIDE 0.9% 250 ML IVPB ONE (11:00)
[2016-12-03] MEDS: metroNIDAZOLE 500 MG TAB GTB SCH ×2 (14:06→21:25)
--- NOTE | 2016-12-03 16:01 | PN ---
DATE: 12/03/2016 CARDIOLOGY FOLLOWUP SUBJECTIVE: Discussed with the staff, discussed with Dr. Bowers. Rhythm strip was reviewed. The yinka treviño has atrial fibrillation with rapid ventricular response. The patient remains nonverbal. MEDICATIONS: Reviewed. PHYSICAL EXAMINATION: VITAL SIGNS: Temperature 97.8, heart rate of 80. Denying as high as 140s. Blood pressure 135/84, respiration rate of 19, saturating 99%. HEENT: Normocephalic, atraumatic. Elderly female. Pupils are equal. CARDIOVASCULAR: Regular rate and rhythm. Systolic murmur. PULMONARY: No wheezes anteriorly. GASTROINTESTINAL: Soft, status post PEG placement. EXTREMITIES: With trivial lower extremity edema. NEUROLOGIC: Opens her eyes, does not answer my questions. LABORATORY: WBC of 9.4, hemoglobin 9.7, platelets 235. Sodium 142, potassium 3.8, BUN of 26, creat inine 0.72, glucose 151. Magnesium is 1.9. Albumin is 2.3. ASSESSMENT AND PLAN: 1. Paroxysmal atrial fibrillation with rapid ventricular response. 2. History of deep venous thrombosis. 3. Mildly abnormal troponin consistent with positive troponin. 4. Renal failure, currently improved. 5. Electrolyte abnormalities. 6. Dysphagia, status PEG placement, history of cerebrovascular accident. 7. Hypertension. RECOMMENDATIONS: I would increase the metoprolol to 50 b.i.d. Electrolytes: Potassium and magnesiu m will be replaced p.r.n. I agree with Dr. Bowers that the patient would benefit from Eliquis. We will stop the aspirin and Lovenox and place him on Eliquis 2.5 b.i.d. Dictated By: REBECA RADFORD/RAQEUL Conf#: [id number] DID#: [id number]
[2016-12-03] MEDS: FLUCONAZOLE 100 MG TAB GTB SCH (16:54)
--- NOTE | 2016-12-03 20:16 | CONS ---
Date/Time of Note Date/Time of Note DATE: 12/03/16 TIME: 20:15 Assessment/Plan Assessment/Plan Additional Assessment/Plan Additional Assessment/Plan Impression: 1. Dysphagia,s/p PEG 2. protein calorie malnutrition 3. Arrhythmia: stable 4. Persistent leukocytosis with remote history of C. diff. 5. Urinary tract infection. 6. Dehydration. REcommendation: 1. continue Megace to stimulate appetite 2. continue current dysphagia diet 3. f/u calorie count 4. f/u stool for C. difficile. 5. continue current abx per pcp and ID 6.resume feeding,increase it gradually as per dietitian Consultation Date/Type/Reason Admit Date/Time Nov 21, 2016 at 23:08 Type of Consultation: GI 24 HR Interval Summary Constitutional: improved, no complaints Exam/Review of Systems Vital Signs Vitals Vital Signs Date Time Temp Pulse Resp B/P Pulse Ox O2 Delivery O2 Flow Rate FiO2 12/03/16 20:11 100 12/03/16 17:56 2.0 12/03/16 15:57 97.9 18 125/74 97 12/03/16 13:00 Nasal Cannula Exam Constitutional: alert, oriented, well developed Psych: nl mood/affect, no complaints Head: atraumatic, normocephalic Eyes: EOMI, PERRL, nl conjunctiva, nl lids, nl sclera ENMT: nl external ears & nose, nl lips & teeth, nl nasal mucosa & septum Neck: non-tender, supple Respiratory: clear to auscultation, normal air movement Cardiovascular: nl pulses, regular rate and rhythm Gastrointestinal: nl liver, spleen, non-tender, soft Musculoskeletal: nl extremities to inspection, nl gait and stance Extremities: normal pulses Neurological: EXPERIMENTAL TECHNICIAN II-XII intact, nl mental status, nl speech, nl strength Skin: nl turgor, No rash or lesions Lymph: nl lymph nodes Results Result Diagram: 12/03/16 0600 12/03/16 0600 Results 24 hrs Laboratory Tests Test 12/03/16 06:00 Alanine Aminotransferase (ALT/SGPT) 22 Albumin 2.3 L Albumin/Globulin Ratio 0.67 Alkaline Phosphatase 82 Anion Gap 10 # Aspartate Amino Transf (AST/SGOT) 35 Basophils # 0.0 Basophils % 0.2 Blood Morphology Comment Blood Urea Nitrogen 26 H Calcium Level 9.0 Carbon Dioxide Level 25 Chloride Level 111 H Creatinine 0.72 Direct Bilirubin 0.00 Eosinophils # 0.0 Eosinophils % 0.4 Globulin 3.40 H Glucose Level 151 Hematocrit 30.2 L Hemoglobin 9.7 L Indirect Bilirubin 0.0 Lymphocytes # 2.0 Lymphocytes % 20.9 Magnesium Level 1.9 Mean Corpuscular Hemoglobin 20.8 L Mean Corpuscular Hemoglobin Concent 32.2 Mean Corpuscular Volume 64.5 L Mean Platelet Volume 9.0 Monocytes # 1.0 H Monocytes % 10.2 Neutrophils # 6.4 Neutrophils % 68.3 Nucleated Red Blood Cells # 0.0 Nucleated Red Blood Cells % 0.0 Phosphorus Level 1.5 #L Platelet Count 235 Potassium Level 3.8 Red Blood Count 4.67 Red Cell Distribution Width 19.8 H Sodium Level 142 Total Bilirubin 0.0 L Total Protein 5.7 L White Blood Count 9.4 Medications Medications Current Medications Ondansetron HCl (Zofran Inj) 4 mg Q6H PRN IV NAUSEA AND/OR VOMITING; Start at 23:30 Acetaminophen (Tylenol Tab) 650 mg Q6H PRN PO PAIN LEVEL 1-3 OR FEVER; Start at 23:30 Acetaminophen/ Hydrocodone Bitart ([place] (5/325)) 1 tab Q6H PRN PO PAIN LEVEL 4 -6; Start 11/21/16 at 23:30 Morphine Sulfate (morphine) 2 mg Q4H PRN IV PAIN LEVEL 7-10; Start 11/21/16 at 23:30 Docusate Sodium (Colace) 100 mg Q12H PRN PO CONSTIPATION; Start 11/21/16 at 23: 30 Gentamicin Sulfate (Gentamicin Iv Per Pharmacy) GENTAMICIN PER PHARMACY NOTE XX ; Start 11/23/16 at 15:00 IV Flush (NS 10 ml) 10 ml PRN PRN IV IV PROTOCOL; Start 11/25/16 at 14:00 Metoclopramide HCl 5 mg 5 mg TID IV Last administered on 12/03/16 14:06; Admin Dose 5 MG; Start 11/26/16 at 21:00 Gentamicin Sulfate (Gentamicin) 50 ml @ 100 mls/hr Q36H IVPB Last administered on 12/02/16 16:27; Admin Dose 100 MLS/HR; Start 11/28/16 at 03:00 Metronidazole (Flagyl) 500 mg TID GTB Last administered on 12/03/16 14:06; Admin Dose 500 MG; Start 12/03/16 at 13:00 Fluconazole (Diflucan) 100 mg DAILY GTB Last administered on 12/03/16 16:54; Admin Dose 100 MG; Start 12/03/16 at 16:00 Lansoprazole (Prevacid) 30 mg DAILY@06 GTB ; Start 12/04/16 at 06:00 Miscellaneous Information (*Rx Drug Level Order Reminder*) 1 ONCE ONCE XX ; Start 12/04/16 at 02:00; Stop 12/04/16 at 02:01 Metoprolol Tartrate (Lopressor) 50 mg BID PEG ; Start 12/03/16 at 21:00 Digoxin (Digoxin) 0.125 mg DAILY@13 GTB ; Start 12/04/16 at 13:00 Apixaban (Eliquis) 2.5 mg BID GTB ; Start 12/03/16 at 21:00 LEANDRO BELL MD Dec 03, 2016 20:16
[2016-12-03] MEDS: APIXABAN 5 MG TABLET GTB SCH (21:26)
[2016-12-03] MEDS: METOPROLOL 50 MG TAB PEG SCH (21:26)
--- NOTE | 2016-12-03 23:28 | PN ---
Date/Time of Note Date/Time of Note DATE: 12/03/16 TIME: 23:28 Assessment/Plan Lines/Catheters IV Catheter Type ([facility] PICC Line Hawthorne in Place (from Nrs): Yes Assessment/Plan Problems: (1) Decubitus ulcer, heel Qualifiers: Pressure ulcer stage: stage III (2) Altered level of consciousness Status: Acute Assessment/Plan Continue current management. Continue offloading of both heels. Continue dressing change left foot. Remains at risk for infection. Patient will be followed in-house. Subjective 24 Hr Interval Summary Patient was seen and examined at bedside. Patient is in no acute distress. Nonresponsive to verbal command. Exam/Review of Systems Vital Signs Vitals Vital Signs Date Time Temp Pulse Resp B/P Pulse Ox O2 Delivery O2 Flow Rate FiO2 12/04/16 16:31 97.9 83 18 122/78 96 12/04/16 15:55 2.0 12/04/16 09:29 Nasal Cannula Intake and Output 12/03/16 12/03/16 12/04/16 15:00 23:00 07:00 Intake Total 700 ml 300 ml 670 ml Output Total 600 ml 650 ml Balance 100 ml 300 ml 20 ml Exam Free Text/Dictation No major changes noted on examination today. Continues to have heel elevators on both feet. Ulceration is unchanged on the left heel. No new ulceration noted bilateral feet. Pedal pulses remain weak but palpable with increased temperature gradient. No other changes noted on examination. Labs reviewed. Results Result Diagram: 12/04/16 0540 12/04/16 0540 LEON FLYNN DPM Dec 03, 2016 23:28
[2016-12-04] VITALS (12 sets, daily range): BP systolic 112–139; BP diastolic 67–88; PULSE 77–98; RESP 18–24
[2016-12-04] MEDS: GENTAMICIN 80 MG/NS (PMX) 50 ML IVPB SCH (03:04)
[2016-12-04] MEDS: LANSOPRAZOLE 30 MG CAP GTB SCH (05:37)
--- NOTE | 2016-12-04 06:49 | PN ---
DATE: 12/03/2016 SUBJECTIVE: Patient seen, appears to be more alert. Family is trying to feed her but already. She has a G-tube feeding at 50 mL and she is tolerating it well. I told the daughter not to push the f ood as that patient is currently pocketing food so I am concerned about aspiration. The patient ove rall remains stable. I appreciate Dr. Bernadine Fragoso's input as he recommended against a brace to the le ft wrist since patient has a wrist contraction likely from a stroke and if you put a brace on it may cause pressure ulceration over the volar aspect. I explained that to the daughter. In addition, t he patient had episodes of atrial fibrillation with rapid ventricular response, currently in sinus w ith frequent PVCs. Dr. Clancy is aware. I discussed with him also anticoagulation. PHYSICAL EXAMINATION: VITAL SIGNS: T-max 99.2. That was yesterday at midnight. Current vital signs: Temperature 97.9, p ulse 87, respirations 18, blood pressure 125/74, saturation 97% on 2 liters. GENERAL: No acute distress. HEENT: Normocephalic, atraumatic. The patient is pale. CARDIOVASCULAR: S1 and S2. Regular rate. LUNGS: Clear. ABDOMEN: Soft. G-tube in place. EXTREMITIES: No clubbing, cyanosis, or edema. LABORATORY DATA: White count 9.4, hemoglobin 9.7, hematocrit 30, platelet count 235 with normal dif ferential. Chemistry: Sodium is 142, potassium 3.8, chloride 111, bicarbonate 25, BUN is 26, creat inine 0.72, glucose 151. Phosphorus was low at 1.5. Albumin is low at 2.3. Urine normal. UA on a dmission was positive for Proteus mirabilis, sensitive to gentamicin. MEDICATIONS: 1. Digoxin 0.125 daily was to be started. 2. Prevacid 30 mg daily. 3. Lopressor 50 b.i.d. 4. Eliquis 2.5 b.i.d. 5. Diflucan 100 mg daily. 6. Flagyl 500 t.i.d. 7. Gentamicin IV dose per pharmacy. 8. Reglan 5 mg IV t.i.d. 9. Gentamicin p.r.n. 10. Zofran p.r.n. 11. Tylenol p.r.n. 12. [place] p.r.n. 13. Morphine p.r.n. 14. Colace p.r.n. 15. Albuterol and Atrovent p.r.n. ASSESSMENT AND PLAN: This is an unfortunate 81-year-old female with history of cereb rovascular accident, debilitated state, dysphagia, hypertension and paroxysmal atrial fibrillation, left hemiplegia, and carotid stenosis who presented with encephalopathy, dehydration, acute renal fa ilure and left heel wound. 1. Respiratory: Stable. I am concerned about aspiration, not to overfeed by mouth just for oral gr atification. The case discussed with daughter. Continue O2 support and observe. If he patient is febrile, we will panculture her and obtain a chest x-ray. 2. Cardiovascular: Patient with frequent PVCs and episodes of paroxysmal atrial fibrillation, now on blood thinners with Eliquis. Continue beta sandip, digoxin and monitor with them in the telemet ry unit for 1 more day at least. 4. Gastrointestinal: Status post G-tube placement, tolerating diet well. Continue Reglan for anot her day. 5. Infectious disease: Continue gentamicin for urinary tract infection. 6. Left heel wound: Continue offloading dietitian support and vitamins. 7. Disposition: Soon to longterm facility. 8. Left wrist contracture: Supportive care. No brace as she may develop a pressure ulcer. We rand lawrence follow closely. Dictated By: SHAWNA DONALD/RAQUEL Conf#: [id number] DID#: [id number]
[2016-12-04 07:24] LABS: POTASSIUM 3.9 mmol/L (3.5-5.1)
[2016-12-04 07:26] LABS: CREATININE 0.59 mg/dl (0.44-1.00)
[2016-12-04 07:27] LABS: ALBUMIN/GLOBULIN RATIO 0.66; CALCIUM 7.7 mg/dl (8.4-10.2)
[2016-12-04 08:16] LABS: WHITE BLOOD COUNT 8.8 10^3/ul (4.8-10.8)
[2016-12-04 08:17] LABS: BASOPHILS % 0.2 % (0.0-2.0); EOSINOPHILS % 0.8 % (0.0-7.0); HEMATOCRIT 26.7 % (37.0-47.0); HEMOGLOBIN 8.6 g/dl (12.0-16.0); LYMPHOCYTES % 22.3 % (15.0-51.0); MEAN CORPUSCULAR HEMOGLOBIN 19.9 pg (29.0-33.0); MEAN CORPUSCULAR HGB CONC 32.2 g/dl (32.0-37.0); MEAN CORPUSCULAR VOLUME 61.8 fl (82.0-101.0); MONOCYTE # 0.8 10^3/ul (0.3-0.9); MONOCYTES % 9.2 % (0.0-11.0); NEUTROPHIL # 5.9 10^3/ul (1.6-7.5); NEUTROPHILS % 66.9 % (39.0-77.0); PLATELET COUNT 215 10^3/UL (140-440); RED BLOOD COUNT 4.32 10^6/ul (4.20-5.40); RED CELL DISTRIBUTION WIDTH 19.8 % (11.5-14.5); UNCORRECTED WBC 8.8 10^3/ul (4.8-10.8)
[2016-12-04 08:19] LABS: EOSINOPHILS # 0.1 10^3/ul (0.0-0.5)
[2016-12-04] MEDS: METOCLOPRAMIDE 10 MG INJ IV SCH ×3 (09:12→21:14)
[2016-12-04] MEDS: METOPROLOL 50 MG TAB PEG SCH ×2 (09:12→21:13)
[2016-12-04] MEDS: metroNIDAZOLE 500 MG TAB GTB SCH ×3 (09:12→21:13)
[2016-12-04] MEDS: APIXABAN 5 MG TABLET GTB SCH ×2 (09:12→21:13)
[2016-12-04] MEDS: FLUCONAZOLE 100 MG TAB GTB SCH (09:12)
--- NOTE | 2016-12-04 12:03 | CONS ---
Date/Time of Note Date/Time of Note DATE: 12/04/16 TIME: 12:02 Assessment/Plan Assessment/Plan Additional Assessment/Plan Impression: 1. Dysphagia,s/p PEG 2. protein calorie malnutrition 3. Arrhythmia: stable 4. Persistent leukocytosis with remote history of C. diff. 5. Urinary tract infection. 6. Dehydration. REcommendation: 1. continue Megace to stimulate appetite 2. continue current dysphagia diet 3. f/u calorie count 4. f/u stool for C. difficile. 5. continue current abx per pcp and ID 6.resume feeding,increase it gradually as per dietitian 7.aspiration precaution,especially when fed through mouth Consultation Date/Type/Reason Admit Date/Time Nov 21, 2016 at 23:08 Type of Consultation: GI 24 HR Interval Summary Constitutional: no complaints Exam/Review of Systems Vital Signs Vitals Vital Signs Date Time Temp Pulse Resp B/P Pulse Ox O2 Delivery O2 Flow Rate FiO2 12/04/16 11:50 98.0 78 20 139/70 99 12/04/16 09:29 Nasal Cannula 2.0 Intake and Output 12/03/16 12/03/16 12/04/16 15:00 23:00 07:00 Intake Total 700 ml 300 ml 670 ml Output Total 600 ml 650 ml Balance 100 ml 300 ml 20 ml Exam Constitutional: alert, oriented, well developed Psych: nl mood/affect, no complaints Head: atraumatic, normocephalic Eyes: EOMI, PERRL, nl conjunctiva, nl lids, nl sclera ENMT: nl external ears & nose, nl lips & teeth, nl nasal mucosa & septum Neck: non-tender, supple Respiratory: clear to auscultation, normal air movement Cardiovascular: nl pulses, regular rate and rhythm Gastrointestinal: nl liver, spleen, non-tender, soft Musculoskeletal: nl extremities to inspection, nl gait and stance Extremities: normal pulses Neurological: PROCESS VALIDATION ENGINEER II-XII intact, nl mental status, nl speech, nl strength Skin: nl turgor, No rash or lesions Lymph: nl lymph nodes Results Result Diagram: 12/04/16 0540 12/04/16 0540 Results 24 hrs Laboratory Tests Test 12/04/16 01:35 12/04/16 05:40 Gentamicin Level Trough 1.2 Alanine Aminotransferase (ALT/SGPT) 24 Albumin 2.0 L Albumin/Globulin Ratio 0.66 Alkaline Phosphatase 77 Anion Gap 25 #H Aspartate Amino Transf (AST/SGOT) 33 Basophils # 0.0 Basophils % 0.2 Blood Urea Nitrogen 24 H Calcium Level 7.7 L Carbon Dioxide Level 23 Chloride Level 111 H Creatinine 0.59 Direct Bilirubin 0.00 Eosinophils # 0.1 Eosinophils % 0.8 Globulin 3.00 Glucose Level 152 Hematocrit 26.7 L Hemoglobin 8.6 L Indirect Bilirubin 0.0 Lymphocytes # 2.0 Lymphocytes % 22.3 Magnesium Level 2.0 Mean Corpuscular Hemoglobin 19.9 L Mean Corpuscular Hemoglobin Concent 32.2 Mean Corpuscular Volume 61.8 L Mean Platelet Volume Monocytes # 0.8 Monocytes % 9.2 Neutrophils # 5.9 Neutrophils % 66.9 Nucleated Red Blood Cells # 0.0 Nucleated Red Blood Cells % 0.0 Phosphorus Level 1.4 L Platelet Count 215 Potassium Level 3.9 Red Blood Count 4.32 Red Cell Distribution Width 19.8 H Sodium Level 155 H Total Bilirubin 0.0 L Total Protein 5.0 L White Blood Count 8.8 Medications Medications Current Medications Ondansetron HCl (Zofran Inj) 4 mg Q6H PRN IV NAUSEA AND/OR VOMITING; Start at 23:30 Acetaminophen (Tylenol Tab) 650 mg Q6H PRN PO PAIN LEVEL 1-3 OR FEVER; Start at 23:30 Acetaminophen/ Hydrocodone Bitart ([place] (5/325)) 1 tab Q6H PRN PO PAIN LEVEL 4 -6; Start 11/21/16 at 23:30 Morphine Sulfate (morphine) 2 mg Q4H PRN IV PAIN LEVEL 7-10; Start 11/21/16 at 23:30 Docusate Sodium (Colace) 100 mg Q12H PRN PO CONSTIPATION; Start 11/21/16 at 23: 30 Gentamicin Sulfate (Gentamicin Iv Per Pharmacy) GENTAMICIN PER PHARMACY NOTE XX ; Start 11/23/16 at 15:00 IV Flush (NS 10 ml) 10 ml PRN PRN IV IV PROTOCOL; Start 11/25/16 at 14:00 Metoclopramide HCl 5 mg 5 mg TID IV Last administered on 12/04/16t 09:12; Admin Dose 5 MG; Start 11/26/16 at 21:00 Gentamicin Sulfate (Gentamicin) 50 ml @ 100 mls/hr Q36H IVPB Last administered on 12/04/16 03:04; Admin Dose 100 MLS/HR; Start 11/28/16 at 03:00 Metronidazole (Flagyl) 500 mg TID GTB Last administered on 12/04/16 09:12; Admin Dose 500 MG; Start 12/03/16 at 13:00 Fluconazole (Diflucan) 100 mg DAILY GTB Last administered on 12/04/16 09:12; Admin Dose 100 MG; Start 12/03/16 at 16:00 Lansoprazole (Prevacid) 30 mg DAILY@06 GTB Last administered on 12/04/16 05:37 ; Admin Dose 30 MG; Start 12/04/16 at 06:00 Metoprolol Tartrate (Lopressor) 50 mg BID PEG Last administered on 12/04/16 09: 12; Admin Dose 50 MG; Start 12/03/16 at 21:00 Digoxin (Digoxin) 0.125 mg DAILY@13 GTB ; Start 12/04/16 at 13:00 Apixaban (Eliquis) 2.5 mg BID GTB Last administered on 12/04/16 09:12; Admin Dose 2.5 MG; Start 12/03/16 at 21:00 LEANDRO BELL MD Dec 04, 2016 12:03
[2016-12-04] MEDS: DIGOXIN 0.125 MG TAB GTB SCH (12:51)
[2016-12-04] MEDS ORDERED: POTASSIUM PHOSPHATE 20 MEQ in SOD CHLORIDE 0.9% 250 ML IVPB ONE (13:30)
--- NOTE | 2016-12-04 13:44 | PN ---
DATE: 12/04/2016 SUBJECTIVE: Patient yesterday, she was pocketing her food. Some concern about aspiration. As I no calos, the patient has a low grade fever overnight, 99.5 throughout the night. Upon evaluation, the patient remains unresponsive. She does stare at you. PHYSICAL EXAMINATION: VITAL SIGNS: Temperature 98, pulse 77, respirations 20, blood pressure 139/70, saturation 99% on 2 liters. GENERAL: The patient is no acute distress. the patient is frail, pale. CARDIOVASCULAR: S1 and S2, regular rate. LUNGS: Clear. Poor S4 respiratory effort otherwise. ABDOMEN: Soft. G-tube in place. EXTREMITIES: No clubbing, cyanosis. There is upper extremity trace edema and left wrist is contract ed. LABORATORY DATA: White count is 8.8, hemoglobin 8.6, a decrease in H and H, hematocrit 27, platelet count ____ with normal differential. Sodium is high today at 155, potassium 3.9, chloride 111, bic arbonate 23, BUN is 24, creatinine 0.59, glucose 152. Phosphorus is low at 1.4 as well. Albumin is low at 2.0. UA on admission was positive. MRSA of the nares was negative. CURRENT MEDICATIONS: Include: 1. Digoxin 0.125 daily. 2. Prevacid 30 mg daily. 3. Lopressor 50 b.i.d. 4. Eliquis 2.5 b.i.d. 5. Diflucan 100 mg daily. 6. Flagyl 500 t.i.d. 7. Gentamicin dosed per pharmacy. 8. Reglan 5 mg IV t.i.d. 9. Zofran p.r.n. 10. Tylenol p.r.n. 11. [place] p.r.n. 12. Morphine p.r.n. 13. Colace p.r.n. 14. Albuterol and Atrovent p.r.n. ASSESSMENT AND PLAN: This is an 81-year-old female with history of cerebrovascular, debilitated state, dysphagia, hypertension, paroxysmal atrial fibrillation, left hemiplegia, carotid stenosis who presented with encephalopathy, dehydration, acute renal failure and left heel wound. 1. Respiratory, I am concerned about aspiration. As patient had a low-grade fever, we basically wi ll hold all feeding for now. Will obtain a chest x-ray and monitor fever curve. Continue O2 suppo rt. 2. Cardiovascular. The patient with PVCs and paroxysmal atrial fibrillation. Continue digoxin, Lo pressor and Eliquis for anticoagulation. Case discussed with Dr. Clancy. 3. Gastrointestinal. Continue with G tube feeding, as she is tolerating it well. May taper off Re glan. 4. Infectious disease. Remains on gentamicin for UTI. Repeat urine studies and follow up with est x-ray results. We will follow. 5. Left heel wound. Continue offloading and dietary support and vitamins. 6. Disposition, soon back to half-way facility once afebrile. 7. Renal. The patient with hypernatremia. We will start the patient on free water, potassium and phosphorus supplements will be provided. We will follow. 8. 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 Supportive care. 9. Overall, the patient with poor quality of life, bedridden state. Long-term prognosis is not damien y good. DISPOSITION: [facility]. We will follow. Dictated By: SHAWNA DONALD/RAQUEL Conf#: [id number] DID#: [id number]
--- NOTE | 2016-12-04 17:21 | RADRPT ---
PROCEDURE: XR Chest. CLINICAL INDICATION: Aspiration pneumonia. TECHNIQUE: Single frontal view of the chest was obtained COMPARISON: Chest x-ray 11/25/2016 01:37 p.m. FINDINGS: There are atherosclerotic calcifications in the aortic arch. There are degenerative osteophytes in the thoracic spine. The soft tissues are generous. The heart, pulmonary vasculature, lung jade an d pleural spaces are normal. There is a suboptimal inspiratory effort. Monitoring electrodes are dr aped across the chest. A PICC line catheter is noted in place. IMPRESSION: 1. Stable chest x-ray compared to 11/25/2016. 2. 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 3. A PICC line catheter enters right arm with its tip in the superior vena cava. RPTAT:AAJJ Physician Yee Date Time Electronically viewed and signed by Brady Wise Physician on 12/04/2016 17:21 ARCADIO/
--- NOTE | 2016-12-04 20:04 | PN ---
Date/Time of Note Date/Time of Note DATE: 12/04/16 TIME: 20:02 Assessment/Plan Lines/Catheters IV Catheter Type (from Nrs): PICC Line Hawth[place] in Place (from Nrs): Yes Assessment/Plan Problems: (1) Decubitus ulcer, heel Qualifiers: Pressure ulcer stage: stage III (2) Altered level of consciousness Status: Acute Assessment/Plan Continue current management. Patient will be followed in-house. Subjective 24 Hr Interval Summary Patient was seen and examined at bedside. She lays supine in bed in no acute distress. Continues to remain nonresponsive to verbal command. Patient appears to be debilitated. Exam/Review of Systems Vital Signs Vitals Vital Signs Date Time Temp Pulse Resp B/P Pulse Ox O2 Delivery O2 Flow Rate FiO2 12/04/16 16:31 97.9 83 18 122/78 96 12/04/16 15:55 2.0 12/04/16 09:29 Nasal Cannula Intake and Output 12/03/16 12/03/16 12/04/16 15:00 23:00 07:00 Intake Total 700 ml 300 ml 670 ml Output Total 600 ml 650 ml Balance 100 ml 300 ml 20 ml Exam Free Text/Dictation Patient is in no acute distress laying supine in bed. Nonresponsive to verbal command. Heels are elevated on heel protectors bilaterally. There is no sign of infection noted on examination of both feet. No new ulcerations noted. Dorsalis pedis and posterior tibial pulses weakly palpable. No other changes noted on examination. Labs reviewed. Results Result Diagram: 12/04/16 0540 12/04/16 0540 LEON FLYNN DPM Dec 04, 2016 20:04
[2016-12-04 23:30] LABS: ADD UMIC YES; URINE BILIRUBIN (Dip) NEGATIVE (NEGATIVE); URINE BLOOD (Dip) 1+ (NEGATIVE); URINE COLOR LT. YELLOW (YELLOW); URINE GLUCOSE (Dip) NEGATIVE (NEGATIVE); URINE KETONES (Dip) NEGATIVE (NEGATIVE); URINE LEUKOCYTE ESTERASE (Dip) TRACE (NEGATIVE); URINE NITRITE (Dip) NEGATIVE (NEGATIVE); URINE TOTAL PROTEIN (Dip) TRACE (NEGATIVE); URINE UROBILINOGEN (Dip) 0.2 E.U./dL (0.1-1.0)
[2016-12-05] VITALS (11 sets, daily range): BP systolic 118–158; BP diastolic 58–92; PULSE 75–107; RESP 18–20
[2016-12-05 00:11] LABS: BACTERIA,URINE MODERATE; SQUAMOUS EPITHELIAL CELL,UR MANY
[2016-12-05] MEDS: LANSOPRAZOLE 30 MG CAP GTB SCH (05:45)
[2016-12-05 07:05] LABS: BASOPHILS % 0.4 % (0.0-2.0); EOSINOPHILS % 0.3 % (0.0-7.0); HEMATOCRIT 28.2 % (37.0-47.0); HEMOGLOBIN 9.1 g/dl (12.0-16.0); LYMPHOCYTES # 2.3 10^3/ul (0.8-2.9); LYMPHOCYTES % 22.1 % (15.0-51.0); MEAN CORPUSCULAR HEMOGLOBIN 20.8 pg (29.0-33.0); MEAN CORPUSCULAR HGB CONC 32.5 g/dl (32.0-37.0); MEAN CORPUSCULAR VOLUME 64.2 fl (82.0-101.0); MEAN PLATELET VOLUME 8.8 fl (7.4-10.4); MONOCYTES % 9.4 % (0.0-11.0); NEUTROPHILS % 67.8 % (39.0-77.0); PLATELET COUNT 249 10^3/UL (140-440); RED BLOOD COUNT 4.39 10^6/ul (4.20-5.40); RED CELL DISTRIBUTION WIDTH 20.1 % (11.5-14.5); UNCORRECTED WBC 10.3 10^3/ul (4.8-10.8); WHITE BLOOD COUNT 10.3 10^3/ul (4.8-10.8)
[2016-12-05 07:08] LABS: CONDITION 1; LH ANALYZER COMMENTS 1
[2016-12-05 07:26] LABS: POTASSIUM 4.5 mmol/L (3.5-5.1)
[2016-12-05 07:28] LABS: CREATININE 0.7 mg/dl (0.44-1.00)
[2016-12-05 07:29] LABS: CALCIUM 8.4 mg/dl (8.4-10.2)
[2016-12-05 07:47] LABS: PHOSPHORUS 2.3 mg/dl (2.5-4.9)
[2016-12-05] MEDS: APIXABAN 5 MG TABLET GTB SCH ×2 (09:51→21:45)
[2016-12-05] MEDS: FLUCONAZOLE 100 MG TAB GTB SCH (09:51)
[2016-12-05] MEDS: METOCLOPRAMIDE 10 MG INJ IV SCH (09:52)
[2016-12-05] MEDS: metroNIDAZOLE 500 MG TAB GTB SCH ×3 (09:52→21:45)
[2016-12-05] MEDS: METOPROLOL 50 MG TAB PEG SCH ×2 (09:52→21:45)
[2016-12-05] MEDS: DIGOXIN 0.125 MG TAB GTB SCH (12:25)
--- NOTE | 2016-12-05 14:41 | PN ---
DATE: 12/05/2016 SUBJECTIVE: The patient lying in bed comfortably. Again, she does not really respond to me, which has been like that for quite some time. PHYSICAL EXAMINATION: VITAL SIGNS: The patient's T max is 99.3. The patient otherwise is afebrile. Temperature now 98.5 , pulse 90, respirations 20, blood pressure 119/80, saturation 98% on 2 liters nasal cannula. GENERAL: The patient is in no acute distress. HEENT: Normocephalic, atraumatic. The patient is pale. Decreased dentition. CARDIOVASCULAR: S1 and S2, regular rate. LUNGS: Clear. ABDOMEN: Soft. G-tube is in place. EXTREMITIES: Some contractures of her wrists. Otherwise, no clubbing, cyanosis, or edema. She jasso s have left heel wound. LABORATORY DATA: White count is 10.3, hemoglobin 9.1, hematocrit 28, platelet count 249, neutrophil s 68%, ____ 22%. Chemistry: Sodium 139, potassium 4.5, chloride 105, bicarbonate 26, BUN is 27, cr eatinine 0.7, glucose 146, phosphorus slightly low at 2.3. Repeat UA done yesterday shows trace sourav kocyte esterase and WBCs only 5 to 10, much improved. MRSA screening on 11/22/2016 was negative. C hest x-ray, which I ordered because of the low grade fever showed stable chest x-ray compared to . There is ectasia with atherosclerotic changes to the left side of the thoracic aorta. MEDICATIONS: Reviewed, include the followin. Digoxin 0.25 daily. 2. ____ mg daily. 3. Lopressor 50 b.i.d. 4. Eliquis 2.5 b.i.d. 5. Diflucan 100 mg daily. 6. Flagyl 500 t.i.d. 7. Gentamicin q. 36 hours. 8. Reglan 5 mg t.i.d. 9. Zofran p.r.n. 10. Tylenol p.r.n. 11. [place] p.r.n. 12. Morphine p.r.n. 13. Colace p.r.n. 14. Albuterol and Atrovent p.r.n. ASSESSMENT AND PLAN: This is an 81-year-old female with history of cerebrovascular a ccident, debilitated, dysphagia, hypertension, paroxysmal atrial fibrillation, left hemiplegia, hsu tid stenosis who presented with encephalopathy, dehydration, acute renal failure and left heel wound . 1. Respiratory. Stable. Continue aspiration precautions, would recommend n.p.o. for now as patien t always appears quite lethargic. 2. Cardiovascular. Patient with PVCs and paroxysmal atrial fibrillation, was started back on blood thinners, on Eliquis, dosed per weight and age. Continue digoxin and Lopressor. 3. Gastrointestinal, status with G-tube feeding, discontinue Reglan and observe. 4. Infectious disease. The patient with urinary tract infection on gentamicin. Urine is better. Continue gentamicin for a few more days. Also empirically on Flagyl as the patient previously I guerrero oseive, had history of Clostridium difficile. 5. Left heel wound. I appreciate Dr. Cason's input. Continue, offloading, nutritional support. 6. Renal. Monitor electrolytes. 7. Hypernatremia, resolved, as patient has been receiving free water flushes from the G-tube. 8. History of cerebrovascular accident with contractures. Continue supportive care. 9. Overall very debilitated. DISPOSITION: Back to [facility] facility soon. I left a message at this time regarding discha rge planning. I am awaiting response. Continue gastrointestinal prophylaxis with Prevacid. Keanu lawrence follow. Dictated By: SHAWNA DONALD/RAQUEL Conf#: [id number] DID#: [id number]
[2016-12-05] MEDS: GENTAMICIN 80 MG/NS (PMX) 50 ML IVPB SCH (15:57)
[2016-12-06] VITALS (13 sets, daily range): BP systolic 102–142; BP diastolic 65–89; PULSE 84–110; RESP 16–22
[2016-12-06] MEDS: LANSOPRAZOLE 30 MG CAP GTB SCH (05:31)
[2016-12-06] MEDS: metroNIDAZOLE 500 MG TAB GTB SCH ×3 (09:06→21:15)
[2016-12-06] MEDS: APIXABAN 5 MG TABLET GTB SCH ×2 (09:06→21:16)
[2016-12-06] MEDS: FLUCONAZOLE 100 MG TAB GTB SCH (09:06)
[2016-12-06] MEDS: METOPROLOL 50 MG TAB PEG SCH ×2 (09:07→21:15)
[2016-12-06] MEDS: DIGOXIN 0.125 MG TAB GTB SCH (12:49)
--- NOTE | 2016-12-06 17:15 | PN ---
DATE: 12/06/2016 CARDIOLOGY FOLLOWUP SUBJECTIVE: Discussed with Dr. Carolina, discussed with the staff. The patient's rhythm strip was rev iewed. Remains in sinus rhythm with frequent PACs. Patient remains nonverbal. MEDICATIONS: Reviewed as per medical reconciliation, personally reviewed. PHYSICAL EXAMINATION: VITAL SIGNS: Temperature 99.3, heart rate of 88, blood pressure 102/65, respiratory rate of 22. HEENT: Normocephalic, atraumatic. Pupils are equal. CARDIOVASCULAR: Regular rate and rhythm, systolic murmur. PULMONARY: With no wheezes anteriorly. Minimal rhonchi. GASTROINTESTINAL: Soft, status post PEG placement. EXTREMITIES: Trivial edema. NEUROLOGIC: Opens her eyes and does not answer questions. LABORATORY: WBC of 7.3, hemoglobin 9.1, platelets of 249. Sodium 139, potassium 4.5. BUN of 27, creatinine 0.7, glucose of 146. Mag is 2. ASSESSMENT AND PLAN: 1. Paroxysmal atrial fibrillation, currently in sinus rhythm. 2. History of deep venous thrombosis in the past. 3. Mildly abnormal troponin secondary to above, consistent with false positive troponin. 4. Renal failure normalized now. 5. Electrolyte abnormality has been corrected. 6. Dysphagia with PEG placement. 7. Hypertension. RECOMMENDATIONS: 1. We will continue with metoprolol 50 b.i.d. 2. Electrolytes: Potassium and magnesium to be replaced as needed. 3. We will continue with the Eliquis as long as she can tolerate no bleeding risk. Dictated By: REBECA SOLIMAN MD AV/RAQUEL Conf#: [id number] DID#: [id number] CC: SHAWNA CAROLINA MD;*[facility]*
--- NOTE | 2016-12-06 18:04 | PN ---
DATE: 12/06/2016 SUBJECTIVE: Patient seen at bedside. Patient lying, mouth open, not very responsive to verbal stimu li. I had a long conversation with the son regarding the patient's condition as I was telling him t hat I was quite concerned about her condition. She remains quite encephalopathic. I explained to h im that she definitely needs to be kept n.p.o., and she needs to be suctioned frequently as she has difficulty swallowing her secretions. I am concerned about aspiration. We will follow. PHYSICAL EXAMINATION: VITAL SIGNS: Temperature 99.3. She is running a temperature of 99 the past day, pulse 84, respirat ions 22, blood pressure 112/65, saturation 97% on 2 liters nasal cannula. GENERAL: The patient is frail, pale. HEENT: Temporal wasting, decreased dentition. CARDIOVASCULAR: S1, S2, regular rate. LUNGS: Decreased bilaterally. Upper airway rhonchi is heard. ABDOMEN: Soft, nontender. G-tube is in place. EXTREMITIES: There is no clubbing, cyanosis, or edema. Left heel wound. LABORATORY DATA: No new labs today. White count was 10.3. CULTURES: Urine culture on 12/04 was negative. MRSA screening was negative. MEDICATIONS: 1. Digoxin 0.25 daily. 2. Prevacid 30 mg daily. 3. Lopressor 50 b.i.d. 4. Eliquis 2.5 b.i.d. 5. Diflucan 1 mg daily. 6. Flagyl 500 t.i.d. 7. Gentamicin IV dosed per pharmacy. 8. Zofran p.r.n. 9. Tylenol p.r.n. 10. [place] p.r.n. 11. Morphine p.r.n. 12. Colace p.r.n. 13. Albuterol and Atrovent p.r.n. ASSESSMENT AND PLAN: This is a very unfortunate, very sick 81-year-old female with p ast medical history of CVA, overall very debilitated, dysphagia, hypertension, paroxysmal atrial fib rillation, carotid stenosis, who presents encephalopathic, dehydrated, with acute renal failure and left heel wound. 1. Respiratory. Continue to monitor. Continue aggressive pulmonary care including suctioning, bismark athing treatment, and oxygen support. I am concerned about aspiration. We will repeat chest x-ray in the a.m. We will follow. 2. Cardiovascular. Patient with paroxysmal atrial fibrillation, back on Eliquis. Continue digoxin , beta blockers. Cardiology is following. 3. Gastrointestinal. Continue G-tube feedings as tolerated. I discontinued patient's Reglan. 4. Infectious disease. Patient initially presented with urinary tract infection. Organism is Prot eus mirabilis sensitive to gentamicin. Now I am concerned about possible aspiration pneumonia as we ll. May consider to broaden the patient's antibiotic regimen. Will follow. Will discontinue genta micin for now. Continue Flagyl and Diflucan. 5. Left heel wound. Continue offloading. Nutritional support. Air mattress bed. 6. Renal. Monitor electrolytes. 7. History of cerebrovascular accident. 8. Continue supportive care. Overall, very debilitated. Prognosis remains guarded. I spoke with the son regarding patient's code status. He agreed. He does not want her to suffer, and he agreed to make her DNR/DNI. I repeated those questions a few times to make sure he understands, and patien t will be made DNR/DNI. No heroic measures. 9. Malnutrition with albumin of 2.0, moderate to severe. 10. Condition is guarded. We will follow. Dictated By: SHAWNA DONALD/RAQUEL Conf#: [id number] DID#: [id number]
[2016-12-07] VITALS (12 sets, daily range): BP systolic 117–146; BP diastolic 59–82; PULSE 90–104; RESP 16–20
[2016-12-07] MEDS: LANSOPRAZOLE 30 MG CAP GTB SCH (06:00)
[2016-12-07 07:42] LABS: BASOPHILS % 0.2 % (0.0-2.0); HEMATOCRIT 27.6 % (37.0-47.0); HEMOGLOBIN 8.9 g/dl (12.0-16.0); LYMPHOCYTES # 1.5 10^3/ul (0.8-2.9); MEAN CORPUSCULAR HEMOGLOBIN 20.9 pg (29.0-33.0); MEAN CORPUSCULAR HGB CONC 32.4 g/dl (32.0-37.0); MEAN CORPUSCULAR VOLUME 64.6 fl (82.0-101.0); MONOCYTES % 8.6 % (0.0-11.0); NEUTROPHIL # 8.8 10^3/ul (1.6-7.5); NEUTROPHILS % 78.2 % (39.0-77.0); PLATELET COUNT 261 10^3/UL (140-440); RED BLOOD COUNT 4.27 10^6/ul (4.20-5.40); RED CELL DISTRIBUTION WIDTH 20.5 % (11.5-14.5); UNCORRECTED WBC 11.2 10^3/ul (4.8-10.8); WHITE BLOOD COUNT 11.2 10^3/ul (4.8-10.8)
[2016-12-07 07:46] LABS: CONDITION 1; LH ANALYZER COMMENTS 1
[2016-12-07 07:55] LABS: PHOSPHORUS 1.7 mg/dl (2.5-4.9)
[2016-12-07 08:01] LABS: POTASSIUM 4.6 mmol/L (3.5-5.1)
[2016-12-07 08:03] LABS: CREATININE 0.63 mg/dl (0.44-1.00)
[2016-12-07 08:04] LABS: CALCIUM 8.6 mg/dl (8.4-10.2)
[2016-12-07] MEDS: FLUCONAZOLE 100 MG TAB GTB SCH (08:06)
[2016-12-07] MEDS: APIXABAN 5 MG TABLET GTB SCH ×2 (08:06→20:10)
[2016-12-07] MEDS: metroNIDAZOLE 500 MG TAB GTB SCH ×2 (08:06→13:18)
[2016-12-07] MEDS: METOPROLOL 50 MG TAB PEG SCH ×2 (08:07→20:11)
--- NOTE | 2016-12-07 09:08 | RADRPT ---
PROCEDURE: XR Chest. CLINICAL INDICATION: Dyspnea TECHNIQUE: Single frontal chest x-ray. COMPARISON: 12/04/2016 FINDINGS: The lungs are clear. No focal opacification is seen. Right PICC line remains in satisfactory positi on. There is tortuous thoracic aorta with atherosclerotic calcifications. The cardiomediastinal coreen houette is unremarkable. The osseous structures are unremarkable. IMPRESSION: 1. No acute infiltrates. 2. Tortuous thoracic aorta with atherosclerotic calcifications. 3. Right PICC line remains in satisfactory position. RPTAT: BB .Julio César Gonsales MD, MD Date Time Electronically viewed and signed by .Julio César Gonsales MD, on 12/07/2016 09:08 .O/
[2016-12-07] MEDS: DIGOXIN 0.125 MG TAB GTB SCH (13:19)
--- NOTE | 2016-12-07 16:34 | PN ---
DATE: 12/07/2016 SUBJECTIVE: Patient is seen, remains very weak. Still does not respond too much from verbal stimul ation, eyes are open. Also, she does not resist much when I suctioned her mouth to clear secretions . It suggested overall the patient had a pretty significant stroke in the past. I noted that case management input regarding transfer back to [place], some financial issues that were noted to be an issue. I called the son regarding discharge planning, which will be soon. VITAL SIGNS: Temperature earlier 97.7, pulse 90, respirations 18, blood pressure 137/78, saturation 100% on 2 liters. GENERAL: The patient remains frail, pale. HEENT: Decreased dentition. CARDIOVASCULAR: S1 and S2. LUNGS: Decreased bilaterally. ABDOMEN: Soft. G-tube in place. EXTREMITIES: No clubbing, cyanosis, or edema. LABORATORY DATA: White count is slightly high at 11.2, hemoglobin 8.9, hematocrit 28, platelet coun t 261, neutrophils 78%, lymphocytes 13%. Sodium 136, potassium 4.6, chloride 108, bicarbonate 28, B UN 32, creatinine 0.63, glucose of 166. Urine culture on 12/04/2016 was negative. Chest x-ray done today shows no acute infiltrate. Tortuous thoracic aorta with atherosclerotic calc ification, right PICC line remains in satisfactory position. MEDICATIONS: Include the followin. Digoxin 0.5 daily. 2. Prevacid 30 mg daily. 3. Lopressor 50 b.i.d. 4. Eliquis 2.5 b.i.d. 5. Diflucan 100 mg daily. 6. Flagyl 500 t.i.d. 7. Zofran p.r.n. 8. Tylenol p.r.n. 9. [place] p.r.n. 10. Morphine p.r.n. 11. Colace. 12. Albuterol. 13. Atrovent p.r.n. ASSESSMENT AND PLAN: This is a very unfortunate 81-year-old female with a past medic al history of cerebrovascular accident, very debilitated, dysphagia, hypertension, paroxysmal atria l fibrillation, carotid stenosis who presented with encephalopathy, dehydration, acute renal failure and left heel wound. 1. Respiratory. Continue with aggressive pulmonary care and suctioning, O2 support, aspiration pre cautions. I kept her n.p.o. Now she has a G-tube feeding. 2. Cardiovascular. Patient with paroxysmal atrial fibrillation back on Eliquis. Continue digoxin, beta blockers. Vitals are stable. 3. Gastrointestinal. Continue G-tube feeding. Continue proton pump inhibitor for gastrointestinal prophylaxis. 4. Infectious disease. We will discontinue Flagyl. Continue Diflucan. She may have some oral thr ush. Status post treatment for urinary tract infection. Monitor for any evidence of fever or worse stephy leukocytosis. 5. Left heel wound. I appreciate podiatry input and recommendations. Continue offloading, air mat tress bed and nutritional support. 6. Renal. Monitor electrolytes. 7. [facility] will be discussed with case management and so n. 8. Patient is do not resuscitate/do not intubate. 9. Condition remains guarded. Would recommend current comfort measures. The patient's do not resu scitate/do not intubate discussed with the son. We will follow. DISPOSITION: Soon. Dictated By: SHAWNA DONALD/RAQUEL Conf#: [id number] DID#: [id number]
[2016-12-08] VITALS (12 sets, daily range): BP systolic 119–166; BP diastolic 67–100; PULSE 82–125; RESP 18–20
[2016-12-08] MEDS: LANSOPRAZOLE 30 MG CAP GTB SCH (05:28)
--- NOTE | 2016-12-08 06:31 | PN ---
DATE: 12/07/2016 CARDIOLOGY FOLLOWUP SUBJECTIVE: The patient remains in sinus rhythm with frequent PVCs, but remains in sinus rhythm, no more episodes of atrial fibrillation, remains nonverbal. MEDICATIONS: Reviewed. PHYSICAL EXAMINATION: VITAL SIGNS: Temperature 98.4, heart rate of 90, blood pressure 141/82, respiration rate of 18, sat urating 94 to 100%. HEENT: Normocephalic, atraumatic. No acute distress. Pupils are equal. CARDIOVASCULAR: Regular rate and rhythm, systolic murmur. PULMONARY: With no wheezes anteriorly. GASTROINTESTINAL: Soft, status post PEG placement. EXTREMITIES: Trivial edema. NEUROLOGIC: Opens her eyes and is awake but does not answer my questions. LABORATORY DATA: WBC of 11.2, hemoglobin 8.9, platelets 261. Sodium 133, potassium 4.6, BUN of 33, creatinine 0.63, glucose 166. ASSESSMENT AND PLAN: 1. Paroxysmal atrial fibrillation, currently remains in sinus rhythm. 2. History of deep venous thrombosis, on anticoagulation now. 3. Mildly abnormal troponin secondary to above with normal LV function. Continue beta blockers. 4. Renal failure, currently . 5. Electrolyte abnormality has been corrected. 6. Dysphagia status post percutaneous endoscopic gastrostomy placement. 7. Hypertension. RECOMMENDATIONS: I will continue with the beta sandip. Digoxin will be continued as well. Antico agulation will be continued. Antibiotic as per Dr. Carolina. Dictated By: REBECA SOLIMAN MD AV/RAQUEL Conf#: [id number] DID#: [id number] CC: SHAWNA CAROLINA MD;*[facility]*
[2016-12-08 08:35] LABS: POTASSIUM 4.9 mmol/L (3.5-5.1)
[2016-12-08 08:37] LABS: CREATININE 0.64 mg/dl (0.44-1.00)
[2016-12-08 08:38] LABS: BASOPHILS % 0.5 % (0.0-2.0); CALCIUM 9.1 mg/dl (8.4-10.2); EOSINOPHILS % 0.2 % (0.0-7.0); HEMATOCRIT 30.9 % (37.0-47.0); HEMOGLOBIN 9.9 g/dl (12.0-16.0); LYMPHOCYTES % 20.5 % (15.0-51.0); MEAN CORPUSCULAR HEMOGLOBIN 20.9 pg (29.0-33.0); MEAN CORPUSCULAR HGB CONC 32.1 g/dl (32.0-37.0); MEAN CORPUSCULAR VOLUME 65.1 fl (82.0-101.0); MEAN PLATELET VOLUME 9.7 fl (7.4-10.4); MONOCYTE # 1.1 10^3/ul (0.3-0.9); MONOCYTES % 11.1 % (0.0-11.0); NEUTROPHIL # 6.5 10^3/ul (1.6-7.5); NEUTROPHILS % 67.7 % (39.0-77.0); PLATELET COUNT 371 10^3/UL (140-440); RED BLOOD COUNT 4.75 10^6/ul (4.20-5.40); RED CELL DISTRIBUTION WIDTH 21.3 % (11.5-14.5); UNCORRECTED WBC 9.6 10^3/ul (4.8-10.8); WHITE BLOOD COUNT 9.6 10^3/ul (4.8-10.8)
[2016-12-08 08:42] LABS: CONDITION 1; LH ANALYZER COMMENTS 1; SUSPECT 1
[2016-12-08 10:16] LABS: AADO2 Arterial 624.8 mmHg (7.0-24.0); Allen Test ACCEPTAB; Arterial Base Excess 1.4 mmol/L (-3.0-3); Arterial COHb 0.3 % (0.0-3.0); Arterial Fraction of Oxyhgb 87.9 % (93.0-99.0); Arterial HCO3 24.9 mmol/L (22.0-26.0); Arterial MetHb 0.1 % (0.0-1.5); Arterial Total Hemglobin 11.8 g/dl (12.0-18.0); MODE MASK - NRB
[2016-12-08] MEDS: APIXABAN 5 MG TABLET GTB SCH ×2 (10:24→21:10)
[2016-12-08] MEDS: METOPROLOL 50 MG TAB PEG SCH ×3 (10:24→21:11)
[2016-12-08] MEDS: FLUCONAZOLE 100 MG TAB GTB SCH (10:24)
--- NOTE | 2016-12-08 10:42 | PN ---
DATE: 12/08/2016 CARDIOLOGY FOLLOWUP SUBJECTIVE: Discussed with the staff. Rhythm strip was reviewed. The patient remains in sinus rhy thm, sinus tachycardia, has remained nonverbal. MEDICATIONS: Reviewed. PHYSICAL EXAMINATION: VITAL SIGNS: Temperature 97.6, heart rate of 90, blood pressure 136/85, respiration rate of 24, sat urating 100%. HEENT: Normocephalic, atraumatic. Appears to be anxious. GENERAL: Elderly, thin female. CARDIOVASCULAR: Tachycardic. PULMONARY: With no wheezes anteriorly. No rhonchi. GASTROINTESTINAL: Soft, nontender, status post PEG placement. EXTREMITIES: With no significant lower extremity edema. NEUROLOGIC: Eyes are open, but does not respond to verbal stimuli. LABORATORY: Today is not done yet. ASSESSMENT AND PLAN: 1. Paroxysmal atrial fibrillation, currently in sinus rhythm. 2. Tachycardia. 3. History of deep venous thrombosis. 4. Mildly elevated troponin with normal ventricular systolic function. 5. Electrolyte abnormalities. 6. Dysphagia, status PEG placement. 7. Hypertension. RECOMMENDATIONS: I would increase the patient's beta sandip to t.i.d. dose. Off the metoprolol. We will continue the rest of her cardiac care. Electrolytes will be corrected as needed. Antibioti c is managed as per Dr. Carolina. Dictated By: REBECA SOLIMAN MD AV/RAQUEL Conf#: [id number] DID#: [id number] CC: SHAWNA CAROLINA MD;*End*
[2016-12-08] MEDS: ACETYLCYSTEINE 20% 4 ML VIAL NEB SCH ×3 (10:46→20:54)
--- NOTE | 2016-12-08 12:13 | PN ---
DATE: 12/08/2016 SUBJECTIVE: This morning I received a call, the patient unfortunately is hypoxic. She was placed o n nonrebreather mask on 100%, but unfortunately remains hypoxic around 82. I instructed RT to perfo rm an ABG and do deep suctioning. The patient likely aspirated. I informed the son of the patient' s change in condition. His name is Philly, phone number [phone]. We discussed patient's code s tatus again and he agreed not to intubate her, or not to do any aggressive measures such as chest co mpressions. Currently awaiting ABG. RT is at bedside. PHYSICAL EXAMINATION: VITAL SIGNS: Temperature 97.8, pulse 125, respirations 24, blood pressure 126/67, saturation docume nted 75% to 84%, that was on nasal cannula earlier, now on a nonrebreather mask. We will follow wit h ABG. GENERAL: The patient's eyes are open, weak looking, on a nonrebreather mask. CARDIOVASCULAR: S1 and S2, tachycardic. LUNGS: Mild rhonchi, right greater than left. ABDOMEN: Soft, nontender. EXTREMITIES: No clubbing, cyanosis or edema. LABORATORY DATA: White count is 9.6, actually normal, hemoglobin 9.9, hematocrit 31, platelets 371, neutrophils 68%, lymphocytes 20%. Chemistry: Sodium is 129, potassium 4.9, chloride 102, bicarbon ate 27, BUN 33, creatinine 0.64, glucose 123. Phosphorus is 2.0, magnesium is 2.0. MEDICATIONS: 1. Lopressor 50 mg t.i.d. 2. Digoxin 0.125 daily. 3. Prevacid 30 mg daily. 4. Eliquis 2.5 b.i.d. 5. Diflucan 100 mg daily. 6. Zofran p.r.n. 7. Tylenol p.r.n. 8. [place] p.r.n. 9. Morphine p.r.n. 10. Colace p.r.n. 11. Albuterol and Atrovent p.r.n. ASSESSMENT AND PLAN: This is an 81-year-old female with past medical history of cere brovascular accident, very debilitated, dysphagia, hypertension, paroxysmal atrial fibrillation, car otid stenosis, who presented initially with encephalopathy, dehydration and acute renal failure, lef t heel wound, and since arrival she had a G-tube placed, and this morning unfortunately with acute r espiratory distress. 1. Respiratory. The patient is hypoxic, possible aspiration, possible mucus plug, etc. We will ob tain a stat chest x-ray, ABG, aggressive suctioning. Continue breathing treatment and place her on nonrebreather mask. May consider placing her on BiPAP. The patient is n.p.o. by mouth. She does h ave G-tube feeding. Head elevation and will follow. 2. Cardiovascular. The patient has paroxysmal atrial fibrillation on Eliquis, digoxin, beta blocke rs. Currently in sinus, but tachycardic. 3. Gastrointestinal. Continue G-tube feeding. Continue proton pump inhibitor. 4. Infectious disease. White count is normal. The patient may be re-aspirating. Follow up chest x-ray. Follow up panculture, afebrile and reassess antibiotics need. 5. Left heel wound. I appreciate podiatry followup and input. 6. Renal. Monitor electrolytes. 7. Disposition delayed to senior living as patient is now hypoxic. 8. The patient is DO NOT RESUSCITATE/DO NOT INTUBATE. I spoke with the son this morning and told him of patient's change in condition. Again, we will fol low up with current workup. We will follow. Dictated By: SHAWNA DONALD/RAQUEL Conf#: [id number] DID#: [id number]
--- NOTE | 2016-12-08 12:47 | RADRPT ---
PROCEDURE: XR Chest. CLINICAL INDICATION: Hypoxia. TECHNIQUE: Single frontal view of the chest was obtained COMPARISON: Chest x-ray 12/07/2016 0739 hours. FINDINGS: There are vascular calcifications and ectasia of the thoracic aorta. The lungs are hyperinflated wi th flattening of the diaphragms. No pleural effusion is present. There is vague increased density adjacent to the right heart were not seen on the prior study. There are degenerative osteophytes in the thoracic and lumbar spine with a levoscoliosis at the thoracolumbar junction. Monitoring elect rodes are draped across the chest. The heart is normal in size. IMPRESSION: 1. Bony hyperinflation with no evidence of CHF or acute infiltrate. 2. Atherosclerosis and ectasia of the thoracic aorta. 3. 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 4. Stable chest compared to 12/07/2016. RPTAT:AAJJ Physician Yee Date Time Electronically viewed and signed by Brady Wise Physician on 12/08/2016 12:47 [place]/
[2016-12-08] MEDS: DIGOXIN 0.125 MG TAB GTB SCH (14:17)
--- NOTE | 2016-12-08 15:55 | CONS ---
DATE OF ADMISSION: 11/21/2016 DATE OF CONSULTATION: 12/08/2016 REASON FOR CONSULTATION: Shortness of breath. Thank you, Dr. Bowers, for this consultation. HISTORY OF PRESENT ILLNESS: This is an unfortunate 81-year-old lady with history of CVA, hemiplegia , hypertension, hyperlipidemia, dysphagia with significant debilitation has been experiencing increa sing shortness of breath, orthopnea, PND following admission for dehydration and urinary tract infec tion. Initially she was treated with cefepime and vancomycin, broad spectrum antibiotic coverage, p ulmonary toilet, wound care. Unfortunately, during this admission her condition has continued to de pandey and she has been experiencing worsening hypoxemia with increased secretions which she is havin g difficulty clearing. Now placed on noninvasive positive pressure ventilation, minimally responsiv e. PAST MEDICAL HISTORY: As above. MEDICATIONS: Per chart. ALLERGIES: NONE. SOCIAL HISTORY: Nonsmoker, no alcohol, no history of drug use. FAMILY HISTORY: Noncontributory. SYSTEMS REVIEW: A 12-point review of systems unable to perform. PHYSICAL EXAMINATION: GENERAL: Chronically ill-appearing lady in moderate distress. VITAL SIGNS: Currently afebrile, pulse is 115, blood pressure 160/100, O2 saturation 96% on nonrebr eather. NECK: Supple. HEENT: Dry mucous membranes. Pupils equal and reactive to light. CARDIAC: S1, S2, no added sounds or murmurs. CHEST: Diminished air entry bilaterally. ABDOMEN: Mildly distended but soft, nontender. No guarding or rebound. EXTREMITIES: No cyanosis, clubbing, 1+ edema. NEUROLOGIC: Generalized weakness. LABORATORIES: White count 9.6, hemoglobin 9.9, platelets 371. BUN 33, creatinine 0.64. INR 1.53. Arterial blood gas pH 7.46, pCO2 of 35, pO2 of 52 on nonrebreather. Chest x-ray was reviewed, shows no evidence of CHF, hyperinflated lungs. IMPRESSION AND PLAN: 1. Hypoxemic respiratory failure secondary to significant or tracheal secretions which patient is h aving significant difficulty clearing secondary to underlying CVA and encephalopathy. 2. No evidence of pneumonic process in the lung parenchyma. 3. No evidence of significant congestive cardiac failure. 4. Dementia. 5. Dysphagia with G-tube. The patient will need: 1. Continued aggressive pulmonary toilet. 2. Continue Mucomyst to loosen secretions. 3. Continue anticoagulation with Eliquis, although, patient is high bleeding risk. 4. Consider a trial of Lasix for oral secretions. 5. DVT and GI prophylaxis. 6. Agree with DNR status, as overall prognosis is very poor. Patient may be more appropriate for h ospice. Dictated By: СЕРГЕЙ ALATORRE/RAQUEL Conf#: [id number] DID#: [id number]
[2016-12-08] MEDS ORDERED: LEVALBUTEROL (NEB) 0.63 MG/3 ML AMP HHN PRN (18:30)
[2016-12-08] MEDS ORDERED: IPRATROPIUM (NEB) 0.5 MG/2.5 ML AMP HHN PRN (18:30)
--- NOTE | 2016-12-08 18:36 | PN ---
DATE: 12/08/2016 SUBJECTIVE: The patient was seen earlier. This is a followup visit. I appreciate Dr. Abraham's lmonary input and recommendations. The patient again had episodes of acute respiratory failure this morning. After aggressive suctioning, patient's O2 improved. She remains on a nonrebreather mask and saturation is above 90. ABG was done, which showed a pH of 7.46, pCO2 of 36, pO2 low at 53, sat uration was 88%. Again, after aggressive suctioning, saturation was around 93% to 99%. Plus, the p atient has difficulty clearing her secretions. I did start the patient on Mucomyst breathing treatm ents as well and continue aggressive pulmonary care. Currently, there is no evidence of infectious process, as a chest x-ray, which was done today, shows again bony hyperinflation with no evidence of CHF or acute infiltrate. Again, I spoke this morning with the son, confirmed the patient is DNR/DN I. The patient remains now more stable. We will follow closely. Again, in general, the patient's long-term prognosis is not very good. Will continue to monitor her closely. Dictated By: SHAWNA DONALD/RAQUEL Conf#: [id number] DID#: [id number]
[2016-12-08] MEDS: IPRATROPIUM (NEB) 0.5 MG/2.5 ML AMP HHN SCH (20:43)
[2016-12-08] MEDS: LEVALBUTEROL (NEB) 0.63 MG/3 ML AMP HHN SCH (20:44)
[2016-12-09] VITALS (13 sets, daily range): BP systolic 96–130; BP diastolic 63–91; PULSE 84–170; RESP 18–22
[2016-12-09] MEDS: LEVALBUTEROL (NEB) 0.63 MG/3 ML AMP HHN SCH ×4 (02:21→20:07)
[2016-12-09] MEDS: IPRATROPIUM (NEB) 0.5 MG/2.5 ML AMP HHN SCH ×4 (02:21→20:07)
[2016-12-09] MEDS: ACETYLCYSTEINE 20% 4 ML VIAL NEB SCH ×4 (02:33→20:07)
[2016-12-09] MEDS: LANSOPRAZOLE 30 MG CAP GTB SCH (05:32)
[2016-12-09 07:06] LABS: BASOPHILS % 0.1 % (0.0-2.0); HEMATOCRIT 29.2 % (37.0-47.0); HEMOGLOBIN 9.3 g/dl (12.0-16.0); LYMPHOCYTES # 1.2 10^3/ul (0.8-2.9); LYMPHOCYTES % 9.9 % (15.0-51.0); MEAN CORPUSCULAR HEMOGLOBIN 20.6 pg (29.0-33.0); MEAN CORPUSCULAR HGB CONC 31.8 g/dl (32.0-37.0); MEAN CORPUSCULAR VOLUME 64.9 fl (82.0-101.0); MEAN PLATELET VOLUME 11.4 fl (7.4-10.4); MONOCYTE # 1.1 10^3/ul (0.3-0.9); MONOCYTES % 9.3 % (0.0-11.0); NEUTROPHIL # 9.8 10^3/ul (1.6-7.5); NEUTROPHILS % 80.7 % (39.0-77.0); PLATELET COUNT 406 10^3/UL (140-440); RED CELL DISTRIBUTION WIDTH 20.3 % (11.5-14.5); UNCORRECTED WBC 12.2 10^3/ul (4.8-10.8); WHITE BLOOD COUNT 12.2 10^3/ul (4.8-10.8)
[2016-12-09 07:21] LABS: CONDITION 1; LH ANALYZER COMMENTS 1
[2016-12-09 07:38] LABS: POTASSIUM 4.7 mmol/L (3.5-5.1)
[2016-12-09 07:40] LABS: CREATININE 0.65 mg/dl (0.44-1.00)
[2016-12-09 08:26] LABS: MAGNESIUM 1.9 mg/dl (1.7-2.5); PHOSPHORUS 1.7 mg/dl (2.5-4.9)
[2016-12-09] MEDS ORDERED: MAGNESIUM SULFATE 2 GM/50 ML 50 ML IVPB ONE (09:00)
[2016-12-09] MEDS: APIXABAN 5 MG TABLET GTB SCH ×2 (10:23→21:07)
[2016-12-09] MEDS: FLUCONAZOLE 100 MG TAB GTB SCH (10:23)
[2016-12-09] MEDS: METOPROLOL 50 MG TAB PEG SCH ×3 (10:23→21:00)
--- NOTE | 2016-12-09 10:41 | PN ---
DATE: 12/09/2016 CARDIOLOGY FOLLOWUP SUBJECTIVE: Discussed with the staff. Events noted. Rhythm strip was reviewed. The patient appea rs to be in sinus rhythm, sinus tachycardia. She had hypoxemia yesterday and put on 100% oxygen. C urrently satting better now. Remains nonverbal. MEDICATIONS: Reviewed. PHYSICAL EXAMINATION: VITAL SIGNS: Temperature 99.9, heart rate of 110, blood pressure 127/90, respiration rate of 20, sa turating 100%. HEENT: Normocephalic, atraumatic, 100% oxygen. Appears to be distress. CARDIOVASCULAR: Tachycardic. PULMONARY: With no wheezes heard. GASTROINTESTINAL: Soft, nontender. EXTREMITIES: With trivial edema. NEUROLOGIC: Awake, does not answer questions. DIAGNOSTIC DATA: Chest x-ray showed hyperinflation with no evidence of CHF or acute infiltrate. LABORATORY: WBC of 12.2, hemoglobin 9.3, platelets 406. Sodium 137, potassium 4.7, BUN of 35, crea tinine 0.65, glucose of 158. Magnesium is 1.9. ASSESSMENT AND PLAN: 1. Status post respiratory failure. 2. Sinus tachycardia. 3. History of cerebrovascular accident. 4. Paroxysmal atrial fibrillation, currently in sinus. 5. Mildly abnormal troponin with normal ejection fraction. 6. Dysphagia, status post percutaneous endoscopic gastrostomy placement. 7. Hypertension. RECOMMENDATIONS: We will continue with the beta sandip. Follow up with the pulmonary care and pul monary recommendations. Electrolytes including potassium and magnesium will be replaced as needed. Oxygen supplement will be continued and try to titrate down as tolerated. Dictated By: REBECA SOLIMAN MD AV/RAQUEL Conf#: [id number] DID#: [id number] CC: SHAWNA CAROLINA MD;*[facility]*
--- NOTE | 2016-12-09 12:48 | PN ---
DATE: 12/09/2016 SUBJECTIVE: The patient is doing better today. She is less in distress, less tachypneic. Remains on a nonrebreather mask now at 8 liters. She improved after aggressive suctioning. Unfortunately, she is running a low grade temperature of 99.9 this morning. In addition, she had episodes of supra ventricular tachycardia in the 170s, just briefly. She remains on beta blockers. Cardiology is jessa amado. I appreciate also Dr. Abraham's followup and input. PHYSICAL EXAMINATION VITAL SIGNS: Temperature was 99.9. Earlier heart rate on the monitor is 85, respirations 20 to 26, blood pressure 127/91, saturation 99% on 8 liters nasal cannula on nonrebreather mask. GENERAL: The patient remains frail, appears more responsive today, her mouth is open. CARDIOVASCULAR: S1 and S2, regular. LUNGS: Decreased bilaterally. ABDOMEN: Soft, nontender. EXTREMITIES: Upper extremity trace to +1 edema. No significant edema of the lower extremities. Th e patient is overall very debilitated. She has a G tube as well. LABORATORY DATA: White count is 12.2, hemoglobin 9.3, hematocrit 29, platelet count 406, neutrophil s 81%, lymphocytes 10%. Chemistry: Sodium is 137, potassium 4.7, chloride 111, bicarbonate 29, BUN is 35, elevated creatinine 0.65, glucose of 158. Phosphorus is low at 1.7, magnesium 1.9. The long daniels's urine culture on 12/04/2016 was negative. MRSA of the nares was negative as well. Patient's chest x-ray dated yesterday did show bony hyperinflation with no evidence of CHF or acute infiltrat e. MEDICATIONS: Include the followin. Xopenex every 6 hours. 2. Atrovent every 6 hours. 3. Xopenex and Atrovent p.r.n. 4. Mucomyst q.6h. 5. Lopressor 50 mg t.i.d. 6. Digoxin 0.125 daily. 7. Prevacid 30 mg daily. 8. Eliquis 2.5 b.i.d. 9. Diflucan 100 mg daily. 10. Zofran p.r.n. 11. Tylenol p.r.n. 12. [place] p.r.n. 13. Morphine p.r.n. 14. Colace p.r.n. ASSESSMENT AND PLAN: This is a very unfortunate 81-year-old female with past medical history of CVA, very debilitated, bedridden, contracted with dysphagia, hypertension, paroxysmal at rial fibrillation, carotid stenosis, who presents with encephalopathy, dehydration, acute renal fail ure, left heel wounds, dysphagia and now underwent a G-tube placement. Unfortunately, status post r espiratory distress yesterday morning. 1. Respiratory, better but still concerning as the patient has episodes of tachycardia. She has lo w grade fevers. We will continue with pulmonary care with Mucomyst breathing treatment around the c lock, oxygen support and may consider initiation of antibiotics for possible bronchitis. Will obtai n sputum cultures. 2. Cardiovascular. Patient with paroxysmal atrial fibrillation and episodes of supraventricular ta chycardia. Remains on Eliquis, digoxin, beta blockers. Cardiology is following closely. 3. Renal. Monitor electrolytes and replace appropriately. 4. GI. Status post G-tube feeding, tolerating diet well. Continue proton pump inhibitor. 5. Patient is DO NOT RESUSCITATE/DO NOT INTUBATE. We will discuss with family regarding patient's ongoing condition, as she has been declining recently and overall, she has a poor quality of life an d not very responsive overall. Would definitely recommend a less aggressive approach, even possible hospice care. Will continue with ongoing discussion with family, will continue for now supportive care and try to stabilize her in anticipation for her full discharge soon back to [facility]. We will follow. Dictated By: SHAWNA DONALD/RAQUEL Conf#: [id number] DID#: [id number]
--- NOTE | 2016-12-09 12:57 | CONS ---
Date/Time of Note Date/Time of Note DATE: 12/09/16 TIME: 12:55 Consult Date/Type/Reason Admit Date/Time Nov 21, 2016 at 23:08 Initial Consult Date 12/24/16 Type of Consultation: pulmonary Ordering Provider: SHAWNA CAROLINA MD Subjective Patient remains lethargic on supplemental O2 Moderate oral secretions Objective Vital Signs Date Time Temp Pulse Resp B/P Pulse Ox O2 Delivery O2 Flow Rate FiO2 12/09/16 12:54 99.8 89 18 118/69 96 12/09/16 08:54 8.0 12/09/16 08:52 Non Rebreather Mask 100 Intake and Output 12/08/16 12/08/16 12/09/16 15:00 23:00 07:00 Intake Total 840 ml Output Total 550 ml Balance 290 ml PHYSICAL EXAMINATION: GENERAL: Chronically ill-appearing lady somnolent on facemask oxygen VITAL SIGNS: As above NECK: Supple. HEENT: Dry mucous membranes. Pupils equal and reactive to light. CARDIAC: S1, S2, no added sounds or murmurs. CHEST: Diminished air entry bilaterally. ABDOMEN: Mildly distended but soft, nontender. No guarding or rebound. EXTREMITIES: No cyanosis, clubbing, 1+ edema. NEUROLOGIC: Generalized weakness. Results/Medications Result Diagram: 12/09/16 0612/09/16 06 Results 24 hrs Laboratory Tests Test 12/09/16 06:05 12/09/16 12:32 Anion Gap 12 Basophils # 0.0 Basophils % 0.1 Blood Morphology Comment Blood Urea Nitrogen 35 H Calcium Level 9.0 Carbon Dioxide Level 29 Chloride Level 101 Creatinine 0.65 Eosinophils # 0.0 Eosinophils % 0.0 Glucose Level 158 Hematocrit 29.2 L Hemoglobin 9.3 L Lymphocytes # 1.2 Lymphocytes % 9.9 L Magnesium Level 1.9 Mean Corpuscular Hemoglobin 20.6 L Mean Corpuscular Hemoglobin Concent 31.8 L Mean Corpuscular Volume 64.9 L Mean Platelet Volume 11.4 H Monocytes # 1.1 H Monocytes % 9.3 Neutrophils # 9.8 H Neutrophils % 80.7 H Nucleated Red Blood Cells # 0.0 Nucleated Red Blood Cells % 0.0 Phosphorus Level 1.7 L Platelet Count 406 Potassium Level 4.7 Red Blood Count 4.50 Red Cell Distribution Width 20.3 H Sodium Level 137 White Blood Count 12.2 #H Bedside Glucose 179 Medications Current Medications Ondansetron HCl (Zofran Inj) 4 mg Q6H PRN IV NAUSEA AND/OR VOMITING; Start at 23:30 Acetaminophen (Tylenol Tab) 650 mg Q6H PRN PO PAIN LEVEL 1-3 OR FEVER; Start at 23:30 Acetaminophen/ Hydrocodone Bitart ([place] (5/325)) 1 tab Q6H PRN PO PAIN LEVEL 4 -6; Start 11/21/16 at 23:30 Morphine Sulfate (morphine) 2 mg Q4H PRN IV PAIN LEVEL 7-10; Start 11/21/16 at 23:30 Docusate Sodium (Colace) 100 mg Q12H PRN PO CONSTIPATION; Start 11/21/16 at 23: 30 IV Flush (NS 10 ml) 10 ml PRN PRN IV IV PROTOCOL; Start 11/25/16 at 14:00 Fluconazole (Diflucan) 100 mg DAILY GTB Last administered on 12/09/16 10:23; Admin Dose 100 MG; Start 12/03/16 at 16:00 Lansoprazole (Prevacid) 30 mg DAILY@06 GTB Last administered on 12/09/16 05:32 ; Admin Dose 30 MG; Start 12/04/16 at 06:00 Digoxin (Digoxin) 0.125 mg DAILY@13 GTB Last administered on 12/08/16 14:17; Admin Dose 0.125 MG; Start 12/04/16 at 13:00 Apixaban (Eliquis) 2.5 mg BID GTB Last administered on 12/09/16 10:23; Admin Dose 2.5 MG; Start 12/03/16 at 21:00 Metoprolol Tartrate 50 mg 50 mg TID PEG Last administered on 12/09/16 10:23; Admin Dose 50 MG; Start 12/08/16 at 09:00 Imipenem/ Cilastatin Sodium (Primaxin 500 Mg/ 100 ml (Pmx)) 100 ml @ 100 mls/ hr Q12 IVPB ; Start 12/09/16 at 13:00 Assessment/Plan Chief Complaint/Hosp Course IMPRESSION AND PLAN: 1. Hypoxemic respiratory failure secondary to significant or tracheal secretions which patient is having significant difficulty clearing secondary to underlying CVA and encephalopathy. 2. No evidence of pneumonic process in the lung parenchyma. 3. No evidence of significant congestive cardiac failure. 4. Dementia. 5. Dysphagia with G-tube. The patient will need: 1. Continued aggressive pulmonary toilet. 2. Continue Mucomyst to loosen secretions. 3. Continue anticoagulation with Eliquis, although, patient is high bleeding risk. 4. Consider a trial of Lasix for oral secretions. 5. DVT and GI prophylaxis. Continue antibiotics 6. Agree with DNR status, as overall prognosis is very poor. Problems: СЕРГЕЙ CAZARES MD, [facility] Dec 09, 2016 12:57
[2016-12-09] MEDS: IMIPENEM-CILAST 500MG IV (PMX) 100 ML IVPB SCH ×2 (15:08→21:08)
[2016-12-09] MEDS: DIGOXIN 0.125 MG TAB GTB SCH (15:10)
--- NOTE | 2016-12-09 19:34 | CONS ---
Date/Time of Note Date/Time of Note DATE: 12/09/16 TIME: 19:32 Assessment/Plan Assessment/Plan Additional Assessment/Plan Additional Assessment/Plan Impression: 1. Dysphagia,s/p PEG 2. protein calorie malnutrition 3. Arrhythmia: stable 4. Persistent leukocytosis with remote history of C. diff. 5. Urinary tract infection. 6. Dehydration. REcommendation: 1. continue Megace to stimulate appetite 2. continue current dysphagia diet 3. f/u calorie count 4. f/u stool for C. difficile. 5. continue current abx per pcp and ID 6.resume feeding,increase it gradually as per dietitian 7.aspiration precaution,especially when fed through mouth 8.pt cannot swallow her own oral secretion Consultation Date/Type/Reason Admit Date/Time Nov 21, 2016 at 23:08 Type of Consultation: pulmonary Referring Provider: SHAWNA CAROLINA MD 24 HR Interval Summary Constitutional: poor po, requiring O2 Exam/Review of Systems Vital Signs Vitals Vital Signs Date Time Temp Pulse Resp B/P Pulse Ox O2 Delivery O2 Flow Rate FiO2 12/09/16 16:43 99.6 85 18 122/72 99 12/09/16 13:01 8.0 12/09/16 13:00 Simple Mask 60 Intake and Output 12/08/16 12/08/16 12/09/16 15:00 23:00 07:00 Intake Total 840 ml Output Total 550 ml Balance 290 ml Exam Constitutional: alert, oriented, well developed Psych: nl mood/affect, no complaints Head: atraumatic, normocephalic Eyes: EOMI, PERRL, nl conjunctiva, nl lids, nl sclera ENMT: nl external ears & nose, nl lips & teeth, nl nasal mucosa & septum Neck: non-tender, supple Respiratory: clear to auscultation, normal air movement Cardiovascular: nl pulses, regular rate and rhythm Gastrointestinal: nl liver, spleen, non-tender, soft Musculoskeletal: nl extremities to inspection, nl gait and stance Extremities: normal pulses Neurological: CAKE WASHER II-XII intact, nl mental status, nl speech, nl strength Skin: nl turgor, No rash or lesions Lymph: nl lymph nodes Results Result Diagram: 12/09/16 0605 12/09/16 0605 Results 24 hrs Laboratory Tests Test 12/09/16 06:05 12/09/16 12:32 Anion Gap 12 Basophils # 0.0 Basophils % 0.1 Blood Morphology Comment Blood Urea Nitrogen 35 H Calcium Level 9.0 Carbon Dioxide Level 29 Chloride Level 101 Creatinine 0.65 Eosinophils # 0.0 Eosinophils % 0.0 Glucose Level 158 Hematocrit 29.2 L Hemoglobin 9.3 L Lymphocytes # 1.2 Lymphocytes % 9.9 L Magnesium Level 1.9 Mean Corpuscular Hemoglobin 20.6 L Mean Corpuscular Hemoglobin Concent 31.8 L Mean Corpuscular Volume 64.9 L Mean Platelet Volume 11.4 H Monocytes # 1.1 H Monocytes % 9.3 Neutrophils # 9.8 H Neutrophils % 80.7 H Nucleated Red Blood Cells # 0.0 Nucleated Red Blood Cells % 0.0 Phosphorus Level 1.7 L Platelet Count 406 Potassium Level 4.7 Red Blood Count 4.50 Red Cell Distribution Width 20.3 H Sodium Level 137 White Blood Count 12.2 #H Bedside Glucose 179 Medications Medications Current Medications Ondansetron HCl (Zofran Inj) 4 mg Q6H PRN IV NAUSEA AND/OR VOMITING; Start at 23:30 Acetaminophen (Tylenol Tab) 650 mg Q6H PRN PO PAIN LEVEL 1-3 OR FEVER; Start at 23:30 Acetaminophen/ Hydrocodone Bitart ([place] (5/325)) 1 tab Q6H PRN PO PAIN LEVEL 4 -6; Start 11/21/16 at 23:30 Morphine Sulfate (morphine) 2 mg Q4H PRN IV PAIN LEVEL 7-10; Start 11/21/16 at 23:30 Docusate Sodium (Colace) 100 mg Q12H PRN PO CONSTIPATION; Start 11/21/16 at 23: 30 IV Flush (NS 10 ml) 10 ml PRN PRN IV IV PROTOCOL; Start 11/25/16 at 14:00 Fluconazole (Diflucan) 100 mg DAILY GTB Last administered on 12/09/16 10:23; Admin Dose 100 MG; Start 12/03/16 at 16:00 Lansoprazole (Prevacid) 30 mg DAILY@06 GTB Last administered on 12/09/16 05:32 ; Admin Dose 30 MG; Start 12/04/16 at 06:00 Digoxin (Digoxin) 0.125 mg DAILY@13 GTB Last administered on 12/09/16 15:10; Admin Dose 0.125 MG; Start 12/04/16 at 13:00 Apixaban (Eliquis) 2.5 mg BID GTB Last administered on 12/09/16 10:23; Admin Dose 2.5 MG; Start 12/03/16 at 21:00 Metoprolol Tartrate 50 mg 50 mg TID PEG Last administered on 12/09/16 15:09; Admin Dose 50 MG; Start 12/08/16 at 09:00 Imipenem/ Cilastatin Sodium (Primaxin 500 Mg/ 100 ml (Pmx)) 100 ml @ 100 mls/ hr Q12 IVPB Last administered on 12/09/16 15:08; Admin Dose 100 MLS/HR; Start 12/09/16 at 13:00 LEANDRO BELL MD Dec 09, 2016 19:34
[2016-12-10] VITALS (11 sets, daily range): BP systolic 105–134; BP diastolic 57–74; PULSE 86–182; RESP 19–20
[2016-12-10] MEDS: IPRATROPIUM (NEB) 0.5 MG/2.5 ML AMP HHN SCH ×4 (02:38→19:31)
[2016-12-10] MEDS: ACETYLCYSTEINE 20% 4 ML VIAL NEB SCH ×4 (02:38→19:31)
[2016-12-10] MEDS: LEVALBUTEROL (NEB) 0.63 MG/3 ML AMP HHN SCH ×4 (02:38→19:31)
[2016-12-10] MEDS: LANSOPRAZOLE 30 MG CAP GTB SCH (05:52)
[2016-12-10 07:33] LABS: ADD SCAN DIFF NO
[2016-12-10 07:40] LABS: ABNORMAL IP MESSAGE 1; BASOPHILS % 0.1 % (0.0-2.0); HEMATOCRIT 24.9 % (37.0-47.0); HEMOGLOBIN 7.9 g/dl (12.0-16.0); LYMPHOCYTES # 1.4 10^3/ul (0.8-2.9); LYMPHOCYTES % 9.9 % (15.0-51.0); MEAN CORPUSCULAR HEMOGLOBIN 19.7 pg (29.0-33.0); MEAN CORPUSCULAR HGB CONC 31.7 g/dl (32.0-37.0); MEAN CORPUSCULAR VOLUME 61.9 fl (82.0-101.0); MONOCYTE # 1.1 10^3/ul (0.3-0.9); NEUTROPHIL # 11.6 10^3/ul (1.6-7.5); NEUTROPHILS % 81.6 % (39.0-77.0); PLATELET COUNT 307 10^3/UL (140-415); RED BLOOD COUNT 4.02 10^6/ul (4.20-5.40); RED CELL DISTRIBUTION WIDTH 20.5 % (11.5-14.5); WHITE BLOOD COUNT 14.2 10^3/ul (4.8-10.8)
[2016-12-10 07:57] LABS: MAGNESIUM 2.5 mg/dl (1.7-2.5); PHOSPHORUS 1.8 mg/dl (2.5-4.9)
[2016-12-10 08:13] LABS: POTASSIUM 4.5 mmol/L (3.5-5.1)
[2016-12-10 08:15] LABS: CREATININE 0.52 mg/dl (0.44-1.00)
[2016-12-10 08:16] LABS: ALBUMIN/GLOBULIN RATIO 0.68; CALCIUM 8.5 mg/dl (8.4-10.2); TOTAL PROTEIN 4.9 g/dl (6.1-8.1)
[2016-12-10] MEDS: APIXABAN 5 MG TABLET GTB SCH ×2 (10:18→21:42)
[2016-12-10] MEDS: IMIPENEM-CILAST 500MG IV (PMX) 100 ML IVPB SCH ×2 (10:18→21:42)
[2016-12-10] MEDS: METOPROLOL 50 MG TAB PEG SCH ×3 (10:19→21:43)
[2016-12-10] MEDS: FLUCONAZOLE 100 MG TAB GTB SCH (10:19)
--- NOTE | 2016-12-10 13:05 | PN ---
DATE: 12/10/2016 The patient Eliel remains minimally responsive on facemask O2. PHYSICAL EXAMINATION: VITAL SIGNS: Temperature 98. Pulse is 88, blood pressure /74, O2 saturation 96% on 8 liters n jayden cannula. NECK: Supple. No JVD or lymphadenopathy. CARDIAC: S1, S2, no added sounds or murmurs. CHEST: Diminished air entry bilaterally. ABDOMEN: Mildly distended but soft. EXTREMITIES: No cyanosis, clubbing, 1+ edema. NEUROLOGIC: Generalized weakness. SKIN: She has significant extensive decubitus ulcers. LABORATORY DATA: White count 14.0, hemoglobin , platelets 307. BUN 34, creatinine 0.52. IMPRESSION AND PLAN: 1. Hypoxemic respiratory failure. 2. Dementia. 3. Significant cachexia and malnutrition. 4. Multiple decubitus ulcers and polymicrobial sepsis. PLAN: 1. Continue O2. 2. Bronchodilators. 3. Pulmonary toilet. 4. Antibiotics. 5. Consider hospice evaluation as patient's overall prognosis is very poor. Dictated By: СЕРГЕЙ ALATORRE/RAQUEL Conf#: [id number] DID#: [id number]
[2016-12-10] MEDS: DIGOXIN 0.125 MG TAB GTB SCH (14:20)
--- NOTE | 2016-12-10 15:14 | PN ---
DATE: 12/10/2016 SUBJECTIVE: The patient is seen and appears to be doing better today. She is only on nasal cannula 2 liters, saturating well, 99 to 100%. The patient is in no distress but remains very encephalopat hic which is somewhat her baseline where she is not very responsive. Case discussed with nursing st aff at bedside. Noted increased white count to 14 but decreased H and H to 7.9/25. Again, the julio césar ent's T-max is 99.8 yesterday at noon. Since then, she has had no fevers. She has episodes of SVTs at times. OBJECTIVE: VITAL SIGNS: Core temperature 98.6, pulse 87, respirations 19, blood pressure 134/74, saturation is 100% on 2 liters. GENERAL: The patient is in no acute distress. The patient is pale, frail, decreased dentition, not very responsive to verbal stimuli. CARDIOVASCULAR: S1, S2. LUNGS: Clear. ABDOMEN: Soft, nontender. G-tube in place. EXTREMITIES: Upper extremity trace to +1 edema. Lower extremity, no significant edema. She does h ave left heel wound. LABORATORY DATA: White count is 14.2, hemoglobin 7.9, hematocrit 25, platelet count 307, neutrophil s 82%, lymphocytes 10%. Chemistry: Sodium is 137, potassium 4.5, chloride 102, bicarbonate 27, BUN is elevated at 34, creatinine 0.52, glucose of 162. Phosphorus low at 1.8. Otherwise, albumin is 2.0. MRSA of the nares was negative. MEDICATIONS: Reviewed including 1. Imipenem 500 IV q. 12. 2. Xopenex every 6 hours p.r.n. 3. Atrovent every 6 hours p.r.n. 4. Mucomyst q. 6 hours. 5. Lopressor 50 mg t.i.d. 6. Digoxin 0.25 daily. 7. Prevacid 20 mg daily. 8. Eliquis 2.5 b.i.d. 9. Diflucan 1 mg daily. 10. Zofran p.r.n. 11. Tylenol p.r.n. 12. [place] p.r.n. ASSESSMENT AND PLAN: This is a very unfortunate 81-year-old female with history of c erebrovascular accident, debilitated, bedridden state, contracted with dysphagia, hypertension, paro xysmal atrial fibrillation, and carotid stenosis who presented with encephalopathy, dehydration, acu te renal failure, left heel wound, dysphagia status post G-tube placement, with recent acute respira tory failure. 1. Respiratory. I did start the patient on antibiotics with imipenem for possible tracheobronchiti s. Continue respiratory support with breathing treatment, Mucomyst, O2 support, and suctioning. Fo llow up white count. 2. Neurologically very debilitated status post cerebrovascular accident. The patient with history of carotid stenosis. Continue anticoagulation with Eliquis as the patient has history of atrial fib rillation. Continue beta blockers as the patient has supraventricular tachycardia. She also is on digoxin. 3. Renal replacement. Electrolytes observe. 4. Gastrointestinal. There is a drop in hemoglobin and hematocrit. No evidence of active bleeding . The patient is on blood thinners. We will follow and may consider transfusion. Continue proton pump inhibitor. 5. The patient is DO NOT RESUSCITATE/DO NOT INTUBATE. Overall, looking at the whole picture and noted Dr. Abraham's recommendation, the patient definitely would be appropriate for hospice care as the patient's overall prognosis and quality of life is poo r. I left a message again with the son, Philly, phone number . We will follow closely . Dictated By: SHAWNA DONALD/RAQUEL Conf#: [id number] DID#: [id number]
--- NOTE | 2016-12-10 16:42 | PN ---
DATE: 12/10/2016 CARDIOLOGY FOLLOWUP SUBJECTIVE: Discussed with the staff. Rhythm strip reviewed. The patient remains in sinus rhythm, sinus tachycardia. Still has frequent PACs but no atrial fibrillation. The patient remains enceph alitic, does not answer any questions. MEDICATIONS: Reviewed. PHYSICAL EXAMINATION: VITAL SIGNS: Temperature 98.6, heart rate of 87, blood pressure 134/74, respiration 19, saturating 99%. HEENT: Normocephalic, atraumatic. Thin elderly female. Pupils are equal. CARDIOVASCULAR: Regular rate and rhythm. PULMONARY: No wheezes heard anteriorly. GASTROINTESTINAL: Soft, nontender. EXTREMITIES: Trivial edema. NEUROLOGIC: Opens eyes, does not answer questions. LABORATORY: WBC of 14.2, hemoglobin of 7.9, platelets of 207. Sodium 137, potassium 4.5, BUN 34, c reatinine 0.52, glucose 162. ASSESSMENT AND PLAN: 1. Paroxysmal atrial fibrillation currently in sinus rhythm. 2. History of deep venous thrombosis. 3. Status post sepsis and urinary tract infection. 4. Encephalopathy. 5. Aspiration. 6. Anemia. RECOMMENDATIONS: We will continue with the beta sandip. She is currently anticoagulated with Eliq uis to be discontinued if she becomes more anemic or there is any sign of significant blood loss. I will also check for guaiac stool. Electrolytes will be corrected as needed. Dictated By: REBECA SOLIMAN MD AV/NTS Conf#: [id number] DID#: [id number] CC: SHAWNA CAROLINA MD;*EndCC*
[2016-12-10] MEDS: DOCUSATE SODIUM 100 MG CAP PO PRN (21:43)
[2016-12-11] VITALS (15 sets, daily range): BP systolic 100–147; BP diastolic 57–84; PULSE 85–179; RESP 14–20
[2016-12-11] MEDS: LEVALBUTEROL (NEB) 0.63 MG/3 ML AMP HHN SCH ×4 (02:00→19:55)
[2016-12-11] MEDS: ACETYLCYSTEINE 20% 4 ML VIAL NEB SCH ×4 (02:00→19:55)
[2016-12-11] MEDS: IPRATROPIUM (NEB) 0.5 MG/2.5 ML AMP HHN SCH ×4 (02:00→19:55)
[2016-12-11] MEDS ORDERED: DIGOXIN 500 MCG INJ IV ONE ×2 (05:30→05:31)
[2016-12-11] MEDS: LANSOPRAZOLE 30 MG CAP GTB SCH (06:22)
[2016-12-11] MEDS ORDERED: METOPROLOL 50 MG TAB GTB ONE (07:00)
[2016-12-11 07:57] LABS: ADD SCAN DIFF NO
[2016-12-11 08:04] LABS: BASOPHILS % 0.1 % (0.0-2.0); HEMATOCRIT 30.1 % (37.0-47.0); HEMOGLOBIN 9.7 g/dl (12.0-16.0); LYMPHOCYTES # 1.4 10^3/ul (0.8-2.9); LYMPHOCYTES % 11.3 % (15.0-51.0); MEAN CORPUSCULAR HEMOGLOBIN 20.8 pg (29.0-33.0); MEAN CORPUSCULAR HGB CONC 32.1 g/dl (32.0-37.0); MEAN CORPUSCULAR VOLUME 64.6 fl (82.0-101.0); MEAN PLATELET VOLUME 11.1 fl (7.4-10.4); MONOCYTE # 1.1 10^3/ul (0.3-0.9); MONOCYTES % 8.8 % (0.0-11.0); NEUTROPHIL # 9.8 10^3/ul (1.6-7.5); NEUTROPHILS % 79.8 % (39.0-77.0); PLATELET COUNT 394 10^3/UL (140-440); RED BLOOD COUNT 4.67 10^6/ul (4.20-5.40); RED CELL DISTRIBUTION WIDTH 21.1 % (11.5-14.5); WHITE BLOOD COUNT 12.2 10^3/ul (4.8-10.8)
[2016-12-11 08:10] LABS: POTASSIUM 4.7 mmol/L (3.5-5.1)
[2016-12-11 08:13] LABS: CREATININE 0.54 mg/dl (0.44-1.00)
[2016-12-11] MEDS: FLUCONAZOLE 100 MG TAB GTB SCH (09:26)
[2016-12-11] MEDS: APIXABAN 5 MG TABLET GTB SCH ×2 (09:26→20:29)
[2016-12-11] MEDS: METOPROLOL 50 MG TAB PEG SCH ×2 (09:26→20:30)
[2016-12-11 10:17] LABS: MAGNESIUM 2.4 mg/dl (1.7-2.5); PHOSPHORUS 2.2 mg/dl (2.5-4.9)
[2016-12-11] MEDS: IMIPENEM-CILAST 500MG IV (PMX) 100 ML IVPB SCH ×2 (10:24→20:29)
--- NOTE | 2016-12-11 12:26 | PN ---
DATE: 12/11/2016 SUBJECTIVE: Patient is seen. Appears to be more comfortable today. She had an episode of atrial f ibrillation with RVR earlier, status post digoxin IV x1, and responded well. Currently in sinus, he art rate is in the 90s. Mouth is closed. The patient appears to be comfortable. Slightly more res ponsive to me today. PHYSICAL EXAMINATION: VITAL SIGNS: Temperature was 99.9. Unfortunately, this morning she had a low-grade temperature. Pul se 98, respirations 18, blood pressure 147/84, saturation 98% on 2 liters. GENERAL: Patient is in no acute distress. The patient is pale. HEENT: Temporal wasting. CARDIOVASCULAR: S1 and S2, regular rate. LUNGS: Decreased bilaterally. ABDOMEN: Soft. G-tube in place. EXTREMITIES: Upper extremity with trace to +1 edema. Lower extremity no edema. Patient is contrac calos. LABORATORY: White count improved to 12.2, hemoglobin is 9.7. Yesterday hemoglobin was 7.9, was lik sujatha an error. Hematocrit 30, platelet count 394, neutrophils 80%, lymphocytes 11%. Chemistry: Sod ium is 139, potassium 4.7, chloride 102, bicarbonate 30, BUN 34, creatinine 0.54, glucose of 137. P hosphorus slightly low at 2.2. Urine culture repeat on 12/04/2016 was negative. Awaiting sputum cu lture as well. MEDICATIONS: Include: 1. Lopressor 100 b.i.d. 2. Digoxin 250 IV x1. 3. Imipenem 500 IV q.12. 4. Xopenex every 6 hours. 5. Atrovent every 6 hours. 6. Atrovent and Xopenex p.r.n. 7. Mucomyst q.6h. 8. Digoxin 0.125 daily. 9. Prevacid 30 mg daily. 10. Eliquis 2.5 b.i.d. 11. Diflucan 100 mg daily. 12. Zofran p.r.n. 13. Tylenol p.r.n. 14. [place] p.r.n. 15. Morphine p.r.n. 16. Colace p.r.n. ASSESSMENT AND PLAN: This is an unfortunate 81-year-old female with a history of a c erebrovascular, debilitated, bedridden state, contracted, with dysphagia, hypertension, paroxysmal a trial fibrillation, and carotid stenosis, who presented with encephalopathy, dehydration, acute stewart l failure, left heel wound, dysphagia, status post G-tube placement, with episodic respiratory distr ess, resolved. 1. Respiratory. Continue antibiotic therapy for possible tracheobronchitis. On imipenem. Follow up with cultures. Continue respiratory care with breathing treatments, Mucomyst, O2 support, and clifton ctioning. 2. Infectious disease. Follow up fevers, follow up WBCs, follow up cultures. Continue imipenem for now. 3. Neurological. Is quite debilitated, slightly more responsive today. Observe. 4. Paroxysmal atrial fibrillation. Continue digoxin, anticoagulation with Eliquis and high-dose be ta blockers. I appreciate cardiology followup and input. 5. Gastrointestinal. Hemoglobin and hematocrit remain stable. No active bleeding. 6. Patient is DO NOT RESUSCITATE/DO NOT INTUBATE. 7. The patient overall has poor quality of life. Will continue to monitor. DISPOSITION: To the snf facility soon, hopefully when afebrile and slightly more stable . She still goes in and out of atrial fibrillation with rapid heart rate, low grade fever, etcetera . Again, will try to stabilize. Plan for discharge. We will follow. Dictated By: SHAWNA DONALD/RAQUEL Conf#: [id number] DID#: [id number]
[2016-12-11] MEDS: DIGOXIN 0.125 MG TAB GTB SCH (13:19)
--- NOTE | 2016-12-11 17:47 | CONS ---
Date/Time of Note Date/Time of Note DATE: 12/11/16 TIME: 17:45 Consult Date/Type/Reason Admit Date/Time Nov 21, 2016 at 23:08 Initial Consult Date 12/24/16 Type of Consultation: pulmonary Ordering Provider: SHAWNA CAROLINA MD Subjective No events overnight Objective Vital Signs Date Time Temp Pulse Resp B/P Pulse Ox O2 Delivery O2 Flow Rate FiO2 12/11/16 16:15 93 12/11/16 16:14 99.4 18 120/73 96 12/11/16 13:55 Nasal Cannula 2.0 12/10/16 02:39 60 Intake and Output 12/10/16 12/10/16 12/11/16 15:00 23:00 07:00 Intake Total 800 ml 900 ml Output Total 600 ml 600 ml Balance 200 ml 300 ml HEENT: Neck supple; no JVD; no LAD CVS: RRR, S1 and S2 CHEST: Clear ABD: Soft, NT, + BS EXT: No c/c/e Results/Medications Result Diagram: 12/11/16 0745 12/11/16 0745 Results 24 hrs Laboratory Tests Test 12/11/16 07:45 Anion Gap 12 Basophils # 0.0 Basophils % 0.1 Blood Morphology Comment Blood Urea Nitrogen 34 H Calcium Level 9.0 Carbon Dioxide Level 30 Chloride Level 102 Creatinine 0.54 Eosinophils # 0.0 Eosinophils % 0.0 Glucose Level 137 Hematocrit 30.1 #L Hemoglobin 9.7 #L Lymphocytes # 1.4 Lymphocytes % 11.3 L Magnesium Level 2.4 Mean Corpuscular Hemoglobin 20.8 L Mean Corpuscular Hemoglobin Concent 32.1 Mean Corpuscular Volume 64.6 L Mean Platelet Volume 11.1 H Monocytes # 1.1 H Monocytes % 8.8 Neutrophils # 9.8 H Neutrophils % 79.8 H Nucleated Red Blood Cells # 0.0 Nucleated Red Blood Cells % 0.0 Phosphorus Level 2.2 L Platelet Count 394 Potassium Level 4.7 Red Blood Count 4.67 Red Cell Distribution Width 21.1 H Sodium Level 139 White Blood Count 12.2 H Medications Current Medications Ondansetron HCl (Zofran Inj) 4 mg Q6H PRN IV NAUSEA AND/OR VOMITING; Start at 23:30 Acetaminophen (Tylenol Tab) 650 mg Q6H PRN PO PAIN LEVEL 1-3 OR FEVER Last administered on 12/10/16 21:43; Admin Dose 650 MG; Start 11/21/16 at 23:30 Acetaminophen/ Hydrocodone Bitart ([place] (5/325)) 1 tab Q6H PRN PO PAIN LEVEL 4 -6; Start 11/21/16 at 23:30 Morphine Sulfate (morphine) 2 mg Q4H PRN IV PAIN LEVEL 7-10; Start 11/21/16 at 23:30 Docusate Sodium (Colace) 100 mg Q12H PRN PO CONSTIPATION Last administered on 21:43; Admin Dose 100 MG; Start 11/21/16 at 23:30 IV Flush (NS 10 ml) 10 ml PRN PRN IV IV PROTOCOL; Start 11/25/16 at 14:00 Fluconazole (Diflucan) 100 mg DAILY GTB Last administered on 12/11/16 09:26; Admin Dose 100 MG; Start 12/03/16 at 16:00 Lansoprazole (Prevacid) 30 mg DAILY@06 GTB Last administered on 12/11/16 06:22 ; Admin Dose 30 MG; Start 12/04/16 at 06:00 Digoxin (Digoxin) 0.125 mg DAILY@13 GTB Last administered on 12/11/16 13:19; Admin Dose 0.125 MG; Start 12/04/16 at 13:00 Apixaban 2.5 mg 2.5 mg BID GTB Last administered on 12/11/16 09:26; Admin Dose 2.5 MG; Start 12/03/16 at 21:00 Imipenem/ Cilastatin Sodium (Primaxin 500 Mg/ 100 ml (Pmx)) 100 ml @ 100 mls/ hr Q12 IVPB Last administered on 12/11/16 10:24; Admin Dose 100 MLS/HR; Start 12/09/16 at 13:00 Digoxin (Digoxin) 250 mcg ONCE ONCE IV Last administered on 12/11/16 05:42; Admin Dose 250 MCG; Start 12/11/16 at 05:31; Stop 12/11/16 at 05:32 Metoprolol Tartrate (Lopressor) 50 mg NOW ONCE GTB Last administered on 07:01; Admin Dose 50 MG; Start 12/11/16 at 07:00; Stop 12/11/16 at 07:01 Metoprolol Tartrate (Lopressor) 100 mg BID PEG Last administered on 12/11/16t 09:26; Admin Dose 100 MG; Start 12/11/16 at 09:00 Assessment/Plan Additional Assessment/Plan IMPRESSION: 1. Hypoxemic respiratory failure. 2. Dementia. 3. Significant cachexia and malnutrition. 4. Multiple decubitus ulcers and polymicrobial sepsis. RECS: 1. Continue O2. 2. Bronchodilators. 3. Pulmonary toilet. 4. Antibiotics--> de-escalate 5. Palliative care RACHELLE Sexton MD Dec 11, 2016 17:47
[2016-12-12] VITALS (15 sets, daily range): BP systolic 107–166; BP diastolic 61–89; PULSE 74–162; RESP 18–20
[2016-12-12] MEDS: ACETYLCYSTEINE 20% 4 ML VIAL NEB SCH ×4 (01:52→19:41)
[2016-12-12] MEDS: IPRATROPIUM (NEB) 0.5 MG/2.5 ML AMP HHN SCH ×4 (01:52→19:41)
[2016-12-12] MEDS: LEVALBUTEROL (NEB) 0.63 MG/3 ML AMP HHN SCH ×4 (01:52→19:41)
[2016-12-12] MEDS: DOCUSATE SODIUM 100 MG CAP PO PRN (05:38)
[2016-12-12] MEDS: LANSOPRAZOLE 30 MG CAP GTB SCH (05:38)
[2016-12-12 08:27] LABS: BASOPHILS % 0.3 % (0.0-2.0); EOSINOPHILS % 0.2 % (0.0-7.0); HEMATOCRIT 29.9 % (37.0-47.0); HEMOGLOBIN 9.4 g/dl (12.0-16.0); LYMPHOCYTES # 1.8 10^3/ul (0.8-2.9); LYMPHOCYTES % 20.9 % (15.0-51.0); MEAN CORPUSCULAR HEMOGLOBIN 20.4 pg (29.0-33.0); MEAN CORPUSCULAR HGB CONC 31.5 g/dl (32.0-37.0); MEAN CORPUSCULAR VOLUME 64.9 fl (82.0-101.0); MEAN PLATELET VOLUME 10.6 fl (7.4-10.4); MONOCYTE # 0.8 10^3/ul (0.3-0.9); MONOCYTES % 9.4 % (0.0-11.0); NEUTROPHILS % 69.2 % (39.0-77.0); PLATELET COUNT 459 10^3/UL (140-440); RED BLOOD COUNT 4.61 10^6/ul (4.20-5.40); RED CELL DISTRIBUTION WIDTH 21.4 % (11.5-14.5); UNCORRECTED WBC 8.7 10^3/ul (4.8-10.8); WHITE BLOOD COUNT 8.7 10^3/ul (4.8-10.8)
[2016-12-12 08:32] LABS: CONDITION 1; LH ANALYZER COMMENTS 1
[2016-12-12 08:38] LABS: MAGNESIUM 2.2 mg/dl (1.7-2.5)
[2016-12-12] MEDS ORDERED: METOPROLOL 5 MG INJ IV ONE (09:00)
[2016-12-12] MEDS: FLUCONAZOLE 100 MG TAB GTB SCH (09:02)
[2016-12-12] MEDS: METOPROLOL 50 MG TAB PEG SCH ×2 (09:03→21:16)
[2016-12-12] MEDS: APIXABAN 5 MG TABLET GTB SCH ×2 (09:03→21:17)
[2016-12-12] MEDS: IMIPENEM-CILAST 500MG IV (PMX) 100 ML IVPB SCH ×2 (09:04→21:16)
[2016-12-12 09:14] LABS: POTASSIUM 4.4 mmol/L (3.5-5.1)
[2016-12-12 09:17] LABS: CREATININE 0.57 mg/dl (0.44-1.00)
[2016-12-12 09:18] LABS: CALCIUM 9.3 mg/dl (8.4-10.2)
[2016-12-12] MEDS: DIGOXIN 0.125 MG TAB GTB SCH (13:16)
--- NOTE | 2016-12-12 15:07 | CONS ---
Date/Time of Note Date/Time of Note DATE: 12/12/16 TIME: 15:06 Consult Date/Type/Reason Admit Date/Time Nov 21, 2016 at 23:08 Initial Consult Date 12/24/16 Type of Consultation: pulmonary Ordering Provider: SHAWNA CAROLINA MD Subjective No events. Objective Vital Signs Date Time Temp Pulse Resp B/P Pulse Ox O2 Delivery O2 Flow Rate FiO2 12/12/16 13:34 101 18 96 Nasal Cannula 2.0 12/12/16 12:30 98.0 110/68 12/12/16 01:56 28 Intake and Output 12/11/16 12/11/16 12/12/16 15:00 23:00 07:00 Intake Total 100 ml 1060 ml 900 ml Output Total 650 ml 600 ml Balance 100 ml 410 ml 300 ml HEENT: Neck supple; no JVD; no LAD CVS: RRR, S1 and S2 CHEST: Clear ABD: Soft, NT, + BS EXT: No c/c/e Results/Medications Result Diagram: 12/12/16 0730 12/12/16 0730 Results 24 hrs Laboratory Tests Test 12/12/16 07:30 Anion Gap 12 Basophils # 0.0 Basophils % 0.3 Blood Morphology Comment Blood Urea Nitrogen 33 H Calcium Level 9.3 Carbon Dioxide Level 28 Chloride Level 103 Creatinine 0.57 Digoxin Level Eosinophils # 0.0 Eosinophils % 0.2 Glucose Level 127 Hematocrit 29.9 L Hemoglobin 9.4 L Lymphocytes # 1.8 Lymphocytes % 20.9 Magnesium Level 2.2 Mean Corpuscular Hemoglobin 20.4 L Mean Corpuscular Hemoglobin Concent 31.5 L Mean Corpuscular Volume 64.9 L Mean Platelet Volume 10.6 H Monocytes # 0.8 Monocytes % 9.4 Neutrophils # 6.0 Neutrophils % 69.2 Nucleated Red Blood Cells # 0.0 Nucleated Red Blood Cells % 0.0 Phosphorus Level 3.0 Platelet Count 459 H Potassium Level 4.4 Red Blood Count 4.61 Red Cell Distribution Width 21.4 H Sodium Level 139 White Blood Count 8.7 # Medications Current Medications Ondansetron HCl (Zofran Inj) 4 mg Q6H PRN IV NAUSEA AND/OR VOMITING; Start at 23:30 Acetaminophen (Tylenol Tab) 650 mg Q6H PRN PO PAIN LEVEL 1-3 OR FEVER Last administered on 12/10/16 21:43; Admin Dose 650 MG; Start 11/21/16 at 23:30 Acetaminophen/ Hydrocodone Bitart ([place] (5/325)) 1 tab Q6H PRN PO PAIN LEVEL 4 -6; Start 11/21/16 at 23:30 Morphine Sulfate (morphine) 2 mg Q4H PRN IV PAIN LEVEL 7-10; Start 11/21/16 at 23:30 Docusate Sodium (Colace) 100 mg Q12H PRN PO CONSTIPATION Last administered on 05:38; Admin Dose 100 MG; Start 11/21/16 at 23:30 IV Flush (NS 10 ml) 10 ml PRN PRN IV IV PROTOCOL; Start 11/25/16 at 14:00 Fluconazole (Diflucan) 100 mg DAILY GTB Last administered on 12/12/16 09:02; Admin Dose 100 MG; Start 12/03/16 at 16:00 Lansoprazole (Prevacid) 30 mg DAILY@06 GTB Last administered on 12/12/16 05:38 ; Admin Dose 30 MG; Start 12/04/16 at 06:00 Digoxin (Digoxin) 0.125 mg DAILY@13 GTB Last administered on 12/12/16 13:16; Admin Dose 0.125 MG; Start 12/04/16 at 13:00 Apixaban 2.5 mg 2.5 mg BID GTB Last administered on 12/12/16 09:03; Admin Dose 2.5 MG; Start 12/03/16 at 21:00 Imipenem/ Cilastatin Sodium (Primaxin 500 Mg/ 100 ml (Pmx)) 100 ml @ 100 mls/ hr Q12 IVPB Last administered on 12/12/16 09:04; Admin Dose 100 MLS/HR; Start 12/09/16 at 13:00 Metoprolol Tartrate (Lopressor) 100 mg BID PEG Last administered on 12/12/16 09:03; Admin Dose 100 MG; Start 12/11/16 at 09:00 Collagenase (Santyl) 1 applic DAILY TOP ; Start 12/12/16 at 15:30 Magnesium Hydroxide (Milk Of Mag) 30 ml DAILY PO ; Start 12/12/16 at 14:30 Lactulose (Enulose) 20 gm Q6H PRN PO CONSTIPATION; Start 2/12/17 at 14:30 Assessment/Plan Additional Assessment/Plan IMPRESSION: 1. Hypoxemic respiratory failure. 2. Dementia. 3. Significant cachexia and malnutrition. 4. Multiple decubitus ulcers and polymicrobial sepsis. RECS: 1. Continue O2. 2. Bronchodilators. 3. Pulmonary toilet. 4. Antibiotics--> de-escalate 5. Palliative care RACHELLE Sexton MD Dec 12, 2016 15:07
[2016-12-12] MEDS: COLLAGENASE 30 GM TUBE TOP SCH (15:30)
[2016-12-12] MEDS: MAGNESIUM HYDROXIDE 30ML CUP PO SCH (16:36)
--- NOTE | 2016-12-12 19:08 | PN ---
DATE: 12/12/2016 I had a discussion with the nursing staff regarding the patient's condition. The patient has episod es of tachycardia. In addition, we discussed the patient's multiple wounds as the patient was seen by the community education specialist. I told them that we need to follow all the wound care recommendations. In addition, I had a long discussion with the patient's son, his name is Philly. We met in the hallway next to the patient's bed. I informed him about the patient's ongoing decline over the past few wee ks, multiple hospitalizations, overall debilitated state, and I offered to be evaluated by the [facility] physician and also by hospice care and he agreed, so we will consult the outside hospice company to evaluate the patient and discuss with family. PHYSICAL EXAMINATION: VITAL SIGNS: Temperature 98.6, pulse 101, respirations 18, blood pressure 107/62, saturation 96% on 2 liters. GENERAL: The patient is in no acute distress. The patient is very weak, staring, pale, temporal wa sting, decreased dentition. CARDIOVASCULAR: S1 and S2, regular rate. LUNGS: Decreased bilaterally, otherwise clear. ABDOMEN: Soft. G-tube in place. EXTREMITIES: No clubbing, cyanosis, or edema. She does have a left hip wound. I reviewed all the patient's wounds noted in the chart by the pictures. LABORATORY DATA: White count is 8.7, hemoglobin 9.4, hematocrit 30, platelet count is ____, neutro phils 69%, lymphocytes 21%. Again, white count is normal now. Sodium is 139, potassium 4.4, chlori de 103, bicarbonate 28, BUN is 33, creatinine 0.57, glucose 127. MEDICATIONS: Reviewed, include the followin. Lopressor 100 b.i.d. via PEG. 2. Imipenem 500 IV q.12. 3. Xopenex and Atrovent every 6 hours and p.r.n. 4. Mucomyst every 6 hours. 5. Digoxin 0.125 daily. 7. Prevacid 30 mg daily. 8. Eliquis 2.5 b.i.d. 9. Diflucan 100 mg daily. 10. Zofran p.r.n. 11. Tylenol p.r.n. 12. [place] p.r.n. 13. Morphine p.r.n. 14. Colace p.r.n. ASSESSMENT AND PLAN: This is a very unfortunate, very sick 81-year-old Middle-Eastern female with h istory of cerebrovascular accident, debilitated, bedridden state, contracted, dysphagia, hypertensio n, paroxysmal atrial fibrillation, and carotid stenosis who presented with encephalopathy, dehydrati on, acute renal failure, left heel wounds, dysphagia status post G-tube placement with episodic resp iratory distress and now episodes of supraventricular tachycardia and paroxysmal atrial fibrillation . 1. Respiratory. Continue supportive care, treat for tracheobronchitis. Continue O2 support, breat marcial treatments and suctioning. Remains on Mucomyst. I appreciate pulmonary input. 2. Infectious disease. Since we started the patient on antibiotics, the patient's white count is n ow normal, afebrile. Continue the same. 3. Neurologically remains very debilitated and not very responsive. This was noted over the course of days to weeks. She is declining. 4. Paroxysmal atrial fibrillation. Remains on Eliquis dose per kidney function and age. Continue digoxin. 5. Gastrointestinal remains stable and no need for transfusion. 6. The patient is DO NOT RESUSCITATE/DO NOT INTUBATE. 7. Prognosis is poor. The patient with poor quality of life, status post cerebrovascular accident. She has dysphagia, multiple wounds, very debilitated, not communicative. We will consult hospice for evaluation. We will follow. Dictated By: SHAWNA DONALD/RAQUEL Conf#: [id number] DID#: [id number]
[2016-12-13] VITALS (11 sets, daily range): BP systolic 105–134; BP diastolic 64–84; PULSE 75–95; RESP 16–20
[2016-12-13] MEDS: LEVALBUTEROL (NEB) 0.63 MG/3 ML AMP HHN SCH ×4 (01:44→19:40)
[2016-12-13] MEDS: IPRATROPIUM (NEB) 0.5 MG/2.5 ML AMP HHN SCH ×4 (01:44→19:40)
[2016-12-13] MEDS: ACETYLCYSTEINE 20% 4 ML VIAL NEB SCH ×4 (01:45→19:40)
[2016-12-13] MEDS: COLLAGENASE 30 GM TUBE TOP SCH (03:00)
[2016-12-13] MEDS: LANSOPRAZOLE 30 MG CAP GTB SCH (05:18)
[2016-12-13] MEDS: LACTULOSE 30ML CUP PO PRN (08:22)
[2016-12-13] MEDS: FLUCONAZOLE 100 MG TAB GTB SCH (08:22)
[2016-12-13] MEDS: MAGNESIUM HYDROXIDE 30ML CUP PO SCH (08:22)
[2016-12-13] MEDS: METOPROLOL 50 MG TAB PEG SCH ×2 (08:22→21:28)
[2016-12-13] MEDS: APIXABAN 5 MG TABLET GTB SCH ×2 (08:22→21:28)
[2016-12-13] MEDS: IMIPENEM-CILAST 500MG IV (PMX) 100 ML IVPB SCH ×2 (08:28→21:28)
--- NOTE | 2016-12-13 12:39 | PN ---
DATE: 12/13/2016 SUBJECTIVE: Patient's ulcer remains stable. Hypoxemia has improved. She is now down to 2 L nasal c annula. OBJECTIVE: VITAL SIGNS: Temperature 98, pulse 66, blood pressure 115/64, O2 saturation 95% on 2 L nasal cannul a. NECK: Supple, no JVD or lymphadenopathy. HEENT: Pupils equal and reactive to light. Dry mucous membranes. CARDIAC: S1, S2. A II/ systolic ejection murmur. CHEST: Diminished air entry both lung bases. ABDOMEN: Soft, nontender. No guarding or rebound. EXTREMITIES: No cyanosis, clubbing. Edema trace. NEUROLOGIC: Generalized weakness. SKIN: Multiple decubitus ulcers. LABORATORY DATA: White count was 8.7, hemoglobin was 9.4, platelets 459, BUN 33, creatinine 0.57. IMPRESSION AND PLAN: 1. Hypoxemic respiratory failure. 2. Cachexia. 3. Dementia. 4. Multiple decubitus ulcers. PLAN: 1. Wound care. 2. Pulmonary toilet. 3. Supplemental O2. 4. Consider deescalating antibiotics. 5. Consider palliative care evaluation. Dictated By: СЕРГЕЙ ALATORRE/RAQUEL Conf#: [id number] DID#: [id number]
[2016-12-13] MEDS: DIGOXIN 0.125 MG TAB GTB SCH (15:24)
--- NOTE | 2016-12-13 20:22 | PN ---
DATE: 12/13/2016 SUBJECTIVE: Patient seen. Patient appears to be comfortable. T-max is 99. Patient remains not re sponding much to verbal stimuli, staring. Lying on the right side of her body. She has an air danuta ress. PHYSICAL EXAMINATION: VITAL SIGNS: Temperature 99, pulse 70, respirations 22, blood pressure 105/67, saturation 96% on 2 liters. GENERAL: The patient is in no acute distress. Patient is pale. Mouth is open. Temporal wasting. CARDIOVASCULAR: S1 and S2, regular rate. LUNGS: Decreased bilaterally. ABDOMEN: Soft. G-tube in place. EXTREMITIES: Trace edema right hand. Otherwise, no significant edema throughout. She has multiple wounds in the left heel, sacrum. LABORATORY DATA: White count is now normal at 8.7, hemoglobin 9.4, hematocrit 30, platelet count el evated at 459, neutrophils 69%, lymphocytes 21%. Chemistry: Sodium 139, potassium 4.4, chloride 10 0, bicarbonate 28, BUN is 33, creatinine 0.57, glucose of 127. Both labs are from yesterday. Urine culture dated on 12/04/2016 was negative. MEDICATIONS: Include: 1. Santyl applied daily. 2. Milk of Magnesia daily. 3. Lactulose p.r.n. 4. Metoprolol 100 b.i.d. 5. Imipenem 500 IV q.12. 6. Xopenex and Atrovent every 6 hours p.r.n. 7. Mucomyst q.6h. 8. Digoxin 0.125 daily. 9. daily. 10. Eliquis 2.5 b.i.d. 11. Diflucan 100 mg daily. 12. Zofran p.r.n. 13. Tylenol p.r.n. 14. [place] p.r.n. 15. Morphine p.r.n. 16. p.r.n. No radiographic imaging. ASSESSMENT AND PLAN: This is a very unfortunate 81-year-old female with history of C VA, debilitated, bedridden state, contracted, dysphagia, hypertension, paroxysmal atrial fibrillatio n, carotid stenosis, who presented with worsening encephalopathy, dehydration, acute renal failure, left heel wound, dysphagia. G-tube was since placed. Had an episode of respiratory distress, statu s post antibiotic management, suctioning and breathing treatment. 1. Respiratory. Currently being treated for tracheobronchitis with imipenem. Improved. Continue O2 support, breathing treatments, suctioning. I appreciate pulmonary input. 2. Infectious disease. Remains on antibiotics. White count is now normal. Continue treatment for about 7 days. 3. Neurologic. Remains very debilitated and not very responsive. 4. Paroxysmal atrial fibrillation. On anticoagulation with Eliquis. Continue beta blockers. Cont inue digoxin. 5. Gastrointestinal. Hemoglobin and hematocrit stable. 6. Patient is DNR/DNI. Recommend hospice care. Family to meet with hospice services today to [facility] and then hopefully [facility]. The patient overall has poor quality of life. We will follow. Dictated By: SHAWNA DONALD/RAQUEL Conf#: [id number] DID#: [id number]
--- NOTE | 2016-12-13 21:20 | PN ---
DATE: 12/13/2016 CARDIOLOGY FOLLOWUP SUBJECTIVE: Discussed with staff. The patient remains in sinus rhythm, remains nonverbal. MEDICATIONS: Reviewed. PHYSICAL EXAMINATION: VITAL SIGNS: Temperature 99.3, heart rate of 84, blood pressure 112/80, respiration rate of 18, sat urating 96%. HEENT: Normocephalic, atraumatic. Elderly female. Pupils are equal. CARDIOVASCULAR: Regular rate and rhythm. PULMONARY: With no wheezes, ____ rhonchi at the base. GASTROINTESTINAL: Soft, status post PEG placement. EXTREMITIES: With trivial lower extremity edema. NEUROLOGIC: Awake. Does not answer questions. PSYCHIATRIC: Appears to be calm at this point. LABORATORY: WBC of 8.7, hemoglobin 9.4, platelets of 459. Sodium 139, potassium 4.4, BUN of 33, cr eatinine 0.57, glucose 127. ASSESSMENT AND PLAN: 1. Paroxysmal atrial fibrillation, currently in sinus rhythm. 2. Sinus tachycardia, currently improved. 3. Status post sepsis and urinary tract infection. 4. Dysphagia, status post percutaneous endoscopic gastrostomy placement. 5. Encephalopathy. 6. ____ aspiration. 7. Anemia. RECOMMENDATIONS: We will continue with the current cardiac care. The patient remains in sinus rhyt hm. Antibiotic as per Dr. Carolina. Metoprolol will be continued at the current dose. Pulmonary care will be continued as well. Anticoagulation, as tolerated, will be continued. Dictated By: REBECA SOLIMAN MD AV/NTS Conf#: [id number] DID#: [id number] CC: SHAWNA CAROLINA MD; СЕРГЕЙ CAZARES MD;*[facility]*
[2016-12-14] VITALS (12 sets, daily range): BP systolic 130–150; BP diastolic 59–89; PULSE 78–91; RESP 16–18
[2016-12-14] MEDS: IPRATROPIUM (NEB) 0.5 MG/2.5 ML AMP HHN SCH ×4 (01:54→19:38)
[2016-12-14] MEDS: ACETYLCYSTEINE 20% 4 ML VIAL NEB SCH ×4 (01:54→19:39)
[2016-12-14] MEDS: LEVALBUTEROL (NEB) 0.63 MG/3 ML AMP HHN SCH ×4 (01:54→19:38)
[2016-12-14] MEDS: LANSOPRAZOLE 30 MG CAP GTB SCH (05:08)
[2016-12-14] MEDS: IMIPENEM-CILAST 500MG IV (PMX) 100 ML IVPB SCH ×2 (07:54→20:47)
[2016-12-14] MEDS: LACTULOSE 30ML CUP PO PRN (07:54)
[2016-12-14] MEDS: MAGNESIUM HYDROXIDE 30ML CUP PO SCH (07:54)
[2016-12-14] MEDS: METOPROLOL 50 MG TAB PEG SCH ×2 (07:55→20:47)
[2016-12-14] MEDS: APIXABAN 5 MG TABLET GTB SCH ×2 (07:55→20:48)
[2016-12-14] MEDS: FLUCONAZOLE 100 MG TAB GTB SCH (07:55)
[2016-12-14] MEDS: COLLAGENASE 30 GM TUBE TOP SCH (07:56)
[2016-12-14] MEDS: DIGOXIN 0.125 MG TAB GTB SCH (12:18)
--- NOTE | 2016-12-14 15:02 | PN ---
DATE: 12/14/2016 REASON FOR FOLLOWUP: Respiratory distress. SUBJECTIVE: This patient remains stable this morning. Eyes open, no evidence of accessory muscle u se. PHYSICAL EXAMINATION: VITAL SIGNS: Temperature 98, pulse 85, blood pressure 130/69, O2 saturation 99% on 2 L nasal cannul a. NECK: Supple, no JVD or lymphadenopathy. Dry mucous membranes. Pupils equal and reactive to light . CARDIAC: S1, S2, II/ systolic ejection murmur. CHEST: Diminished air entry bilaterally. ABDOMEN: Soft, nontender. No guarding or rebound. EXTREMITIES: No cyanosis, clubbing. Edema +1. NEUROLOGIC: Grossly intact. LABORATORY DATA: Not drawn today. IMPRESSION AND PLAN: 1. Aspiration syndrome. 2. Chronic dementia. 3. Multiple decubitus ulcers. 4. Resolving leukocytosis. PLAN: 1. Continue wound care. 2. [facility]. Overall, prognosis remains poor. I agree with hospice evaluation also. Dictated By: СЕРГЕЙ ALATORRE/RAQUEL Conf#: [id number] DID#: [id number]
--- NOTE | 2016-12-14 15:43 | PN ---
DATE: 12/14/2016 SUBJECTIVE: The patient seen. The patient with no specific events overnight. The patient appears to be comfortable. Nasal cannula in place. The patient did respond with nodding when asked if she is okay. PHYSICAL EXAMINATION: VITAL SIGNS: Temperature 98.1, pulse 85, respirations 20, blood pressure 130/59, saturation 99% on 2 liters. GENERAL: The patient is in no acute distress. The patient is pale, frail. CARDIOVASCULAR: S1, S2, regular rate. LUNGS: Clear. ABDOMEN: Soft, nontender. EXTREMITIES: No clubbing, cyanosis, or edema. LABORATORY DATA: Dated 12/12/2016 were reviewed. MEDICATIONS: Include: 1. Santyl daily. 2. Milk of magnesia daily. 3. Lactulose p.r.n. 4. Lopressor 100 b.i.d. 5. Imipenem 500 IV q.12h. 6. Xopenex every 6 hours. 7. Ipratropium every 6 hours. 8. Mucinex every 6 hours. 9. Digoxin 0.25 daily. 10. Prevacid mg daily. 11. Eliquis 2.5 b.i.d. 12. Diflucan 100 mg daily. 13. Zofran p.r.n. 14. Tylenol p.r.n. 15. [place] p.r.n. 16. Morphine p.r.n. 17. Colace p.r.n. ASSESSMENT AND PLAN: This is an 81-year-old female with history of cerebrovascular a ccident, debilitated, bedridden state, contracted, dysphagia, hypertension, paroxysmal atrial fibril lation, carotid stenosis, who presented with worsening encephalopathy, dehydration, acute renal fail ure, left heel wound, dysphagia, G-tube feeding, status post respiratory distress, antibiotic management. 1. Respiratory. Stable status post a brief episode of respiratory failure which may be related to tracheobronchitis, mucous plug, etc. Responded well to antibiotic regimen, breathing treatment, O2 support. 2. Infectious disease. Currently on imipenem. Will finish soon antibiotics within a few days. 3. Neurologically, very debilitated but slightly more responsive today. 4. Paroxysmal atrial fibrillation. Remains anticoagulated with Eliquis, also beta blockers and dig oxin. Vitals are stable. The patient is DNR/DNI. Family met with hospice care team and most likel y they will agree to joint, but in the meantime the patient will be transferred back to [facility] in the a.m. upon family request and then we will see. 5. Gastrointestinal. Continue to monitor. Hemoglobin and hematocrit remain stable. Continue GI p rophylaxis. 6. Multiple decubitus wounds. Continue wound care, Santyl, offloading, nutritional support. 7. Continue G-tube feeding. She is tolerating it well. DISPOSITION: Transfer in the a.m. as discussed with the son. Dictated By: SHAWNA DONALD/RAQUEL Conf#: [id number] DID#: [id number]
[2016-12-14] MEDS: morphine 2 MG INJ IV PRN (17:27)
--- NOTE | 2016-12-14 21:18 | PN ---
DATE: 12/14/2016 CARDIOLOGY FOLLOWUP SUBJECTIVE: Discussed with the staff. Rhythm strip was reviewed. The patient remains in sinus rhy thm. The patient remains nonverbal, remains in sinus rhythm. MEDICATIONS: Reviewed. PHYSICAL EXAMINATION: VITAL SIGNS: Temperature 98.7, heart rate of 79, blood pressure 147/88, respiration rate of 18, sat urating 98%. HEENT: Normocephalic, atraumatic. Pupils are equal. CARDIOVASCULAR: Regular rate and rhythm. PULMONARY: No wheezes anteriorly. No rhonchi. GASTROINTESTINAL: Soft, nontender. EXTREMITIES: No significant lower extremity edema. NEUROLOGIC: Awake, does open eyes, does not answer question. ASSESSMENT AND PLAN: 1. Paroxysmal atrial fibrillation, currently remains in sinus rhythm. 2. Status post aspiration, currently has improved. 3. Dysphagia, status post percutaneous endoscopic gastrostomy placement. 4. Hypertension, well controlled on beta sandip now. 5. Encephalopathy. 6. Anemia. 7. History of deep venous thrombosis. RECOMMENDATIONS: We will continue with the current cardiac care. Beta sandip and anticoagulation as tolerated will be continued. Antibiotic as per and associates. Dictated By: REBECA SOLIMAN MD AV/NTS Conf#: [id number] DID#: [id number] CC: SHAWNA CAROLINA MD;*End*
--- NOTE | 2016-12-14 22:50 | PN ---
Date/Time of Note Date/Time of Note DATE: 12/14/16 TIME: 22:49 Assessment/Plan Lines/Catheters IV Catheter Type (from [facility]): PICC Line [place] in Place (from [facility]): Yes Assessment/Plan Problems: (1) Decubitus ulcer, heel Qualifiers: Pressure ulcer stage: stage III (2) Altered level of consciousness Status: Acute (3) Aspiration pneumonia Status: Acute Qualifiers: Aspiration pneumonia type: unspecified Laterality: unspecified laterality Lung location: unspecified part of lung Qualified Code: J69.0 - Aspiration pneumonia, unspecified aspiration pneumonia type, unspecified laterality, unspecified part of lung Assessment/Plan Continue offloading of both heels. Patient will be monitored while in the hospital. Patient will require foot care and evaluation on an ongoing basis. Subjective 24 Hr Interval Summary Patient was seen at bedside. Patient's daughter was present. Patient is noncommunicative to verbal command. Patient's daughter states that her mother is being placed in a fpc facility. She does not know the timing of discharge. Constitutional: no complaints Exam/Review of Systems Vital Signs Vitals Vital Signs Date Time Temp Pulse Resp B/P Pulse Ox O2 Delivery O2 Flow Rate FiO2 12/14/16 20:28 91 12/14/16 20:00 Nasal Cannula 2.0 12/14/16 20:00 99.0 17 134/78 100 12/12/16 01:56 28 Intake and Output 12/13/16 12/13/16 12/14/16 15:00 23:00 07:00 Intake Total 100 ml 800 ml 860 ml Output Total 600 ml 1400 ml Balance 100 ml 200 ml -540 ml Exam Free Text/Dictation Patient is laying supine in bed. Patient appears to be contracted in the lower extremities. Bilateral feet are in heel protectors. Continues to have dry eschar on bilateral heels. No active open wounds noted and no sign of infection present. Patient has contracted toes. Pedal pulses are not palpable bilateral feet. Protective sensation remains decreased. White blood count is 8.7. Results Result Diagram: 12/12/1672912/12/16729 LEON FLYNN DPM Dec 14, 2016 22:50
[2016-12-15] VITALS (10 sets, daily range): BP systolic 123–141; BP diastolic 69–79; PULSE 76–84; RESP 17–18
[2016-12-15] MEDS: morphine 2 MG INJ IV PRN ×2 (01:02→05:06)
[2016-12-15] MEDS: IPRATROPIUM (NEB) 0.5 MG/2.5 ML AMP HHN SCH ×3 (01:27→13:47)
[2016-12-15] MEDS: LEVALBUTEROL (NEB) 0.63 MG/3 ML AMP HHN SCH ×3 (01:27→13:47)
[2016-12-15] MEDS: ACETYLCYSTEINE 20% 4 ML VIAL NEB SCH ×3 (01:27→13:48)
[2016-12-15] MEDS: LANSOPRAZOLE 30 MG CAP GTB SCH (05:06)
[2016-12-15 07:24] LABS: BASOPHILS % 0.3 % (0.0-2.0); EOSINOPHILS # 0.1 10^3/ul (0.0-0.5); EOSINOPHILS % 0.7 % (0.0-7.0); HEMATOCRIT 29.3 % (37.0-47.0); HEMOGLOBIN 9.2 g/dl (12.0-16.0); LYMPHOCYTES % 23.5 % (15.0-51.0); MEAN CORPUSCULAR HEMOGLOBIN 20.4 pg (29.0-33.0); MEAN CORPUSCULAR HGB CONC 31.3 g/dl (32.0-37.0); MEAN CORPUSCULAR VOLUME 65.3 fl (82.0-101.0); MEAN PLATELET VOLUME 9.8 fl (7.4-10.4); MONOCYTE # 0.9 10^3/ul (0.3-0.9); MONOCYTES % 10.2 % (0.0-11.0); NEUTROPHIL # 5.6 10^3/ul (1.6-7.5); NEUTROPHILS % 65.3 % (39.0-77.0); PLATELET COUNT 425 10^3/UL (140-440); RED BLOOD COUNT 4.49 10^6/ul (4.20-5.40); RED CELL DISTRIBUTION WIDTH 20.2 % (11.5-14.5); UNCORRECTED WBC 8.5 10^3/ul (4.8-10.8); WHITE BLOOD COUNT 8.5 10^3/ul (4.8-10.8)
[2016-12-15 07:30] LABS: CONDITION 1; LH ANALYZER COMMENTS 1; SUSPECT 1
[2016-12-15 07:43] LABS: CREATININE 0.53 mg/dl (0.44-1.00)
[2016-12-15 07:44] LABS: CALCIUM 9.1 mg/dl (8.4-10.2)
[2016-12-15 08:03] LABS: MAGNESIUM 2.5 mg/dl (1.7-2.5); PHOSPHORUS 2.5 mg/dl (2.5-4.9)
[2016-12-15] MEDS: COLLAGENASE 30 GM TUBE TOP SCH (09:00)
[2016-12-15] MEDS: MAGNESIUM HYDROXIDE 30ML CUP PO SCH (09:00)
[2016-12-15] MEDS: APIXABAN 5 MG TABLET GTB SCH (09:57)
[2016-12-15] MEDS: FLUCONAZOLE 100 MG TAB GTB SCH (09:57)
[2016-12-15] MEDS ORDERED: NA POLYST SULFON 15 GM/60 ML BTL PO ONE (10:00)
[2016-12-15] MEDS ORDERED: SOD CHLORIDE 0.9% 500 ML IV ONE (10:00)
[2016-12-15] MEDS: IMIPENEM-CILAST 500MG IV (PMX) 100 ML IVPB SCH (10:03)
[2016-12-15] MEDS: METOPROLOL 50 MG TAB PEG SCH (10:04)
--- NOTE | 2016-12-15 10:28 | PN ---
DATE: 12/15/2016 CARDIOLOGY FOLLOWUP SUBJECTIVE: Discussed with the staff. Rhythm strip was reviewed. She remains in sinus rhythm. Sh richelle has frequent PACs, no more atrial fibrillation. The patient remains nonverbal. MEDICATIONS: Reviewed. PHYSICAL EXAMINATION: VITAL SIGNS: Temperature 98.5, heart rate of 80, blood pressure 123/72, respiratory rate of 18, sat urating 100%. HEENT: Normocephalic, atraumatic. Pupils are equal. CARDIOVASCULAR: Regular rate and rhythm, systolic murmur. PULMONARY: No wheezes heard now. No rhonchi. GASTROINTESTINAL: Soft, nontender. EXTREMITIES: Trivial lower extremity edema. NEUROLOGIC: Sleeping comfortably. Does not answer questions. LABORATORY DATA: WBC of 8.5, hemoglobin 9.2, platelets of 425. Sodium 136, potassium is 6, BUN of 32, creatinine of 5.3. ASSESSMENT AND PLAN: 1. Paroxysmal atrial fibrillation, currently sinus rhythm. 2. Pneumonia. 3. Hyperkalemia, possible lab error versus others. 4. Encephalopathy. 5. History of cerebrovascular accident. 6. History of deep venous thrombosis. RECOMMENDATIONS: We will continue with the current cardiac care. Potassium level to be repeated. Anticoagulation, Eliquis will be continued. Metoprolol will be continued at the current doses. I w ill stop the digoxin now that the patient has remained in sinus rhythm for the time being. We will continue with the beta sandip though. Dictated By: REBECA SOLIMAN MD AV/RAQUEL Conf#: [id number] DID#: [id number] CC: SHAWNA CAROLINA MD;*End*
--- NOTE | 2016-12-15 11:19 | PN ---
DATE: SUBJECTIVE: Patient Eliel remains unchanged, unresponsive on nasal cannula O2. No evidence of respi ratory distress. PHYSICAL EXAMINATION: VITAL SIGNS: Temperature 98, pulse 80, blood pressure 123/72, O2 saturation 96% on 2 L nasal cannul a. NECK: Supple. No JVD or lymphadenopathy. CARDIAC: S1, S2, no added sounds or murmurs. CHEST: Diminished air entry bilaterally. ABDOMEN: Soft, nontender. No guarding or rebound. EXTREMITIES: No cyanosis, clubbing, edema. NEUROLOGIC: Grossly intact. LABORATORY DATA: White count 8.6, hemoglobin 9.2, platelets of 425. Sodium 134, potassium 6. IMPRESSION AND PLAN: 1. Status post hypoxemic respiratory failure. 2. Advanced dementia. 3. Cachexia with multiple decubitus ulcers. 4. Hyperkalemia. The patient will require: 1. Correction of hyperkalemia. 2. Hospice evaluation. 3. Agreed with transfer to shelter facility. Dictated By: СЕРГЕЙ ALATORRE/RAQUEL Conf#: [id number] DID#: [id number]
[2016-12-15 13:26] LABS: POTASSIUM 4.2 mmol/L (3.5-5.1)
[2016-12-15 13:29] LABS: CREATININE 0.5 mg/dl (0.44-1.00)
[2016-12-15 13:30] LABS: CALCIUM 7.1 mg/dl (8.4-10.2)
--- NOTE | 2016-12-15 15:04 | PDOCDIS ---
Discharge Instructions CONDITION Patient Condition: Stable HOME CARE INSTRUCTIONS: Special Diet: tube feeding ACTIVITY: Activity Restrictions: Slowly Increase Activity FOLLOW UP/APPOINTMENTS Appointments dc to [facility], see reconciliation SHAWNA CAROLINA MD Dec 15, 2016 15:04
--- NOTE | 2016-12-15 16:08 | DS ---
DATE OF ADMISSION: 11/21/2016 DATE OF DISCHARGE: 12/15/2016 REASON FOR ADMISSION: Sepsis, UTI, hypernatremia, non-ST elevation myocardial and profound dehydrat ion. HOSPITAL COURSE: The patient is an 81-year-old female with history of CVA with left- sided hemiplegia, right ICA occlusion, hypertension, gastroesophageal reflux disease, dysphagia, on pureed diet. Unfortunately, very debilitated. She currently resides at [facility]. Also, she developed left heel necrotic ulcer. She is followed closely at [facility]. Unfortu nately, prior to admission, she was noted to be more lethargic and not eating much. She was confuse d and encephalopathic, more than usual. She was found to have elevated white count of 18.2, positiv e leukocyte esterase and nitrate all consistent with UTI. Also, we were concerned about aspiration. The patient does have dysphagia. Lactic acid was elevated at 3.2. BUN and creatinine was 100/1.9 , all suggestive of profound dehydration and acute renal failure. Upon admission, the patient was s tarted on broad-spectrum antibiotics with imipenem and gentamicin. Ultimately, cultures came back a s Proteus mirabilis sensitive only to gentamicin and tobramycin. Antibiotics were then switched to tobramycin with good results. Repeat urine culture later on was negative. Also, urine studies were negative as well. After treatment, the patient improved. Unfortunately, she continues to have pro blems with swallowing, not able to have enough nutrition support and she was seen by the dietitian a nd speech therapy. Ultimately, it was decided to proceed with G-tube placement upon discussion wit h family members. When we also tried to feed her orally, she would pocket food in her mouth and wou ld be at very high risk of aspiration. The patient did have an episode of respiratory failure requi ring briefly to be placed on a nonrebreather mask. Pulmonary was consulted as well during that epis ode and I restarted the patient on antibiotic. Fortunately, the patient improved with deep suctioni ng, pulmonary care with breathing treatment and oxygen support. The other specialists recommended a s well comfort measures. I told the family that the patient has very poor quality of life, not very responsive and would advise her on hospice care. Family met with hospice for evaluation and still they are considering it. Overall, the patient now remains stable. She can be discharged back to [facility]. Temperature 97.6, pulse 72, respirations 18, blood pressure 141/69, saturation 100% on 2 L. DISCHARGE MEDICATIONS: Patient will be discharged with the following medications: 1. Tylenol 650 q.6h. p.r.n. 2. Eliquis 2.5 mg b.i.d. as the patient does have episodes of atrial fibrillation. She is dosed pe r age and weight. 3. Santyl applied topically as directed. 4. Colace 100 q.12 hours as needed. 5. Diflucan 100 mg daily for 3 days. 6. [place] 5/325 q.6h. p.r.n. 7. We will discontinue antibiotics. 8. Ipratropium and Atrovent every 6 hours. 9. Lactulose as directed. 10. Prevacid 30 mg daily. 11. Xopenex every 6 hours and p.r.n. 12. Milk of magnesia 30 mL daily. 13. Lopressor 100 mg b.i.d. 14. Zofran 4 mg via G-tube q.4 or p.r.n. 15. We are going to restart the patient on Atorvastatin 20 mg at bedtime. 16. Patient is off Plavix as now she is on Eliquis and Marylou-Chaz 1 tab daily. FINAL DIAGNOSIS: 1. Urinary tract infection sepsis. 2. Encephalopathy. 3. Acute renal failure. 4. Dehydration. 5. Rule out aspiration pneumonia. 6. Acute respiratory failure. 7. Dysphagia. 8. G-tube feeding. 9. History of cerebrovascular accident. 10. Hypertension. 11. Non-ST elevation myocardial infarction. The patient has slight elevation of troponin 0.2. Seen by cardiology. 12. Hypernatremia, resolved. 13. Left heel wound seen by Dr. Cason, ict developer. 14. Carotid stenosis. 15. Proteus mirabilis urinary tract infection. 16. Patient is DNR/DNI as discussed with family. 17. Paroxysmal atrial fibrillation. 18. Possible tracheobronchitis. CONDITION ON DISCHARGE: Guarded, long-term prognosis is poor. Case discussed very frequently with the son, Philly, phone number [phone]. DIET: Continue G-tube feeding. Will discontinue [place]. Dictated By: SHAWNA DONALD/RAQUEL Conf#: [id number] DID#: [id number]
== END 2016-12-15 18:30 | DRG 871 ==
LOC: E/R 21:41 → MS4 23:08 → MERGE 23:08
PROVIDERS: ADMIT Internal Medicine; ATTEND Internal Medicine
PROC: 02HV33Z Insertion of Infusion Device into Superior Vena Cava, Percutaneous Approach (ICD-10-PCS; 2016-11-21)
PROC: 0DH63UZ Insertion of Feeding Device into Stomach, Percutaneous Approach (ICD-10-PCS; principal; 2016-11-30 12:00)
DX: A41.9 Sepsis, unspecified organism (principal); G93.40 Encephalopathy, unspecified; J96.01 Acute respiratory failure with hypoxia; J69.0 Pneumonitis due to inhalation of food and vomit; I21.4 Non-ST elevation (NSTEMI) myocardial infarction; N17.9 Acute kidney failure, unspecified; R64 Cachexia; E87.0 Hyperosmolality and hypernatremia; R13.10 Dysphagia, unspecified; N39.0 Urinary tract infection, site not specified; Z68.1 Body mass index [BMI] 19.9 or less, adult; I69.354 Hemiplegia and hemiparesis following cerebral infarction affecting left non-dominant side; E46 Unspecified protein-calorie malnutrition; E44.0 Moderate protein-calorie malnutrition; L89.620 Pressure ulcer of left heel, unstageable; J40 Bronchitis, not specified as acute or chronic; N89.8 Other specified noninflammatory disorders of vagina; I73.9 Peripheral vascular disease, unspecified; Z93.1 Gastrostomy status; I10 Essential (primary) hypertension; I65.29 Occlusion and stenosis of unspecified carotid artery; I25.10 Atherosclerotic heart disease of native coronary artery without angina pectoris; I48.0 Paroxysmal atrial fibrillation; E86.0 Dehydration; R53.81 Other malaise; R62.7 Adult failure to thrive; D64.9 Anemia, unspecified; M24.532 Contracture, left wrist; F03.90 Unspecified dementia, unspecified severity, without behavioral disturbance, psychotic disturbance, mood disturbance, and anxiety; Z51.5 Encounter for palliative care; Z66 Do not resuscitate; Z86.718 Personal history of other venous thrombosis and embolism
CPT/HCPCS: 36569; 36600; 70450; 71010; 73100; 74230; 76937; 80048; 80053; 80061; 80162; 80170; 81001; 81003; 82270; 82378; 82550; 82553; 82803; 82962; 83036; 83605; 83735; 83880; 84100; 84134; 84439; 84443; 84484; 85025; 85610; 85730; 87040; 87081; 87086; 90686; 92526; 92610; 92611; 93005; 93306; 93923; 93970; 94640; 94664; 96374; 96375; C1769; C9113; J0690; J0692; J0743; J1450; J1580; J1650; J2270; J2765; J3370; J3475; J3480; J7040; J7042; J7050